=== PATIENT | male | born 1980 | race Caucasian/White ===

== ENCOUNTER → 2018-03-24 | Outpatient (CLI) | payer OTHER ==
[2018-03-24 10:31] LABS: HEMATOCRIT 39.7 % (42.0-52.0); HEMOGLOBIN 13.3 g/dl (13.5-17.5); MEAN CORPUSCULAR HEMOGLOBIN 29.3 pg (27.0-33.0); MEAN CORPUSCULAR HGB CONC 33.5 g/dl (32.0-36.5); MEAN CORPUSCULAR VOLUME 87.4 fl (80.0-96.0); PLATELET COUNT, AUTOMATED 196 10^3/uL (150-450); RED BLOOD COUNT 4.54 10^6/uL (4.30-6.10); RED CELL DISTRIBUTION WIDTH 12.2 % (11.5-14.5); WHITE BLOOD COUNT 3.8 10^3/uL (4.0-10.0)
[2018-03-24 10:46] LABS: ALBUMIN 3.7 GM/DL (3.2-5.2); ALBUMIN/GLOBULIN RATIO 1.06 (1.00-1.93); ALKALINE PHOSPHATASE 112 U/L (45-117); ALT/SGPT 90 U/L (12-78); ANION GAP 7 MEQ/L (8-16); AST/SGOT 24 U/L (7-37); BILIRUBIN,TOTAL 0.6 MG/DL (0.2-1.0); BLOOD UREA NITROGEN 9 MG/DL (7-18); CALCIUM LEVEL 8.6 MG/DL (8.5-10.1); CARBON DIOXIDE LEVEL 28 MEQ/L (21-32); CHLORIDE LEVEL 107 MEQ/L (98-107); CREATININE FOR GFR 0.87 MG/DL (0.70-1.30); GLOMERULAR FILTRATION RATE > 60.0 (>60); GLUCOSE, FASTING 101 MG/DL (70-100); POTASSIUM SERUM 4.3 MEQ/L (3.5-5.1); SODIUM LEVEL 142 MEQ/L (136-145); TOTAL PROTEIN 7.2 GM/DL (6.4-8.2)
[2018-03-24 12:34] LABS: CHLAMYDIA DNA AMPLIFICATION NEGATIVE (NEGATIVE); GC DNA AMPLIFICATION NEGATIVE (NEGATIVE)
[2018-03-25 10:34] LABS: HEPATITIS B SURFACE ANTIGEN NEGATIVE (NEGATIVE)
[2018-03-25 10:53] LABS: HIV 1&2 SCREEN CENTAUR NEGATIVE (NEGATIVE)
[2018-03-25 11:14] LABS: HEPATITIS C VIRUS ABY INDEX 1.6 INDEX (<0.8)
== END ==
LOC: M LAB 09:49
DX: F11.20 Opioid dependence, uncomplicated (principal); I45.10 Unspecified right bundle-branch block; R00.1 Bradycardia, unspecified
CPT/HCPCS: 93005

== ENCOUNTER 2018-07-15 09:47 | Emergency (ER) | payer OTHER ==
[2018-07-15] MEDS: ACETAMINOPHEN 325 MG TAB PO (10:28)
[2018-07-15] MEDS: METHOCARBAMOL 500 MG TAB PO (10:28)
== END 2018-07-15 11:30 | disposition home or self-care (01) ==
LOC: M ED 09:47
DX: S09.90XA Unspecified injury of head, initial encounter (principal); W11.XXXA Fall on and from ladder, initial encounter; Y92.89 Other specified places as the place of occurrence of the external cause
CPT/HCPCS: 70450

== ENCOUNTER 2018-11-05 13:01 | Emergency (ER) | payer OTHER ==
[~2018-11-05] VITALS: Ht 193 cm; Wt 115.9 kg
[~2018-11-05 13:01] MED LIST: IBUP-1022 PO; IBUP200T45 PO; METH10CO3 PO; NEUR300C PO; ROBA500T PO
[2018-11-05] MEDS ORDERED: PERCOCET 5MG/325MG TAB PO ONE (14:00)
--- NOTE | 2018-11-05 14:46 | REP ---
Right hand series: Four views. History: Injury in a fall. Findings: Four views of the right hand demonstrate overall mineralization. There is no evidence of fracture or subluxation. Impression: Negative radiographs of the right hand. Electronically Signed by Adi Gaffney MD 11/05/2018 02:38 P
--- NOTE | 2018-11-05 14:58 | REP ---
RIGHT FOREARM, TWO VIEWS: HISTORY: Fall. There is no acute fracture or dislocation. The joint spaces are normal in appearance. IMPRESSION: There is no acute fracture or dislocation. Electronically Signed by Alphonse Trevino MD 11/05/2018 02:58 P
[2018-11-05] MEDS ORDERED: IBUP-1022 PO (15:10)
[2018-11-05 15:29] VITALS: BP 148/86
== END 2018-11-05 15:28 | disposition home or self-care (01) ==
LOC: M ED 13:01
DX: S63.501A Unspecified sprain of right wrist, initial encounter (principal); S60.221A Contusion of right hand, initial encounter; W19.XXXA Unspecified fall, initial encounter; Y92.099 Unspecified place in other non-institutional residence as the place of occurrence of the external cause; Y93.9 Activity, unspecified; Y99.9 Unspecified external cause status; Z72.0 Tobacco use; Z79.899 Other long term (current) drug therapy; Z88.0 Allergy status to penicillin

== ENCOUNTER 2019-02-12 10:06 | Emergency (ER) | payer OTHER ==
[~2019-02-12] VITALS: Ht 193 cm; Wt 114.5 kg
[2019-02-12 10:06] VITALS: BP 148/77
[2019-02-12] MEDS ORDERED: IBUP80TA PO (11:07)
[2019-02-12] MEDS ORDERED: GABA-843 PO (11:07)
== END 2019-02-12 11:17 | disposition home or self-care (01) ==
LOC: M ED 10:06
DX: Z76.0 Encounter for issue of repeat prescription (principal); G89.29 Other chronic pain; M54.9 Dorsalgia, unspecified; Z87.81 Personal history of (healed) traumatic fracture; M41.9 Scoliosis, unspecified; F19.10 Other psychoactive substance abuse, uncomplicated; Z72.0 Tobacco use; Z79.899 Other long term (current) drug therapy; Z88.0 Allergy status to penicillin

== ENCOUNTER → 2019-05-14 | Outpatient (CLI) | payer OTHER ==
[~2019-05-14] MED LIST changes: +GABA-843 PO; +IBUP80TA PO
--- NOTE | 2019-05-15 16:08 | ECGEPIP ---
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
== END ==
LOC: M EKG 10:37
PROVIDERS: ATTEND Nurse Practitioner Family
DX: F11.20 Opioid dependence, uncomplicated (principal)

== ENCOUNTER 2019-06-07 15:50 | Emergency (ER) | payer MEDICAID, OTHER ==
[~2019-06-07] VITALS: Ht 193 cm; Wt 122.1 kg
[2019-06-07 15:50] VITALS: BP 144/84
--- NOTE | 2019-06-07 18:34 | REP ---
Left femur series: Four views. History: Injury in a fall. Findings: Four views of the left femur show no evidence of fracture or subluxation. Femoral head is smooth and rounded. Hip joint spaces preserved. There is a metallic density superimposed on the left groin consistent with clothing artifact. Impression: No fracture seen. Electronically Signed by Adi Gaffney MD 06/07/2019 06:26 P
--- NOTE | 2019-06-07 18:47 | REPVR ---
EXAM: CT Head Without Contrast EXAM DATE/TIME: 06/07/2019 5:55 PM CLINICAL HISTORY: 39 years old, male; Pain; Other: Fall; Additional info: Fall 6ft TECHNIQUE: Imaging protocol: Computed tomography of the head without contrast. Radiation optimization: All CT scans at this facility use at least one of these dose optimization techniques: automated exposure control; mA and/or kV adjustment per patient size (includes targeted exams where dose is matched to clinical indication); or iterative reconstruction. COMPARISON: CT Head without contrast 07/15/2018 10:10 AM FINDINGS: Brain: No hemorrhage. Unremarkable white matter for the patient's age. No mass effect. No evolving territorial infarct. Hypodensities in the region of the lentiform nuclei, likely perivascular spaces. Ventricles: No ventriculomegaly. Bones/joints: Unremarkable. No acute fracture. Sinuses: Visualized sinuses are unremarkable. No fluid levels. Mastoid air cells: Visualized mastoid air cells are well aerated. Soft tissues: Unremarkable. IMPRESSION: No acute intracranial abnormality seen. Electronically signed by: Naty York On 06/07/2019 18:47:23 PM
--- NOTE | 2019-06-07 18:53 | REPVR ---
EXAM: CT Cervical Spine Without Contrast EXAM DATE/TIME: 06/07/2019 5:55 PM CLINICAL HISTORY: 39 years old, male; Pain; Other: Fall; Additional info: Fall 6ft TECHNIQUE: Imaging protocol: Computed tomography images of the cervical spine without contrast. Radiation optimization: All CT scans at this facility use at least one of these dose optimization techniques: automated exposure control; mA and/or kV adjustment per patient size (includes targeted exams where dose is matched to clinical indication); or iterative reconstruction. COMPARISON: CT Spine,cervical w/o contrast 07/15/2018 10:10 AM FINDINGS: Vertebrae: Reversal of the cervical lordosis may be positional or due to muscle spasm. No acute fracture seen. The degree of osseous mineralization is advanced/atypical for age. Discs/Spinal canal/Neural foramina: No significant disc height loss. Slight lower cervical prevertebral spondylosis. Soft tissues: Unremarkable. Oropharynx: Mild enlargement of the lingual tonsils, probably incidental. Lungs: Lung apices are normal. IMPRESSION: No cervical spine fracture seen. Electronically signed by: Naty York On 06/07/2019 18:53:01 PM
--- NOTE | 2019-06-07 19:03 | REPVR ---
EXAM: CT Thoracic Spine Without Contrast EXAM DATE/TIME: 06/07/2019 5:55 PM CLINICAL HISTORY: 39 years old, male; Pain; Other: Fall; Additional info: Fall 6ft TECHNIQUE: Imaging protocol: Computed tomography images of the thoracic spine without contrast. Radiation optimization: All CT scans at this facility use at least one of these dose optimization techniques: automated exposure control; mA and/or kV adjustment per patient size (includes targeted exams where dose is matched to clinical indication); or iterative reconstruction. COMPARISON: No relevant prior studies available. FINDINGS: Vertebrae: The degree of osseous demineralization is advanced for age. Mild mid thoracic dextroconvex scoliosis. No acute fracture seen. Discs/Spinal canal/Neural foramina: No spinal stenosis. Soft tissues: Unremarkable. Small hiatal hernia. IMPRESSION: No thoracic spine fracture seen. Electronically signed by: Naty York On 06/07/2019 19:03:28 PM
--- NOTE | 2019-06-07 19:09 | REPVR ---
EXAM: CT Lumbar Spine Without Contrast EXAM DATE/TIME: 06/07/2019 5:55 PM CLINICAL HISTORY: 39 years old, male; Pain; Other: Fall; Additional info: Fall 6ft TECHNIQUE: Imaging protocol: Computed tomography images of the lumbar spine without contrast. Radiation optimization: All CT scans at this facility use at least one of these dose optimization techniques: automated exposure control; mA and/or kV adjustment per patient size (includes targeted exams where dose is matched to clinical indication); or iterative reconstruction. COMPARISON: No relevant prior studies available. FINDINGS: Vertebrae: The degree of osseous demineralization is advanced for age. Slight upper lumbar levoconvex scoliosis. No acute fracture seen. Mild to moderate chronic appearing L3 vertebral body central compression without osseous retropulsion; excavation of the L3 superior and inferior endplates by Schmorl's nodes. Discs/Spinal canal/Neural foramina: Mild disc height loss at L2-3. No high-grade stenoses. Kidneys and ureters: There is a punctate nonobstructing right renal calculus. Soft tissues: Unremarkable. IMPRESSION: 1. No acute lumbar fracture seen. 2. Chronic L3 vertebral body compression deformity. Electronically signed by: Naty York On 06/07/2019 19:08:39 PM
[2019-06-07] MEDS ORDERED: IBUPROFEN 600 MG TAB PO ONE (20:00)
[2019-06-07] MEDS ORDERED: IBUP-1022 PO (20:04)
[2019-06-07] MEDS ORDERED: CYCL10TA PO (20:04)
== END 2019-06-07 20:19 | disposition home or self-care (01) ==
LOC: M ED 15:50
DX: S80.212A Abrasion, left knee, initial encounter (principal); T14.8XXA Other injury of unspecified body region, initial encounter; W11.XXXA Fall on and from ladder, initial encounter; Y92.018 Other place in single-family (private) house as the place of occurrence of the external cause; F17.210 Nicotine dependence, cigarettes, uncomplicated

== ENCOUNTER 2019-07-15 13:05 | Inpatient (IN) | payer OTHER ==
[~2019-07-15] VITALS: Ht 193 cm; Wt 122.7 kg
[~2019-07-15 13:05] MED LIST changes: +CYCL10TA PO
[2019-07-15] MEDS ORDERED: fentaNYL 100 MCG/2 ML INJECTION (J3010) As Ordered ONE (13:14)
[2019-07-15] MEDS ORDERED: ADACEL/BOOSTRIX VACCINE (DIPHTH/PERTUSS/ACELL/TETANUS)0.5ML SYR (90715) IM ONE (13:15)
[2019-07-15] MEDS ORDERED: LIDOCAINE 2% 5ML JELLY UROJET TOP ONE (13:15)
[2019-07-15] MEDS ORDERED: fentaNYL 100 MCG/2 ML INJECTION (J3010) IV ONE (13:15)
[2019-07-15] MEDS ORDERED: NS 1,000 ML IV ONE (13:15)
[2019-07-15] MEDS ORDERED: ceFAZolin SOD 2 GM in IV 1 EA IV ONE (13:30)
[2019-07-15] MEDS ORDERED: CLON-412 PO (13:36)
[2019-07-15] MEDS ORDERED: GABA600T4 PO (13:36)
[2019-07-15] MEDS: fentaNYL 100 MCG/2 ML INJECTION (J3010) IV PRN ×5 (13:40→21:48)
[2019-07-15] MEDS ORDERED: LORazepam 2 MG/ML VIAL (J2060) IV STA ×2 (13:43→14:50)
[2019-07-15] MEDS ORDERED: LORazepam 2 MG/ML VIAL (J2060) As Ordered ONE (13:44)
[2019-07-15 13:48] LABS: BASO # 0.1 10^3/uL (0.0-0.2); BASO % 0.6 % (0.0-1.0); EOS # 0.2 10^3/uL (0.0-0.5); EOS % 2.1 % (0.0-3.0); HEMATOCRIT 41.1 % (42.0-52.0); HEMOGLOBIN 13.6 g/dl (13.5-17.5); LYMPH # 3.8 10^3/uL (1.5-5.0); LYMPH % 40.4 % (24.0-44.0); MEAN CORPUSCULAR HEMOGLOBIN 30.8 pg (27.0-33.0); MEAN CORPUSCULAR HGB CONC 33.1 g/dl (32.0-36.5); MEAN CORPUSCULAR VOLUME 93.2 fl (80.0-96.0); MONO # 0.7 10^3/uL (0.0-0.8); NEUTROPHILS # 4.7 10^3/uL (1.5-8.5); NEUTROPHILS % 49.5 % (36.0-66.0); PLATELET COUNT, AUTOMATED 185 10^3/uL (150-450); RED BLOOD COUNT 4.41 10^6/uL (4.30-6.10); WHITE BLOOD COUNT 9.4 10^3/uL (4.0-10.0)
[2019-07-15 14:20] LABS: ALBUMIN 3.9 GM/DL (3.2-5.2); ALT/SGPT 46 U/L (12-78); AMYLASE 26 U/L (25-115); BILIRUBIN,DIRECT 0.2 MG/DL (0.0-0.2); BILIRUBIN,TOTAL 0.3 MG/DL (0.2-1.0); BLOOD UREA NITROGEN 16 MG/DL (7-18); CALCIUM LEVEL 9.6 MG/DL (8.5-10.1); CARBON DIOXIDE LEVEL 27 MEQ/L (21-32); CHLORIDE LEVEL 106 MEQ/L (98-107); CK-MB VALUE MASS 4.2 NG/ML (<3.6); CPK CREATINE PHOSPHOKINASE 1472 U/L (39-308); CREATININE FOR GFR 1.21 MG/DL (0.70-1.30); ETHYL ALCOHOL (ETHANOL) 0.132 % (0.000-0.010); GLOMERULAR FILTRATION RATE > 60.0 (>60); GLUCOSE, FASTING 82 MG/DL (70-100); LIPASE 95 U/L (73-393); MB/CK RELATIVE INDEX 0.29 (< OR =4); SODIUM LEVEL 140 MEQ/L (136-145); TOTAL PROTEIN 6.8 GM/DL (6.4-8.2); TROPONIN I < 0.02 NG/ML (< 0.10)
--- NOTE | 2019-07-15 14:26 | REP ---
Single view chest: 07/15/2019. Indication: Chest trauma. Comparison: None. Findings: The lungs are clear without evidence of contusion or airspace consolidation. There is no evidence of significant pleural effusion. The very tip of the right costophrenic angle is not within the field of view. There is no pneumothorax. No post traumatic abnormalities of the ribs or additional visualized osseous structures are noted. The cardiac silhouette is within normal limits. Impression: No acute cardiopulmonary or post traumatic abnormalities. Electronically Signed by Seth Cabrera DO 07/15/2019 02:18 P
--- NOTE | 2019-07-15 14:35 | REP ---
Bilateral tib-fib series: Nine views. History: Trauma. Findings: Multiple views of the right tibia and fibula demonstrate a severely comminuted, displaced and angulated distal tib-fib fracture. The tibial fracture shows 34 degrees of apex lateral angulation. No proximal tibial or fibular fracture is seen. There is 1 cm of medial displacement of the distal tibial fracture fragment. Fracture in the tibia does not appear to involve the articular surface of the distal tibia. There is some soft tissue gas adjacent to the fracture consistent with this being an open injury. Multiple views of the left tib-fib demonstrate a displaced comminuted open mid shaft left tibia and fibular fractures. The tibial fracture shows anterior displacement, 2.3 cm and some override in addition there is significant comminution. The fibular fracture shows some posterior displacement. There is mild apex medial angulation. Impression: Comminuted open bilateral tib-fib fractures as above. Electronically Signed by Adi Gaffney MD 07/15/2019 02:27 P
[2019-07-15 14:51] LABS: AMPHETAMINES LEVEL URINE NEGATIVE (NEGATIVE); BARBITURATES URINE NEGATIVE (NEGATIVE); BENZODIAZEPINES URINE NEGATIVE (NEGATIVE); CANNABINOIDS URINE NEGATIVE (NEGATIVE); COCAINE METABOLITE URINE NEGATIVE (NEGATIVE); METHADONE URINE POSITIVE (NEGATIVE); OPIATES URINE NEGATIVE (NEGATIVE); PHENCYCLIDINE URINE NEGATIVE (NEGATIVE)
[2019-07-15] MEDS ORDERED: HYDROMORPHONE HCL 0.5 MG/ 0.5 ML SYRINGE (J1170 PER 1) As Ordered ONE ×5 (14:57→20:52)
[2019-07-15] MEDS ORDERED: HYDROmorphone 2 MG TAB PO ONE (15:00)
[2019-07-15] MEDS ORDERED: IBUP80TA PO (15:33)
[2019-07-15 15:41] LABS: INR 1.06; PARTIAL THROMBOPLASTIN TIME 28.1 SECONDS (25.0-38.4); PROTHROMBIN TIME 13.5 SECONDS (11.8-14.0)
--- NOTE | 2019-07-15 15:46 | ECGEPIP ---
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
[2019-07-15] MEDS ORDERED: ceFAZolin 1GM INJ (J0690 PER 500MG) As Ordered ONE (16:36)
[2019-07-15] MEDS ORDERED: DESFLURANE 240 ML INHALANT As Ordered ONE (17:02)
[2019-07-15] MEDS ORDERED: KETAMINE HCL 200 MG/20 ML VIAL As Ordered ONE (17:02)
[2019-07-15] MEDS ORDERED: ROCURONIUM BROMIDE 50 MG/5 ML VIAL As Ordered ONE ×2 (17:02→17:46)
[2019-07-15] MEDS ORDERED: SUGAMMADEX SODIUM 500 MG/5 ML VIAL (BRIDION) As Ordered ONE (17:02)
[2019-07-15] MEDS ORDERED: dexameTHASONE 4 MG/ML 1ML VIAL (J1100) As Ordered ONE (17:02)
[2019-07-15] MEDS ORDERED: fentaNYL 250 MCG/5 ML INJECTION (J3010) As Ordered ONE ×2 (17:02→19:39)
[2019-07-15] MEDS ORDERED: MIDAZOLAM INJ 2 MG/2 ML VIAL (J2250) As Ordered ONE (17:02)
[2019-07-15] MEDS ORDERED: ONDANSETRON 4MG/2ML VIAL (J2405) As Ordered ONE ×2 (17:02→20:22)
[2019-07-15] MEDS ORDERED: SUCCINYLCHOLINE 100 MG/5 ML SYRINGE (J0330) As Ordered ONE (17:02)
[2019-07-15] MEDS ORDERED: LIDOCAINE 2% INJ 100 MG/5 ML SDV (FOR ANES.) As Ordered ONE (17:02)
[2019-07-15] MEDS ORDERED: PROPOFOL 200 MG/20 ML VIAL As Ordered ONE (17:02)
[2019-07-15] MEDS ORDERED: METOCLOPRAMIDE INJ 10MG/2ML VIAL (J2765) As Ordered ONE (17:02)
[2019-07-15] MEDS ORDERED: HYDROmorphone HCL 2 MG/ML 1ML VIAL (J1170) As Ordered ONE ×2 (19:14→19:47)
[2019-07-15] MEDS ORDERED: hydrALAZINE INJ 20 MG/ML VIAL As Ordered ONE (19:32)
[2019-07-15] MEDS ORDERED: fentaNYL 100 MCG/2 ML INJECTION (J3010) IV PRN (20:00)
[2019-07-15] MEDS ORDERED: LR 1,000 ML IV SCH (20:00)
[2019-07-15] MEDS ORDERED: ONDANSETRON 4MG/2ML VIAL (J2405) IV PRN (20:00)
[2019-07-15] MEDS ORDERED: oxyCODONE 5MG TAB PO PRN ×3 (20:00→21:00)
[2019-07-15] MEDS ORDERED: MEPERIDINE INJ 25 MG/ML VIAL (J2175) IV PRN ×2 (20:00→21:00)
[2019-07-15] MEDS ORDERED: HYDROMORPHONE HCL 0.5 MG/ 0.5 ML SYRINGE (J1170 PER 1) IV PRN ×2 (20:00)
[2019-07-15] MEDS ORDERED: MEPERIDINE INJ 25 MG/ML VIAL (J2175) As Ordered ONE (20:13)
[2019-07-15] MEDS: HYDROMORPHONE HCL 0.5 MG/ 0.5 ML SYRINGE (J1170 PER 1) IV PRN ×4 (20:30→20:54)
[2019-07-15] MEDS ORDERED: HYDROmorphone HCL 2 MG/ML 1ML VIAL (J1170) IV PRN ×3 (20:45→21:00)
[2019-07-15] MEDS ORDERED: LORazepam 2 MG TAB PO PRN (20:45)
[2019-07-15] MEDS ORDERED: oxyCODONE 5MG TAB As Ordered ONE ×2 (20:55→21:15)
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
[2019-07-15 21:36] VITALS: BP 150/76
[2019-07-15 21:45] VITALS: BP 150/76
[2019-07-15 22:00] VITALS: BP 150/76
[2019-07-15] MEDS ORDERED: PERCOCET 5MG/325MG TAB PO PRN ×2 (22:45)
[2019-07-15] MEDS ORDERED: ceFAZolin 1GM INJ (J0690 PER 500MG) IV SCH (22:45)
[2019-07-15 22:49] VITALS: BP 142/76
[2019-07-15] MEDS: THIAMINE 100 MG TAB PO SCH (22:53)
[2019-07-15] MEDS: HYDROmorphone HCL 2 MG/ML 1ML VIAL (J1170) IV PRN (23:36)
[2019-07-15] MEDS: ENOXAPARIN 30 MG/0.3 ML SYR (J1650) SC SCH (23:41)
[2019-07-15] MEDS: ceFAZolin SOD 1 GM in D5W MINI-BAG PLUS 50 ML IV SCH (23:41)
[2019-07-15] MEDS: NICOTINE 21MG/24HR 1 EA TRANSDERMAL TD SCH (23:46)
[2019-07-16] VITALS (25 sets, daily range): BP systolic 138–160; BP diastolic 63–76; O2SAT 96–100
[2019-07-16] MEDS: HYDROmorphone HCL 2 MG/ML 1ML VIAL (J1170) IV PRN ×3 (02:34→08:55)
[2019-07-16] MEDS: MORPHINE 4 MG/ML 1ML VIAL/SYRINGE (J2270) IV PRN ×3 (04:59→11:08)
[2019-07-16 05:13] LABS: HEMOGLOBIN 10.2 g/dl (13.5-17.5); MEAN CORPUSCULAR HGB CONC 32.9 g/dl (32.0-36.5); MEAN CORPUSCULAR VOLUME 94.2 fl (80.0-96.0); PLATELET COUNT, AUTOMATED 152 10^3/uL (150-450); RED BLOOD COUNT 3.29 10^6/uL (4.30-6.10); WHITE BLOOD COUNT 7.3 10^3/uL (4.0-10.0)
[2019-07-16 06:01] LABS: ALT/SGPT 35 U/L (12-78); BILIRUBIN,TOTAL 0.6 MG/DL (0.2-1.0); BLOOD UREA NITROGEN 10 MG/DL (7-18); CALCIUM LEVEL 8.1 MG/DL (8.5-10.1); CARBON DIOXIDE LEVEL 24 MEQ/L (21-32); CHLORIDE LEVEL 109 MEQ/L (98-107); CPK CREATINE PHOSPHOKINASE 1980 U/L (39-308); CREATININE FOR GFR 0.88 MG/DL (0.70-1.30); GLOMERULAR FILTRATION RATE > 60.0 (>60); GLUCOSE, FASTING 100 MG/DL (70-100); POTASSIUM SERUM 3.9 MEQ/L (3.5-5.1); SODIUM LEVEL 140 MEQ/L (136-145); TOTAL PROTEIN 5.9 GM/DL (6.4-8.2)
[2019-07-16] MEDS: ceFAZolin SOD 1 GM in D5W MINI-BAG PLUS 50 ML IV SCH ×3 (06:29→23:18)
--- NOTE | 2019-07-16 06:35 | REP ---
Clinical: Open reduction and fixation. Technique: Intraoperative fluoroscopic imaging using portable C-arm technique right ankle. Findings: The patient is noted to be status post open reduction and fixation for comminuted distal tibial and fibular fractures. Total fluoroscopic time 36 seconds. Impression: Status post open reduction and fixation. Electronically Signed by Hero Beverly MD 07/16/2019 06:26 A
--- NOTE | 2019-07-16 06:36 | REP ---
Clinical: Open reduction and fixation. Technique: Intraoperative fluoroscopic imaging using portable C-arm technique left ankle. Findings: The patient is noted to be status post open reduction and fixation for comminuted distal tibial and fibular fractures. Total fluoroscopic time 2 minutes 11 seconds Impression: Status post open reduction and fixation. Electronically Signed by Hero Beverly MD 07/16/2019 06:27 A
[2019-07-16] MEDS: THIAMINE 100 MG TAB PO SCH ×2 (08:33→21:26)
[2019-07-16] MEDS: ENOXAPARIN 30 MG/0.3 ML SYR (J1650) SC SCH ×2 (08:33→21:26)
[2019-07-16] MEDS: NICOTINE 21MG/24HR 1 EA TRANSDERMAL TD SCH (08:34)
[2019-07-16] MEDS: FOLIC ACID 1 MG TAB PO SCH (08:34)
[2019-07-16] MEDS: MULTIVITAMINS/MINERALS THERAP 1 TAB PO SCH (08:34)
[2019-07-16] MEDS: MIRALAX *UNIT DOSE* 17GM PACKET PO SCH (09:00)
[2019-07-16] MEDS: MOM 30ML SUSPENSION UDC PO SCH (09:00)
[2019-07-16] MEDS: SENOKOT S TAB PO SCH ×2 (09:00→21:00)
[2019-07-16] MEDS ORDERED: PILL CUTTER 1 EACH XX PRN (11:00)
[2019-07-16] MEDS: METHADONE 10 MG TAB (S0109) PO SCH (11:09)
[2019-07-16] MEDS ORDERED: NALOXONE INJ 0.4 MG/1 ML VIAL (J2310) IV PRN (11:15)
[2019-07-16] MEDS ORDERED: NALBUPHINE HCL 10 MG/ML AMP (J2300) IV PRN (11:15)
[2019-07-16] MEDS: NS 1,000 ML IV SCH (12:35)
[2019-07-16] MEDS: MORPHINE 1MG/ML IN 0.9% NACL 100ML IV BAG IV PRN ×2 (12:36→23:17)
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
--- NOTE | 2019-07-16 19:09 | IPNPDOC ---
Text Note Date of Service The patient was seen on 07/16/19. NOTE SUBJECTIVE: Patient continues with remarkable pain to his injuries sites. This despite being on Dilantin per increased pain control protocol. Patient sustained injuries of bilateral tib-fib fractures with displacement. OBJECTIVE: Physical exam HENT: Neck is supple with no adenopathy or thyromegaly, patient has considerable scleral injection with eyelid edema, he has been quite tearful. Cardiovascular: Regular rate and rhythm with a normal S1 and S2 and no appreciable murmur or bruit. Respiratory: Otherwise clear to auscultation with no rhonchi, rales or wheezes. Abdomen: Soft, nontender, nondistended, moderate obesity, relative to his overall body habitus. Extremities: External fixator remains to right lower extremity, foot is warm to touch. Wound VAC remains in place to left lower extremity with compression dressing and foot is warm to touch. Neuro: No focal neuromotor deficit. Psych: Patient has considerable emotional distress from pain ASSESSMENT/PLAN: 1. Bilateral lower extremity tib-fib fractures. The left lower extremity is status post open reduction and internal fixation with a marija. The right lower extremity will require fixation later date and efren justice has an external fixator. Radiology images of his fractures were reviewed with the patient. The patient is nonweightbearing. 2. Pain control. The patient has a history of opiate dependency and is in a methadone program. He has had poor pain control. Management has been discussed with his methadone residency program coordinator at [facility]. Recommendations were to continue the patient's current methadone dosing of 145 mg per day. We discussed the patient's poor response to Dilaudid; recommendation was made for fentanyl TICKET TAKER FERRYBOAT, which is not available at this facility. With the assistance of pharmacy service. I have calculated approximate morphine equivalents with increased dosing that we hope will provide pain control; this will be administered by morphine TICKET TAKER FERRYBOAT. 3. Alcohol abuse. Patient did have alcohol intoxication upon admission. We do not have a history of his use; patient has been placed on [facility] protocol for possible alcohol withdrawal. VS,Fishbone, I+O VS, Fishbone, I+O Laboratory Tests 07/16/19 05:00 Vital Signs Date Time Temp Pulse Resp B/P (MAP) Pulse Ox O2 Delivery O2 Flow Rate FiO2 07/16/19 18:00 97 Room Air 07/16/19 14:00 97.9 74 19 142/76 (98) 07/16/19 05:41 2.0 I&O- Last 24 Hours up to 6 AM 07/16/19 06:00 Intake Total 3160 ml Output Total 3350 ml Balance -190 ml JACKY CHURCH MD Jul 16, 2019 19:09
[2019-07-16] MEDS ORDERED: MORPHINE 10 MG/ML 1ML VIAL (J2270) IV ONE (21:15)
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
[2019-07-17] VITALS (20 sets, daily range): BP systolic 131–158; BP diastolic 64–77; O2SAT 95–99
[2019-07-17 04:46] LABS: HEMATOCRIT 29.9 % (42.0-52.0); HEMOGLOBIN 9.8 g/dl (13.5-17.5); MEAN CORPUSCULAR HEMOGLOBIN 31.4 pg (27.0-33.0); MEAN CORPUSCULAR HGB CONC 32.8 g/dl (32.0-36.5); MEAN CORPUSCULAR VOLUME 95.8 fl (80.0-96.0); PLATELET COUNT, AUTOMATED 138 10^3/uL (150-450); RED BLOOD COUNT 3.12 10^6/uL (4.30-6.10)
[2019-07-17 05:22] LABS: ALT/SGPT 31 U/L (12-78); BILIRUBIN,TOTAL 0.4 MG/DL (0.2-1.0); BLOOD UREA NITROGEN 8 MG/DL (7-18); CALCIUM LEVEL 7.8 MG/DL (8.5-10.1); CARBON DIOXIDE LEVEL 31 MEQ/L (21-32); CHLORIDE LEVEL 105 MEQ/L (98-107); CREATININE FOR GFR 0.79 MG/DL (0.70-1.30); GLOMERULAR FILTRATION RATE > 60.0 (>60); GLUCOSE, FASTING 105 MG/DL (70-100); POTASSIUM SERUM 3.9 MEQ/L (3.5-5.1); SODIUM LEVEL 138 MEQ/L (136-145); TOTAL PROTEIN 5.5 GM/DL (6.4-8.2)
[2019-07-17] MEDS: ceFAZolin SOD 1 GM in D5W MINI-BAG PLUS 50 ML IV SCH ×3 (08:15→23:09)
[2019-07-17] MEDS: NICOTINE 21MG/24HR 1 EA TRANSDERMAL TD SCH (08:16)
[2019-07-17] MEDS: ENOXAPARIN 30 MG/0.3 ML SYR (J1650) SC SCH ×2 (08:16→21:16)
[2019-07-17] MEDS: THIAMINE 100 MG TAB PO SCH ×2 (08:17→21:15)
[2019-07-17] MEDS: FOLIC ACID 1 MG TAB PO SCH (08:17)
[2019-07-17] MEDS: METHADONE 10 MG TAB (S0109) PO SCH (08:17)
[2019-07-17] MEDS: MULTIVITAMINS/MINERALS THERAP 1 TAB PO SCH (08:17)
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
[2019-07-17] MEDS: SENOKOT S TAB PO SCH ×2 (09:00→21:15)
[2019-07-17] MEDS: MIRALAX *UNIT DOSE* 17GM PACKET PO SCH (09:00)
[2019-07-17] MEDS: MOM 30ML SUSPENSION UDC PO SCH (09:00)
[2019-07-17] MEDS: MORPHINE 1MG/ML IN 0.9% NACL 100ML IV BAG IV PRN ×2 (10:04→17:14)
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
[2019-07-17] MEDS: NS 1,000 ML IV SCH (14:57)
[2019-07-18] VITALS (15 sets, daily range): BP systolic 135–149; BP diastolic 64–69; O2SAT 96–99
[2019-07-18] MEDS: MORPHINE 1MG/ML IN 0.9% NACL 100ML IV BAG IV PRN ×4 (01:14→21:59)
[2019-07-18 04:49] LABS: HEMATOCRIT 29.9 % (42.0-52.0); HEMOGLOBIN 9.6 g/dl (13.5-17.5); MEAN CORPUSCULAR HEMOGLOBIN 30.7 pg (27.0-33.0); MEAN CORPUSCULAR HGB CONC 32.1 g/dl (32.0-36.5); MEAN CORPUSCULAR VOLUME 95.5 fl (80.0-96.0); PLATELET COUNT, AUTOMATED 147 10^3/uL (150-450); RED BLOOD COUNT 3.13 10^6/uL (4.30-6.10); WHITE BLOOD COUNT 7.3 10^3/uL (4.0-10.0)
[2019-07-18] MEDS: ceFAZolin SOD 1 GM in D5W MINI-BAG PLUS 50 ML IV SCH (06:54)
[2019-07-18] MEDS: THIAMINE 100 MG TAB PO SCH (08:11)
[2019-07-18] MEDS: MOM 30ML SUSPENSION UDC PO SCH (08:11)
[2019-07-18] MEDS: MULTIVITAMINS/MINERALS THERAP 1 TAB PO SCH (08:11)
[2019-07-18] MEDS: SENOKOT S TAB PO SCH ×2 (08:11→20:43)
[2019-07-18] MEDS: METHADONE 10 MG TAB (S0109) PO SCH (08:12)
[2019-07-18] MEDS: FOLIC ACID 1 MG TAB PO SCH (08:12)
[2019-07-18] MEDS: NICOTINE 21MG/24HR 1 EA TRANSDERMAL TD SCH (08:13)
[2019-07-18] MEDS: ENOXAPARIN 30 MG/0.3 ML SYR (J1650) SC SCH ×2 (08:13→20:44)
[2019-07-18] MEDS: MIRALAX *UNIT DOSE* 17GM PACKET PO SCH (09:00)
[2019-07-18] MEDS ORDERED: SENNA 8.6 MG TAB (SENOKOT) PO SCH (09:00)
[2019-07-18] MEDS: ESCITALOPRAM OXALATE 10 MG TAB (LEXAPRO) PO SCH (14:17)
[2019-07-18] MEDS: GABAPENTIN 300 MG CAP PO SCH ×3 (14:17→20:43)
[2019-07-18] MEDS: NS 1,000 ML IV SCH (14:20)
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
[2019-07-19 02:00] VITALS: BP 147/70
[2019-07-19] MEDS: MORPHINE 1MG/ML IN 0.9% NACL 100ML IV BAG IV PRN ×5 (05:28→21:16)
[2019-07-19 06:00] VITALS: BP 143/70
[2019-07-19 07:43] LABS: BASO % 0.4 % (0.0-1.0); EOS # 0.2 10^3/uL (0.0-0.5); HEMATOCRIT 30.2 % (42.0-52.0); HEMOGLOBIN 9.5 g/dl (13.5-17.5); LYMPH # 1.5 10^3/uL (1.5-5.0); LYMPH % 20.6 % (24.0-44.0); MEAN CORPUSCULAR HEMOGLOBIN 30.4 pg (27.0-33.0); MEAN CORPUSCULAR HGB CONC 31.5 g/dl (32.0-36.5); MEAN CORPUSCULAR VOLUME 96.5 fl (80.0-96.0); MONO # 0.8 10^3/uL (0.0-0.8); MONO % 11.4 % (0.0-5.0); NEUTROPHILS # 4.5 10^3/uL (1.5-8.5); NEUTROPHILS % 64.2 % (36.0-66.0); PLATELET COUNT, AUTOMATED 195 10^3/uL (150-450); RED BLOOD COUNT 3.13 10^6/uL (4.30-6.10)
[2019-07-19 08:05] LABS: BLOOD UREA NITROGEN 9 MG/DL (7-18); CALCIUM LEVEL 8.7 MG/DL (8.5-10.1); CARBON DIOXIDE LEVEL 31 MEQ/L (21-32); CHLORIDE LEVEL 106 MEQ/L (98-107); CREATININE FOR GFR 0.68 MG/DL (0.70-1.30); GLOMERULAR FILTRATION RATE > 60.0 (>60); GLUCOSE, FASTING 86 MG/DL (70-100); MAGNESIUM LEVEL 2.3 MG/DL (1.8-2.4); POTASSIUM SERUM 3.9 MEQ/L (3.5-5.1); SODIUM LEVEL 141 MEQ/L (136-145)
[2019-07-19] MEDS: SENOKOT S TAB PO SCH ×2 (08:52→20:58)
[2019-07-19] MEDS: NICOTINE 21MG/24HR 1 EA TRANSDERMAL TD SCH (08:52)
[2019-07-19] MEDS: ENOXAPARIN 30 MG/0.3 ML SYR (J1650) SC SCH ×2 (08:52→20:58)
[2019-07-19] MEDS: MOM 30ML SUSPENSION UDC PO SCH (08:52)
[2019-07-19] MEDS: MIRALAX *UNIT DOSE* 17GM PACKET PO SCH (08:52)
[2019-07-19] MEDS: MULTIVITAMINS/MINERALS THERAP 1 TAB PO SCH (08:52)
[2019-07-19] MEDS: ESCITALOPRAM OXALATE 10 MG TAB (LEXAPRO) PO SCH (08:53)
[2019-07-19] MEDS: GABAPENTIN 300 MG CAP PO SCH ×4 (08:53→20:59)
[2019-07-19] MEDS: METHADONE 10 MG TAB (S0109) PO SCH (08:54)
[2019-07-19 10:00] VITALS: BP 139/71
[2019-07-19] MEDS: FOLIC ACID 1 MG TAB PO SCH (11:30)
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
[2019-07-19] MEDS: LACTULOSE 20 GM/30 ML SYRUP UD PO SCH ×3 (12:37→23:25)
[2019-07-19] MEDS: THIAMINE 100 MG TAB PO SCH (12:37)
[2019-07-19] MEDS: NS 1,000 ML IV SCH ×2 (12:38→20:59)
[2019-07-19 14:00] VITALS: BP 138/71
[2019-07-19 19:22] VITALS: BP 138/72
[2019-07-19 21:00] VITALS: O2SAT 96
[2019-07-20 02:09] VITALS: BP 139/73
[2019-07-20] MEDS: MORPHINE 1MG/ML IN 0.9% NACL 100ML IV BAG IV PRN ×4 (03:13→19:31)
[2019-07-20] MEDS: LACTULOSE 20 GM/30 ML SYRUP UD PO SCH ×3 (05:30→17:53)
[2019-07-20 05:32] VITALS: BP 137/57
[2019-07-20] MEDS: MOM 30ML SUSPENSION UDC PO SCH (09:00)
[2019-07-20] MEDS: MIRALAX *UNIT DOSE* 17GM PACKET PO SCH (09:00)
[2019-07-20] MEDS: SENOKOT S TAB PO SCH ×2 (09:07→20:54)
[2019-07-20] MEDS: METHADONE 10 MG TAB (S0109) PO SCH (09:07)
[2019-07-20] MEDS: THIAMINE 100 MG TAB PO SCH (09:07)
[2019-07-20] MEDS: ENOXAPARIN 30 MG/0.3 ML SYR (J1650) SC SCH ×2 (09:07→20:59)
[2019-07-20] MEDS: FOLIC ACID 1 MG TAB PO SCH (09:07)
[2019-07-20] MEDS: GABAPENTIN 300 MG CAP PO SCH ×4 (09:07→20:59)
[2019-07-20] MEDS: MULTIVITAMINS/MINERALS THERAP 1 TAB PO SCH (09:08)
[2019-07-20] MEDS: NICOTINE 21MG/24HR 1 EA TRANSDERMAL TD SCH (09:08)
[2019-07-20] MEDS: ESCITALOPRAM OXALATE 10 MG TAB (LEXAPRO) PO SCH (09:08)
[2019-07-20 10:00] VITALS: BP 137/71
[2019-07-20] MEDS ORDERED: FLEET ENEMA PR PRN (11:45)
--- NOTE | 2019-07-20 13:03 | IPNPDOC ---
Text Note Date of Service The patient was seen on 07/20/19. NOTE Subjective: Patient was seen and examined at the bedside. Patient still reports that he's experiencing severe pain of his lower extremities. Reports that his right leg is worse than his left leg. Denies chest pain, shortness of breath or palpitations. Patient reports constipation and has not had a bowel movement in over 3 days. Objective: Vitals (See below) General: Lying in bed, AAOx3, crying because of pain. HEENT: NC, AT, moist mucus membranes, anicteric eyes. CVS: RRR, +S1S2, n rub , murmur or gallop Lungs: Fair air entry b/l, -w/r/r Abdomen: Soft, ND, NT Extremities: - Edema, - Calf tenderness, L LE in dressing ,R LE with external fixator device Assessment and plan: Bilateral lower extremity tib-fib fractures - 2/2 crush injury from [employer] truck - L LE with dressing in place - R LE with external fixator device present - Discussed with orthopedic surgery; patient will require intervention - current date undetermined; anticipate next week - Currently remains non-weight bearing - Orthopedic surgery on consultation Acute on Chronic Pain - Hx of Opiate dependency; has been on Methadone program at [facility] (Marianne pain nurse at [place] program: [phone]; administrative medical director Dr. Warren) - c/w Methadone at home dose of 145mg daily - Recommendations from [facility] Pain control was for Fentyl ETHYLENE COMPRESSOR OPERATOR; however based on formulary restrictions, will c/w Morphine ETHYLENE COMPRESSOR OPERATOR for now . Dose adjusted on 07/19 Normocytic anemia - likely 2/2 dilutional etiology, less likely 2/2 acute blood loss 2/2 fractures - No evidence of active bleeding - Will continue to monitor Constipation - likely 2/2 opiate use - c/w Bowel regimen as ordered - Will add Lactulose to induce BM; titrated to 1-2 BM daily Alcohol abuse - Intoxicated upon admission - No evidence of withdrawal - c/w Thiamine, Folate and MVI Neuropathy - c/w Gabapentin Mood disorder - c/w Escitalopram DVT prophylaxis - c/w Lovenox Disposition: - Will need definitive innervation of R LE - c/w PT; will need to go to Rehab acute vs subacute after surgery. VS,Fishbone, I+O VS, Fishbone, I+O Vital Signs Date Time Temp Pulse Resp B/P (MAP) Pulse Ox O2 Delivery O2 Flow Rate FiO2 07/20/19 10:00 97.7 68 14 137/71 (93) 96 Room Air 07/16/19 05:41 2.0 I&O- Last 24 Hours up to 6 AM 07/20/19 06:00 Intake Total 1880 ml Output Total 1550 ml Balance 330 ml CAIO SMITH MD Jul 20, 2019 13:03
[2019-07-20 14:00] VITALS: BP 157/70
[2019-07-20 18:00] VITALS: BP 152/69
[2019-07-20 22:00] VITALS: BP 142/70
[2019-07-21] VITALS (7 sets, daily range): BP systolic 125–156; BP diastolic 63–71; O2SAT 95
[2019-07-21] MEDS: MORPHINE 1MG/ML IN 0.9% NACL 100ML IV BAG IV PRN ×2 (03:11→09:37)
[2019-07-21] MEDS: LACTULOSE 20 GM/30 ML SYRUP UD PO SCH ×2 (06:00)
[2019-07-21] MEDS ORDERED: LACTULOSE 20 GM/30 ML SYRUP UD PO PRN (06:15)
[2019-07-21] MEDS: MOM 30ML SUSPENSION UDC PO SCH (09:00)
[2019-07-21] MEDS: MIRALAX *UNIT DOSE* 17GM PACKET PO SCH (09:00)
[2019-07-21] MEDS: GABAPENTIN 300 MG CAP PO SCH ×4 (09:35→20:54)
[2019-07-21] MEDS: THIAMINE 100 MG TAB PO SCH (09:35)
[2019-07-21] MEDS: MULTIVITAMINS/MINERALS THERAP 1 TAB PO SCH (09:35)
[2019-07-21] MEDS: SENOKOT S TAB PO SCH ×2 (09:35→20:54)
[2019-07-21] MEDS: FOLIC ACID 1 MG TAB PO SCH (09:35)
[2019-07-21] MEDS: ENOXAPARIN 30 MG/0.3 ML SYR (J1650) SC SCH ×2 (09:36→20:54)
[2019-07-21] MEDS: ESCITALOPRAM OXALATE 10 MG TAB (LEXAPRO) PO SCH (09:36)
[2019-07-21] MEDS: NICOTINE 21MG/24HR 1 EA TRANSDERMAL TD SCH (09:37)
[2019-07-21] MEDS: METHADONE 10 MG TAB (S0109) PO SCH (11:23)
[2019-07-21] MEDS: NS 1,000 ML IV SCH (11:30)
--- NOTE | 2019-07-21 14:35 | IPNPDOC ---
Text Note Date of Service The patient was seen on 07/21/19. NOTE Subjective: Patient was seen and examined at the bedside. Patient still reports that he's experiencing severe pain of his lower extremities. Reports that his right leg is worse than his left leg. Today pain is a little better controlled. Denies chest pain, shortness of breath or palpitations. Had a big bowel movement yesterday. Objective: Vitals (See below) General: Lying in bed, AAOx3, crying because of pain. HEENT: NC, AT, moist mucus membranes, anicteric eyes. CVS: RRR, +S1S2, n rub , murmur or gallop Lungs: Fair air entry b/l, -w/r/r Abdomen: Soft, ND, NT Extremities: - Edema, - Calf tenderness, L LE in dressing ,R LE with external fixator device Assessment and plan: Bilateral lower extremity tib-fib fractures - 2/2 crush injury from [employer] - L LE with dressing in place - R LE with external fixator device present - Discussed with orthopedic surgery; patient will require intervention - current date undetermined; anticipate next week - Currently remains non-weight bearing - Orthopedic surgery on consultation Acute on Chronic Pain - Hx of Opiate dependency; has been on Methadone program at [facility] (Marianne pain nurse at [place] program: [phone]; site medical director Dr. Warren) - c/w Methadone at home dose of 145mg daily - Recommendations from [facility] Pain control was for Fentyl CONTACT LENS BLOCKER AND CUTTER; however based on formulary restrictions, will c/w Morphine CONTACT LENS BLOCKER AND CUTTER for now . Dose adjusted on 07/19 Normocytic anemia - likely 2/2 dilutional etiology, less likely 2/2 acute blood loss 2/2 fractures - No evidence of active bleeding - Will continue to monitor Constipation - likely 2/2 opiate use - c/w Bowel regimen as ordered - Will add Lactulose to induce BM; titrated to 1-2 BM daily Alcohol abuse - Intoxicated upon admission - No evidence of withdrawal - c/w Thiamine, Folate and MVI Neuropathy - c/w Gabapentin Mood disorder - c/w Escitalopram DVT prophylaxis - c/w Lovenox Disposition: - Will need definitive innervation of R LE - c/w PT; will need to go to Rehab acute vs subacute after surgery. VS,Fishbone, I+O VS, Fishbone, I+O Vital Signs Date Time Temp Pulse Resp B/P (MAP) Pulse Ox O2 Delivery O2 Flow Rate FiO2 07/21/19 05:40 97.6 68 15 156/70 (98) 97 Room Air 07/16/19 05:41 2.0 I&O- Last 24 Hours up to 6 AM 07/21/19 06:00 Intake Total 2610 ml Output Total 1500 ml Balance 1110 ml CAIO SMITH MD Jul 21, 2019 14:35
[2019-07-22 01:55] VITALS: BP 134/70
[2019-07-22 05:56] LABS: BASO % 0.5 % (0.0-1.0); EOS # 0.3 10^3/uL (0.0-0.5); EOS % 4.4 % (0.0-3.0); HEMATOCRIT 28.2 % (42.0-52.0); HEMOGLOBIN 9.1 g/dl (13.5-17.5); LYMPH # 1.5 10^3/uL (1.5-5.0); LYMPH % 24.8 % (24.0-44.0); MEAN CORPUSCULAR HEMOGLOBIN 30.7 pg (27.0-33.0); MEAN CORPUSCULAR HGB CONC 32.3 g/dl (32.0-36.5); MEAN CORPUSCULAR VOLUME 95.3 fl (80.0-96.0); MONO # 0.6 10^3/uL (0.0-0.8); MONO % 9.2 % (0.0-5.0); NEUTROPHILS # 3.7 10^3/uL (1.5-8.5); NEUTROPHILS % 60.3 % (36.0-66.0); PLATELET COUNT, AUTOMATED 251 10^3/uL (150-450); RED BLOOD COUNT 2.96 10^6/uL (4.30-6.10); WHITE BLOOD COUNT 6.2 10^3/uL (4.0-10.0)
[2019-07-22 06:13] LABS: BLOOD UREA NITROGEN 10 MG/DL (7-18); CALCIUM LEVEL 8.8 MG/DL (8.5-10.1); CARBON DIOXIDE LEVEL 30 MEQ/L (21-32); CHLORIDE LEVEL 106 MEQ/L (98-107); CREATININE FOR GFR 0.71 MG/DL (0.70-1.30); GLOMERULAR FILTRATION RATE > 60.0 (>60); GLUCOSE, FASTING 96 MG/DL (70-100); POTASSIUM SERUM 3.9 MEQ/L (3.5-5.1); SODIUM LEVEL 140 MEQ/L (136-145)
[2019-07-22] MEDS: MIRALAX *UNIT DOSE* 17GM PACKET PO SCH (09:00)
[2019-07-22] MEDS: MOM 30ML SUSPENSION UDC PO SCH (09:00)
[2019-07-22] MEDS: NICOTINE 21MG/24HR 1 EA TRANSDERMAL TD SCH (09:18)
[2019-07-22] MEDS: THIAMINE 100 MG TAB PO SCH (09:18)
[2019-07-22] MEDS: ENOXAPARIN 30 MG/0.3 ML SYR (J1650) SC SCH ×2 (09:18→20:28)
[2019-07-22] MEDS: FOLIC ACID 1 MG TAB PO SCH (09:19)
[2019-07-22] MEDS: ESCITALOPRAM OXALATE 10 MG TAB (LEXAPRO) PO SCH (09:19)
[2019-07-22] MEDS: SENOKOT S TAB PO SCH ×2 (09:19→20:28)
[2019-07-22] MEDS: GABAPENTIN 300 MG CAP PO SCH ×4 (09:19→20:28)
[2019-07-22] MEDS: METHADONE 10 MG TAB (S0109) PO SCH (09:20)
[2019-07-22 10:05] VITALS: BP 131/71
[2019-07-22] MEDS: NS 1,000 ML IV SCH ×2 (11:06→11:30)
--- NOTE | 2019-07-22 11:24 | IPNPDOC ---
Text Note Date of Service The patient was seen on 07/22/19. NOTE Subjective: Patient was seen and examined at the bedside. Today pain is a little better controlled if he lays still any movement or trying to adjust his position makes the pain unbearable. Denies chest pain, shortness of breath or palpitations. remains on morphine ARMATURE VARNISHER and oral pain meds. Objective: Vitals (See below) General: Lying in bed, AAOx3, crying because of pain. HEENT: NC, AT, moist mucus membranes, anicteric eyes. CVS: RRR, +S1S2, n rub , murmur or gallop Lungs: Fair air entry b/l, -w/r/r Abdomen: Soft, ND, NT Extremities: + Edema in bothe the lower extremities noted in the toes and foot. - Calf tenderness, L LE in dressing ,R LE with external fixator device Assessment and plan: Bilateral lower extremity tib-fib fractures - 2/2 crush injury from [employer] - L LE with dressing in place - R LE with external fixator device present - Discussed with orthopedic surgery; patient will require intervention - current date undetermined; anticipate next week - Currently remains non-weight bearing - Orthopedic surgery on consultation Acute on Chronic Pain - Hx of Opiate dependency; has been on Methadone program at [facility] (Marianne pain nurse at [place] program: [phone]; medical program specialist Dr. Warren) - c/w Methadone at home dose of 145mg daily - Recommendations from [facility] Pain control was for Fentyl ARMATURE VARNISHER; however based on formulary restrictions, will c/w Morphine ARMATURE VARNISHER for now . Dose adjusted on 07/19 Normocytic anemia - likely 2/2 dilutional etiology, less likely 2/2 acute blood loss 2/2 fractures - No evidence of active bleeding - Will continue to monitor Constipation - likely 2/2 opiate use - c/w Bowel regimen as ordered - Will add Lactulose to induce BM; titrated to 1-2 BM daily Alcohol abuse - Intoxicated upon admission - No evidence of withdrawal - c/w Thiamine, Folate and MVI Neuropathy - c/w Gabapentin Mood disorder - c/w Escitalopram DVT prophylaxis - c/w Lovenox Disposition: - Will need definitive innervation of R LE - c/w PT; will need to go to Rehab acute vs subacute after surgery. VS,Fishbone, I+O VS, Fishbone, I+O Laboratory Tests 07/22/19 05:26 Vital Signs Date Time Temp Pulse Resp B/P (MAP) Pulse Ox O2 Delivery O2 Flow Rate FiO2 07/22/19 01:55 97.6 63 17 134/70 (91) 98 Room Air 07/16/19 05:41 2.0 I&O- Last 24 Hours up to 6 AM 07/22/19 06:00 Intake Total 1500 ml Output Total 2475 ml Balance -975 ml CAIO SMITH MD Jul 22, 2019 11:24
[2019-07-22] MEDS: MORPHINE 1MG/ML IN 0.9% NACL 100ML IV BAG IV PRN ×3 (11:27→21:35)
[2019-07-22] MEDS: MULTIVITAMINS/MINERALS THERAP 1 TAB PO SCH (12:42)
[2019-07-22 13:42] VITALS: BP 128/70
[2019-07-22 22:00] VITALS: BP 162/73
[2019-07-23 02:00] VITALS: BP 141/65
[2019-07-23] MEDS: MORPHINE 1MG/ML IN 0.9% NACL 100ML IV BAG IV PRN ×3 (04:12→17:27)
[2019-07-23 05:58] VITALS: BP 130/59
[2019-07-23 06:39] LABS: BASO % 0.3 % (0.0-1.0); EOS # 0.3 10^3/uL (0.0-0.5); EOS % 4.3 % (0.0-3.0); HEMATOCRIT 27.8 % (42.0-52.0); HEMOGLOBIN 8.9 g/dl (13.5-17.5); LYMPH # 1.3 10^3/uL (1.5-5.0); LYMPH % 22.2 % (24.0-44.0); MEAN CORPUSCULAR VOLUME 96.9 fl (80.0-96.0); MONO # 0.7 10^3/uL (0.0-0.8); MONO % 12.4 % (0.0-5.0); NEUTROPHILS # 3.6 10^3/uL (1.5-8.5); NEUTROPHILS % 59.6 % (36.0-66.0); PLATELET COUNT, AUTOMATED 265 10^3/uL (150-450); RED BLOOD COUNT 2.87 10^6/uL (4.30-6.10)
[2019-07-23 06:57] LABS: BLOOD UREA NITROGEN 12 MG/DL (7-18); CALCIUM LEVEL 8.7 MG/DL (8.5-10.1); CARBON DIOXIDE LEVEL 33 MEQ/L (21-32); CHLORIDE LEVEL 105 MEQ/L (98-107); CREATININE FOR GFR 0.69 MG/DL (0.70-1.30); GLOMERULAR FILTRATION RATE > 60.0 (>60); GLUCOSE, FASTING 101 MG/DL (70-100); POTASSIUM SERUM 3.9 MEQ/L (3.5-5.1); SODIUM LEVEL 140 MEQ/L (136-145)
[2019-07-23] MEDS: MIRALAX *UNIT DOSE* 17GM PACKET PO SCH (09:00)
[2019-07-23] MEDS: MOM 30ML SUSPENSION UDC PO SCH (09:00)
[2019-07-23] MEDS: MULTIVITAMINS/MINERALS THERAP 1 TAB PO SCH (09:58)
[2019-07-23] MEDS: METHADONE 10 MG TAB (S0109) PO SCH (10:00)
[2019-07-23] MEDS: FOLIC ACID 1 MG TAB PO SCH (10:00)
[2019-07-23] MEDS: ENOXAPARIN 30 MG/0.3 ML SYR (J1650) SC SCH ×2 (10:01→20:08)
[2019-07-23] MEDS: NICOTINE 21MG/24HR 1 EA TRANSDERMAL TD SCH (10:01)
[2019-07-23] MEDS: SENOKOT S TAB PO SCH ×2 (10:01→20:07)
[2019-07-23] MEDS: GABAPENTIN 300 MG CAP PO SCH ×4 (10:01→20:07)
[2019-07-23] MEDS: THIAMINE 100 MG TAB PO SCH (10:01)
[2019-07-23] MEDS: ESCITALOPRAM OXALATE 10 MG TAB (LEXAPRO) PO SCH (10:02)
[2019-07-23] MEDS: NS 1,000 ML IV SCH (10:03)
--- NOTE | 2019-07-23 11:25 | IPNPDOC ---
Text Note Date of Service The patient was seen on 07/23/19. NOTE Subjective: Patient was seen and examined at the bedside. Today pain is a little better controlled if he lays still any movement or trying to adjust his position makes the pain unbearable. Denies chest pain, shortness of breath or palpitations. remains on morphine AEROGRAPHER and oral pain meds. Objective: Vitals (See below) General: Lying in bed, AAOx3, crying because of pain. HEENT: NC, AT, moist mucus membranes, anicteric eyes. CVS: RRR, +S1S2, n rub , murmur or gallop Lungs: Fair air entry b/l, -w/r/r Abdomen: Soft, ND, NT Extremities: + Edema in bothe the lower extremities noted in the toes and foot. - Calf tenderness, L LE in dressing ,R LE with external fixator device Assessment and plan: Bilateral lower extremity tib-fib fractures - 2/2 crush injury from [employer] - L LE with dressing in place - R LE with external fixator device present - Discussed with orthopedic surgery; patient will require intervention - current date undetermined; anticipate next week - Currently remains non-weight bearing - Orthopedic surgery on consultation Acute on Chronic Pain - Hx of Opiate dependency; [facility] (Marianne pain nurse at [place] program: [phone]; medical records administrator Dr. Warren) - c/w Methadone at home dose of 145mg daily - [facility] Pain control was for Fentyl AEROGRAPHER; however based on formulary restrictions, will c/w Morphine AEROGRAPHER for now . Dose adjusted on 07/19 Normocytic anemia - likely 2/2 dilutional etiology, less likely 2/2 acute blood loss 2/2 fractures - No evidence of active bleeding - Will continue to monitor Constipation - likely 2/2 opiate use - c/w Bowel regimen as ordered - Will add Lactulose to induce BM; titrated to 1-2 BM daily Alcohol abuse - Intoxicated upon admission - No evidence of withdrawal - c/w Thiamine, Folate and MVI Neuropathy - c/w Gabapentin Mood disorder - c/w Escitalopram DVT prophylaxis - c/w Lovenox Disposition: - Will need definitive innervation of R LE - c/w PT; will need to go to Rehab acute vs subacute after surgery. VS,Fishbone, I+O VS, Fishbone, I+O Laboratory Tests 07/23/19 06:12 Vital Signs Date Time Temp Pulse Resp B/P (MAP) Pulse Ox O2 Delivery O2 Flow Rate FiO2 07/23/19 05:58 98.1 63 18 130/59 (82) 96 Room Air I&O- Last 24 Hours up to 6 AM0 07/23/19 06:00 Intake Total 1800 ml Output Total 1800 ml Balance 0 ml CAIO SMITH MD Jul 23, 2019 11:25
[2019-07-23] MEDS: diphenhydrAMINE INJ 50MG/ML VIAL (J1200) IV PRN (13:18)
[2019-07-23 15:40] VITALS: BP 128/68
[2019-07-23] MEDS ORDERED: diphenhydrAMINE 50 MG CAP PO PRN (21:00)
[2019-07-23 22:00] VITALS: BP 144/70
[2019-07-24] MEDS: MORPHINE 1MG/ML IN 0.9% NACL 100ML IV BAG IV PRN ×4 (00:37→17:35)
[2019-07-24 02:00] VITALS: BP 138/56
[2019-07-24 06:00] VITALS: BP 147/67
[2019-07-24 06:52] LABS: BASO % 0.5 % (0.0-1.0); EOS # 0.3 10^3/uL (0.0-0.5); EOS % 4.8 % (0.0-3.0); HEMATOCRIT 28.8 % (42.0-52.0); HEMOGLOBIN 9.2 g/dl (13.5-17.5); LYMPH # 1.7 10^3/uL (1.5-5.0); LYMPH % 27.7 % (24.0-44.0); MEAN CORPUSCULAR HEMOGLOBIN 31.4 pg (27.0-33.0); MEAN CORPUSCULAR HGB CONC 31.9 g/dl (32.0-36.5); MEAN CORPUSCULAR VOLUME 98.3 fl (80.0-96.0); MONO # 0.7 10^3/uL (0.0-0.8); MONO % 10.9 % (0.0-5.0); NEUTROPHILS # 3.3 10^3/uL (1.5-8.5); NEUTROPHILS % 54.8 % (36.0-66.0); PLATELET COUNT, AUTOMATED 261 10^3/uL (150-450); RED BLOOD COUNT 2.93 10^6/uL (4.30-6.10)
[2019-07-24 07:24] LABS: BLOOD UREA NITROGEN 16 MG/DL (7-18); CALCIUM LEVEL 8.7 MG/DL (8.5-10.1); CARBON DIOXIDE LEVEL 33 MEQ/L (21-32); CHLORIDE LEVEL 104 MEQ/L (98-107); GLOMERULAR FILTRATION RATE > 60.0 (>60); GLUCOSE, FASTING 102 MG/DL (70-100); POTASSIUM SERUM 3.9 MEQ/L (3.5-5.1); SODIUM LEVEL 139 MEQ/L (136-145)
[2019-07-24] MEDS: diphenhydrAMINE INJ 50MG/ML VIAL (J1200) IV PRN ×3 (07:34→21:46)
[2019-07-24] MEDS: ESCITALOPRAM OXALATE 10 MG TAB (LEXAPRO) PO SCH (08:48)
[2019-07-24] MEDS: GABAPENTIN 300 MG CAP PO SCH ×4 (08:48→20:11)
[2019-07-24] MEDS: THIAMINE 100 MG TAB PO SCH (08:48)
[2019-07-24] MEDS: MULTIVITAMINS/MINERALS THERAP 1 TAB PO SCH (08:48)
[2019-07-24] MEDS: FOLIC ACID 1 MG TAB PO SCH (08:48)
[2019-07-24] MEDS: MOM 30ML SUSPENSION UDC PO SCH (08:49)
[2019-07-24] MEDS: MIRALAX *UNIT DOSE* 17GM PACKET PO SCH (08:49)
[2019-07-24] MEDS: NICOTINE 21MG/24HR 1 EA TRANSDERMAL TD SCH (08:49)
[2019-07-24] MEDS: METHADONE 10 MG TAB (S0109) PO SCH (08:49)
[2019-07-24] MEDS: ENOXAPARIN 30 MG/0.3 ML SYR (J1650) SC SCH ×2 (08:49→20:11)
[2019-07-24] MEDS: SENOKOT S TAB PO SCH ×2 (08:50→20:11)
--- NOTE | 2019-07-24 11:07 | IPNPDOC ---
Text Note Date of Service The patient was seen on 07/24/19. NOTE Subjective: Patient was seen and examined at the bedside. Pain is a little b ana controlled if he lays still any movement or trying to adjust his position makes the pain unbearable. Denies chest pain, shortness of breath or palpitations. remains on morphine PRINTED CIRCUIT BOARD PANELS PLATER and oral pain meds. Has been having bowel movements. Has been having difficulty sleeping feels pain is more at night. Objective: Vitals (See below) General: Lying in bed, AAOx3, crying because of pain. HEENT: NC, AT, moist mucus membranes, anicteric eyes. CVS: RRR, +S1S2, n rub , murmur or gallop Lungs: Fair air entry b/l, -w/r/r Abdomen: Soft, ND, NT Extremities: + Edema in bothe the lower extremities noted in the toes and foot. - Calf tenderness, L LE in dressing ,R LE with external fixator device Assessment and plan: Bilateral lower extremity tib-fib fractures - 2/2 crush injury from [employer] - L LE with dressing in place - R LE with external fixator device present - Discussed with orthopedic surgery; patient will require intervention on 07/26/19 on the right leg. - Currently remains non-weight bearing - Orthopedic surgery on consultation Acute on Chronic Pain - Hx of Opiate dependency; has been on Methadone program at [facility] (Marianne pain nurse at [place] program: [phone]; medical doctor nuclear medicine Dr. Warren) - c/w Methadone at home dose of 145mg daily - Recommendations from [facility] Pain control was for Fentyl PRINTED CIRCUIT BOARD PANELS PLATER; however based on formulary restrictions, will c/w Morphine PRINTED CIRCUIT BOARD PANELS PLATER for now . Dose adjusted on 07/19 Normocytic anemia - likely 2/2 dilutional etiology, less likely 2/2 acute blood loss 2/2 fractures - No evidence of active bleeding - Will continue to monitor Constipation - likely 2/2 opiate use - c/w Bowel regimen as ordered Alcohol abuse - Intoxicated upon admission - No evidence of withdrawal - c/w Thiamine, Folate and MVI Neuropathy - c/w Gabapentin Mood disorder - c/w Escitalopram DVT prophylaxis - c/w Lovenox Disposition: - Will need definitive innervation of R LE - c/w PT; will need to go to Rehab acute vs subacute after surgery. VS,Fishbone, I+O VS, Fishbone, I+O Laboratory Tests 07/24/19 06:07 Vital Signs Date Time Temp Pulse Resp B/P (MAP) Pulse Ox O2 Delivery O2 Flow Rate FiO2 07/24/19 06:00 97.3 58 18 147/67 (93) 96 Room Air I&O- Last 24 Hours up to 6 AM 07/24/19 06:00 Intake Total 2360 ml Output Total 1800 ml Balance 560 ml CAIO SMITH MD Jul 24, 2019 06:55
[2019-07-24] MEDS: NS 1,000 ML IV SCH (13:14)
[2019-07-24 14:00] VITALS: BP 144/70
[2019-07-24 22:00] VITALS: BP 147/69
[2019-07-25] VITALS (8 sets, daily range): BP systolic 122–146; BP diastolic 63–79; O2SAT 95
[2019-07-25] MEDS: diphenhydrAMINE INJ 50MG/ML VIAL (J1200) IV PRN ×4 (02:10→21:13)
--- NOTE | 2019-07-25 08:33 | IPNPDOC ---
Text Note Date of Service The patient was seen on 07/25/19. NOTE Subjective: Patient was seen and examined at the bedside. Pain well controlled now. Complains of intermittent itching for which he is on IV benadryl 12,5 . Was asking to increase it however i felt 12.5 is working adequately and 25 will make him to sedated with the amount of morphine he is getting. SO said will not be able to increase it any more. He is also on benadryl 50 mg PO at night for insomnia. He understood this and is OK will it. Having bowel movements. No fever or chills, no chest pain or sob. no cough or phlegm Objective: Vitals (See below) General: Lying in bed, AAOx3, crying because of pain. HEENT: NC, AT, moist mucus membranes, anicteric eyes. CVS: RRR, +S1S2, no rub, murmur or gallop Lungs: Fair air entry b/l, -w/r/r Abdomen: Soft, ND, NT Extremities: + Edema in both the lower extremities noted in the toes and foot. - Calf tenderness, R LE with external fixator device , Left lower ex with surgical incisions with dressings. Assessment and plan: Bilateral lower extremity tib-fib fractures - 2/2 crush injury from [employer] truck Left open fibula and tibia shaft fractures, grade 2, Right open extraarticular pilon fracture and fibula shaft fracture, grade 2. Incision and drainage open tibia and fibula shaft fracture on the left and left intramedullary nailing, left wound negative pressure wound therapy Incision and drainage open tibia and fibula fracture on the right with extr aarticular pilon and right uniplane Ex-Fix Closed management of bilateral fibula fractures. Discussed with orthopedic surgery; patient will require intervention on 07/26/19 on the right leg. Currently remains non-weight bearing Orthopedic surgery on consultation Acute on Chronic Pain Hx of Opiate dependency; has been on Methadone program at [facility] (Marianne pain nurse at [place] program: [phone]; medical billing supervisor Dr. Warren) c/w Methadone at home dose of 145mg daily Recommendations from [facility] Pain control was for Fentyl NETWORK SECURITY ENGINEER; however based on formulary restrictions, will c/w Morphine NETWORK SECURITY ENGINEER for now . Dose adjusted on 07/19. Pain well controlled with current dosage. 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 DVT prophylaxis c/w Lovenox Insomnia and itching benadryl 50 mg at bed time for insomnia benadryl 12.5 iv q4h prn for itching Disposition: - Will need definitive innervation of R LE - will need to go to Rehab acute vs subacute after surgery. VS,Fishbone, I+O VS, Fishbone, I+O Vital Signs Date Time Temp Pulse Resp B/P (MAP) Pulse Ox O2 Delivery O2 Flow Rate FiO2 07/25/19 06:00 97.9 55 18 132/63 (86) 99 Room Air I&O- Last 24 Hours up to 6 AM 07/25/19 06:00 Intake Total 3560 ml Output Total 2500 ml Balance 1060 ml CAIO SMITH MD Jul 25, 2019 08:33
[2019-07-25] MEDS: METHADONE 10 MG TAB (S0109) PO SCH (09:00)
[2019-07-25] MEDS: MIRALAX *UNIT DOSE* 17GM PACKET PO SCH (09:00)
[2019-07-25] MEDS: MOM 30ML SUSPENSION UDC PO SCH (09:00)
[2019-07-25] MEDS: MULTIVITAMINS/MINERALS THERAP 1 TAB PO SCH (09:02)
[2019-07-25] MEDS: FOLIC ACID 1 MG TAB PO SCH (09:02)
[2019-07-25] MEDS: GABAPENTIN 300 MG CAP PO SCH ×4 (09:02→20:25)
[2019-07-25] MEDS: ESCITALOPRAM OXALATE 10 MG TAB (LEXAPRO) PO SCH (09:02)
[2019-07-25] MEDS: THIAMINE 100 MG TAB PO SCH (09:02)
[2019-07-25] MEDS: SENOKOT S TAB PO SCH ×2 (09:02→20:25)
[2019-07-25] MEDS: ENOXAPARIN 30 MG/0.3 ML SYR (J1650) SC SCH ×2 (09:03→20:25)
[2019-07-25] MEDS: NICOTINE 21MG/24HR 1 EA TRANSDERMAL TD SCH (09:03)
[2019-07-25] MEDS: NS 1,000 ML IV SCH (09:05)
[2019-07-25] MEDS: MORPHINE 1MG/ML IN 0.9% NACL 100ML IV BAG IV PRN ×2 (11:05→18:16)
[2019-07-25 11:06] LABS: BASO % 0.6 % (0.0-1.0); EOS # 0.3 10^3/uL (0.0-0.5); EOS % 4.4 % (0.0-3.0); HEMOGLOBIN 9.7 g/dl (13.5-17.5); LYMPH # 1.8 10^3/uL (1.5-5.0); LYMPH % 26.9 % (24.0-44.0); MEAN CORPUSCULAR HEMOGLOBIN 30.7 pg (27.0-33.0); MEAN CORPUSCULAR HGB CONC 32.3 g/dl (32.0-36.5); MEAN CORPUSCULAR VOLUME 94.9 fl (80.0-96.0); MONO # 0.6 10^3/uL (0.0-0.8); MONO % 8.2 % (0.0-5.0); NEUTROPHILS % 58.6 % (36.0-66.0); PLATELET COUNT, AUTOMATED 303 10^3/uL (150-450); RED BLOOD COUNT 3.16 10^6/uL (4.30-6.10); WHITE BLOOD COUNT 6.8 10^3/uL (4.0-10.0)
[2019-07-25 11:26] LABS: BLOOD UREA NITROGEN 12 MG/DL (7-18); CALCIUM LEVEL 8.5 MG/DL (8.5-10.1); CARBON DIOXIDE LEVEL 33 MEQ/L (21-32); CHLORIDE LEVEL 106 MEQ/L (98-107); GLOMERULAR FILTRATION RATE > 60.0 (>60); GLUCOSE, FASTING 95 MG/DL (70-100); POTASSIUM SERUM 4.3 MEQ/L (3.5-5.1); SODIUM LEVEL 141 MEQ/L (136-145)
[2019-07-26] VITALS (9 sets, daily range): BP systolic 121–145; BP diastolic 63–72; O2SAT 96
[2019-07-26] MEDS: diphenhydrAMINE INJ 50MG/ML VIAL (J1200) IV PRN ×2 (02:00→22:11)
[2019-07-26] MEDS: MORPHINE 1MG/ML IN 0.9% NACL 100ML IV BAG IV PRN ×3 (02:15→21:16)
[2019-07-26] MEDS ORDERED: CLINDAMYCIN 600 MG in IV 1 EA IV SCH (06:00)
[2019-07-26 06:25] LABS: BASO % 0.6 % (0.0-1.0); EOS # 0.3 10^3/uL (0.0-0.5); HEMATOCRIT 31.1 % (42.0-52.0); HEMOGLOBIN 10.1 g/dl (13.5-17.5); LYMPH # 2.3 10^3/uL (1.5-5.0); LYMPH % 32.9 % (24.0-44.0); MEAN CORPUSCULAR HEMOGLOBIN 30.6 pg (27.0-33.0); MEAN CORPUSCULAR HGB CONC 32.5 g/dl (32.0-36.5); MEAN CORPUSCULAR VOLUME 94.2 fl (80.0-96.0); MONO # 0.7 10^3/uL (0.0-0.8); MONO % 9.7 % (0.0-5.0); NEUTROPHILS # 3.6 10^3/uL (1.5-8.5); NEUTROPHILS % 51.6 % (36.0-66.0); PLATELET COUNT, AUTOMATED 274 10^3/uL (150-450); WHITE BLOOD COUNT 6.9 10^3/uL (4.0-10.0)
[2019-07-26 06:41] LABS: BLOOD UREA NITROGEN 13 MG/DL (7-18); CALCIUM LEVEL 8.5 MG/DL (8.5-10.1); CARBON DIOXIDE LEVEL 32 MEQ/L (21-32); CHLORIDE LEVEL 106 MEQ/L (98-107); CREATININE FOR GFR 0.82 MG/DL (0.70-1.30); GLOMERULAR FILTRATION RATE > 60.0 (>60); GLUCOSE, FASTING 90 MG/DL (70-100); POTASSIUM SERUM 3.9 MEQ/L (3.5-5.1); SODIUM LEVEL 141 MEQ/L (136-145)
--- NOTE | 2019-07-26 08:39 | IPNPDOC ---
Text Note Date of Service The patient was seen on 07/26/19. NOTE Subjective: Patient was seen and examined at the bedside. Pain well controlled now. Having bowel movements. No fever or chills, no chest pain or sob. No cough or phlegm. Going for OR today. Objective: Vitals (See below) General: Lying in bed, AAOx3, crying because of pain. HEENT: NC, AT, moist mucus membranes, anicteric eyes. CVS: RRR, +S1S2, no rub, murmur or gallop Lungs: Fair air entry b/l, -w/r/r Abdomen: Soft, ND, NT Extremities: + Edema in both the lower extremities noted in the toes and foot. - Calf tenderness, R LE with external fixator device , Left lower ex with surgical incisions with dressings. Assessment and plan: Bilateral lower extremity tib-fib fractures - 2/2 crush injury from [employer] Left open fibula and tibia shaft fractures, grade 2, Right open extraarticular pilon fracture and fibula shaft fracture, grade 2. Incision and drainage open tibia and fibula shaft fracture on the left and left intramedullary nailing, left wound negative pressure wound therapy Incision and drainage open tibia and fibula fracture on the right with ext raarticular pilon and right uniplane Ex-Fix Closed management of bilateral fibula fractures. Surgery on 07/26/19 on the right leg. Currently remains non-weight bearing Acute on Chronic Pain Hx of Opiate dependency; has been on Methadone program at [facility] (Marianne pain nurse at [facility]: [phone]; medical housekeeper Dr. Warren) c/w Methadone at home dose of 145mg daily Recommendations from [facility] Pain control was for Fentyl TRANSPORTATION SOLUTIONS MANAGER; however based on formulary restrictions, will c/w Morphine TRANSPORTATION SOLUTIONS MANAGER for now . Dose adjusted on 07/19. Pain well controlled with current dosage. 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 DVT prophylaxis c/w Lovenox Insomnia and itching benadryl 50 mg at bed time for insomnia benadryl 12.5 iv q4h prn for itching Disposition: will need to go to Rehab acute vs subacute after surgery. VS,Fishbone, I+O VS, Fishbone, I+O Laboratory Tests 07/25/19 10:39 07/26/19 06:15 Vital Signs Date Time Temp Pulse Resp B/P (MAP) Pulse Ox O2 Delivery O2 Flow Rate FiO2 07/26/19 05:03 97.1 59 18 121/64 (83) 98 Room Air I&O- Last 24 Hours up to 6 AM 07/26/19 06:00 Intake Total 2320 ml Output Total 3300 ml Balance -980 ml CAIO SMITH MD Jul 26, 2019 08:39
[2019-07-26] MEDS: MIRALAX *UNIT DOSE* 17GM PACKET PO SCH (09:00)
[2019-07-26] MEDS: MOM 30ML SUSPENSION UDC PO SCH (09:00)
[2019-07-26] MEDS: ENOXAPARIN 30 MG/0.3 ML SYR (J1650) SC SCH (09:00)
[2019-07-26] MEDS: METHADONE 10 MG TAB (S0109) PO SCH (09:15)
[2019-07-26] MEDS: GABAPENTIN 300 MG CAP PO SCH ×4 (09:16→22:40)
[2019-07-26] MEDS: ESCITALOPRAM OXALATE 10 MG TAB (LEXAPRO) PO SCH (09:16)
[2019-07-26] MEDS: THIAMINE 100 MG TAB PO SCH (09:16)
[2019-07-26] MEDS: FOLIC ACID 1 MG TAB PO SCH (09:16)
[2019-07-26] MEDS: MULTIVITAMINS/MINERALS THERAP 1 TAB PO SCH (09:17)
[2019-07-26] MEDS: NICOTINE 21MG/24HR 1 EA TRANSDERMAL TD SCH (09:18)
[2019-07-26] MEDS: SENOKOT S TAB PO SCH ×2 (09:20→22:12)
[2019-07-26] MEDS: NS 1,000 ML IV SCH (09:21)
[2019-07-26] MEDS ORDERED: fentaNYL 100 MCG/2 ML INJECTION (J3010) As Ordered ONE ×3 (14:44→20:24)
[2019-07-26] MEDS ORDERED: MIDAZOLAM INJ 2 MG/2 ML VIAL (J2250) As Ordered ONE ×3 (14:44→16:39)
[2019-07-26] MEDS: MIDAZOLAM INJ 2 MG/2 ML VIAL (J2250) IV PRN ×4 (15:20→15:28)
[2019-07-26] MEDS: fentaNYL 100 MCG/2 ML INJECTION (J3010) IV PRN ×7 (15:20→20:32)
[2019-07-26] MEDS ORDERED: PROPOFOL 200 MG/20 ML VIAL As Ordered ONE (16:39)
[2019-07-26] MEDS ORDERED: fentaNYL 250 MCG/5 ML INJECTION (J3010) As Ordered ONE (16:39)
[2019-07-26] MEDS ORDERED: dexameTHASONE 4 MG/ML 1ML VIAL (J1100) As Ordered ONE (16:39)
[2019-07-26] MEDS ORDERED: LIDOCAINE 2% INJ 100 MG/5 ML SDV (FOR ANES.) As Ordered ONE ×2 (16:39→19:07)
[2019-07-26] MEDS ORDERED: ROCURONIUM BROMIDE 50 MG/5 ML VIAL As Ordered ONE (16:39)
[2019-07-26] MEDS ORDERED: ceFAZolin 2 GM/D5W 50 ML IV BAG (J0690 PER 500MG) As Ordered ONE (16:52)
[2019-07-26] MEDS ORDERED: ONDANSETRON 4MG/2ML VIAL (J2405) As Ordered ONE (17:16)
[2019-07-26] MEDS ORDERED: NEOSTIGMINE 10 MG/10 ML VIAL (J2710) As Ordered ONE (17:17)
[2019-07-26] MEDS ORDERED: GLYCOPYRROLATE INJ 0.2 MG/ML 2 ML VIAL As Ordered ONE (17:17)
[2019-07-26] MEDS ORDERED: ACETAMINOPHEN 1000MG 100ML IV BTL (OFIRMEV) (J0131 PER 10MG) As Ordered ONE (18:08)
[2019-07-26] MEDS ORDERED: DESFLURANE 240 ML INHALANT As Ordered ONE (18:38)
[2019-07-26] MEDS ORDERED: ROPIvacaine 0.5% 30 ML INJECTION (J2795 PER 1MG) ONE (19:02)
[2019-07-26] MEDS ORDERED: LIDOCAINE 1% MDV 20ML VIAL ONE (19:02)
[2019-07-26] MEDS ORDERED: SUGAMMADEX SODIUM 500 MG/5 ML VIAL (BRIDION) As Ordered ONE (19:07)
[2019-07-26] MEDS ORDERED: MORPHINE 2 MG/ML 1ML VIAL (J2270) As Ordered ONE ×4 (19:44→20:41)
[2019-07-26] MEDS: MORPHINE 10 MG/ML 1ML VIAL (J2270) IV PRN ×4 (19:45→20:43)
[2019-07-26] MEDS ORDERED: LR 1,000 ML IV SCH ×2 (20:00→20:45)
[2019-07-26] MEDS ORDERED: ONDANSETRON 4MG/2ML VIAL (J2405) IV PRN ×2 (20:00→20:45)
[2019-07-26] MEDS ORDERED: MORPHINE 10 MG/ML 1ML VIAL (J2270) IV PRN (20:45)
[2019-07-26] MEDS ORDERED: fentaNYL 100 MCG/2 ML INJECTION (J3010) IV PRN (20:45)
[2019-07-26] MEDS ORDERED: MORPHINE 1MG/ML IN 0.9% NACL 100ML IV BAG As Ordered ONE (21:04)
[2019-07-26] MEDS: CLINDAMYCIN 900 MG in IV 1 EA IV SCH (23:48)
[2019-07-27] VITALS (8 sets, daily range): BP systolic 122–139; BP diastolic 60–66; O2SAT 95
[2019-07-27] MEDS: MORPHINE 1MG/ML IN 0.9% NACL 100ML IV BAG IV PRN ×3 (04:59→19:15)
[2019-07-27 06:48] LABS: BASO % 0.1 % (0.0-1.0); HEMOGLOBIN 9.9 g/dl (13.5-17.5); LYMPH # 0.9 10^3/uL (1.5-5.0); LYMPH % 7.4 % (24.0-44.0); MEAN CORPUSCULAR HEMOGLOBIN 30.9 pg (27.0-33.0); MEAN CORPUSCULAR VOLUME 93.8 fl (80.0-96.0); MONO # 0.6 10^3/uL (0.0-0.8); MONO % 5.3 % (0.0-5.0); NEUTROPHILS # 10.3 10^3/uL (1.5-8.5); NEUTROPHILS % 86.3 % (36.0-66.0); PLATELET COUNT, AUTOMATED 312 10^3/uL (150-450); WHITE BLOOD COUNT 11.9 10^3/uL (4.0-10.0)
[2019-07-27 07:18] LABS: BLOOD UREA NITROGEN 14 MG/DL (7-18); CALCIUM LEVEL 8.6 MG/DL (8.5-10.1); CARBON DIOXIDE LEVEL 30 MEQ/L (21-32); CHLORIDE LEVEL 105 MEQ/L (98-107); CREATININE FOR GFR 0.79 MG/DL (0.70-1.30); GLOMERULAR FILTRATION RATE > 60.0 (>60); GLUCOSE, FASTING 147 MG/DL (70-100); SODIUM LEVEL 140 MEQ/L (136-145)
--- NOTE | 2019-07-27 07:58 | REP ---
Right calf series: Eight views. History: Intraoperative imaging. ORIF. 2 minutes 40 seconds of fluoroscopy time is reported. Findings: A sequence of eight last image hold fluoroscopically obtained spot radiographs document open reduction internal fixation of distal tib-fib fractures. Electronically Signed by Adi Gaffney MD 07/27/2019 07:49 A
--- NOTE | 2019-07-27 08:21 | RO ---
DATE OF PROCEDURE: 07/26/2019 PREOPERATIVE DIAGNOSIS: Bilateral open tibia and fibula fractures, left tibial shaft, right pilon. Status post irrigation and debridement of open fractures. Ex-Fix right lower extremity, intramedullary rodding of left. POSTOPERATIVE DIAGNOSIS: Bilateral open tibia and fibula fractures, left tibial shaft, right pilon. Status post irrigation and debridement of open fractures. Ex-Fix right lower extremity, intramedullary rodding of left. PROCEDURE PERFORMED: Open reduction internal fixation of right fibula. Open reduction intramedullary nailing of right tibia. Open fracture debridement of right tibia and Ex-Fix removal. SURGEON: Dr. Nicholas ePrez LUBRICATION EQUIPMENT SERVICER: None. PREOPERATIVE ANTIBIOTICS: 900 mg of clindamycin. COMPLICATIONS: None. ESTIMATED BLOOD LOSS: 200 mL. INDICATIONS: This is a pleasant male who unfortunately suffered bilateral open tibia and fibula fractures. These required irrigation and debridement and stabilization in his first procedure. This is his second procedure for definitive management of his right lower extremity which is an extra-articular pilon fracture and fibula shaft fracture. The patient understood the risks and benefits including but not limited to infection, damage to surrounding structures, malunion and nonunion and wished to proceed. These are not inclusive to all the risks that were discussed. TOURNIQUET TIME: Approximately 2 hours and 15 minutes. OPERATIVE PROCEDURE: The patient was brought back to the operating room (OR) in the supine position at which point he underwent general anesthesia. The right leg including the Ex-Fix was prepped and draped in the usual fashion, at which point, a time out was had confirming site, side and surgery. Once all in agreement, we removed the lateral Ex-Fix bar and using an Esmarch exsanguinated the limb, elevated the tourniquet to 250 mmHg, at which point, we made a longitudinal incision over the fibula fracture. We sharply dissected down anterior to the peroneals encountering the fracture site. This was thoroughly irrigated and debrided, sharply debrided of fracture callous that had developed subsequently, at which point, we directly reduced the fracture and used an 8-hole one third tubular plate to reduce and fixate the fracture. This was confirmed on AP and lateral x-rays for adequate reduction and fixation. We were very happy with this. It also held the tibia out to length. At which point we thoroughly irrigated the wound, closed the peroneal fascia with #2-0 Vicryl, subcutaneous tissue with #2-0 Vicryl and nagi for the skin. At which point, we turned our attention to the Ex-Fix. We removed the remaining portion of the Ex-Fix and sharply irrigated and debrided the skin, subcutaneous tissue and bone using knives, curettes and copious irrigation. Once I was happy with this, we turned our attention to the tibia fracture. We made a longitudinal incision just medial to the tibial crest. We sharply debrided through the tissue, careful to monitor for cutaneous nerves. We then encountered the anterior compartment and tibialis anterior. We made sure to avoid incising the sheath and incised the periosteum on the medial extent. We elevated the anterior compartment laterally. At which point, we encountered the fracture site. We sharply debrided the skin, subcutaneous tissue, muscle and bone over the open fracture and removing multiple devitalized pieces that had been exposed the outside environment from the open fracture. At which point, we made two drill holes in the anterior tibial crest to aid as reduction techniques for point to point reduction. Once we were able to secure reduction, we confirmed on x-ray in AP and lateral. We were very happy with this. We then turned our attention to the incision for the suprapatellar nailing. We made a longitudinal incision proximal to the patella in line with the quad tendon. We sharply debrided through the subcutaneous tissue encountering the quad tendon. We incised in line with the fibers to enter the knee joints. Using large Mayos, we opened multiple adhesions within the knee joint. We then inserted our drill tip guidewire and confirmed our starting point on AP and lateral. Once we were happy with this, we inserted the sleeve and then the opening reamer. At which point, we sent the guidewire down the tibial canal all the way down to the plafond and the physeal scar being sure to be on center-center on AP and lateral views on C-arm and impacted it into the physeal scar as we needed a very distal nail. We measured the nail to be 435 mm and used the 420 mm nail. At which point, we sequentially reamed up to 11.5 using a 10 nail. We impacted the nail all the way down to the tibial plafond making sure to maintain our reduction and that we were in the center-center point of the tibial plafond. After extracting the guidewire we used perfect circles to insert the three most distal cross locks into the distal fragment of the fracture. Once we were happy with that fixation, we turned our attention proximally and inserted the aiming arm and inserted two lateral to medial static interlocks. At this point, we confirmed on AP and lateral the final fixation and fracture reduction. We were exceedingly happy with all of this. At which point, we removed the aiming arm and turned our attention back to the fracture site. Due to the bone loss from the extensive open injury and periosteal stripping, the decision was made to use 10 mL of demineralized bone graft along with 15 mL of crushed cancellous to help fill the gap and decrease the risk of nonunion as indicated in open tibia fractures. Once this was done, we closed the anterior compartment with the periosteum to hold the graft in place at which point we thoroughly irrigated all the wounds and closed the subcutaneous tissue with #2-0 Vicryl. The incision overlying the fracture site was closed with #2-0 nylon. The remaining incisions were closed with nagi. At which point, the wounds were dressed with Adaptic, gauze, sterile Kerlix and Jb. The tourniquet was let down at approximately 2 hours and 15 minutes. The patient was extubated and taken to the postanesthesia care unit (PACU) in stable condition. POSTOPERATIVE PLAN: The patient will undergo skip antibiotics at this point as he has already received multiple days of antibiotics previously after his admission. He will be weight bearing as tolerated for his left lower extremity and touch down weight bearing for his right lower extremity which we just completed today. He will likely need rehabilitation due to his social situation including his previous drug dependence and his current methadone dose along with for his pain control. Also in fact it will be difficult for this young man to ambulate on his own given his multiple extremity injury. He will be on deep vein thrombosis (DVT) prophylaxis with 30 mg of Lovenox twice a day.
[2019-07-27] MEDS: CLINDAMYCIN 900 MG in IV 1 EA IV SCH ×2 (08:47→16:18)
[2019-07-27] MEDS: NICOTINE 21MG/24HR 1 EA TRANSDERMAL TD SCH (08:48)
[2019-07-27] MEDS: SENOKOT S TAB PO SCH ×2 (08:48→20:40)
[2019-07-27] MEDS: MULTIVITAMINS/MINERALS THERAP 1 TAB PO SCH (08:48)
[2019-07-27] MEDS: GABAPENTIN 300 MG CAP PO SCH ×4 (08:48→20:40)
[2019-07-27] MEDS: ESCITALOPRAM OXALATE 10 MG TAB (LEXAPRO) PO SCH (08:49)
[2019-07-27] MEDS: MOM 30ML SUSPENSION UDC PO SCH (08:49)
[2019-07-27] MEDS: FOLIC ACID 1 MG TAB PO SCH (08:49)
[2019-07-27] MEDS: MIRALAX *UNIT DOSE* 17GM PACKET PO SCH (08:49)
[2019-07-27] MEDS: THIAMINE 100 MG TAB PO SCH (08:49)
[2019-07-27] MEDS: METHADONE 10 MG TAB (S0109) PO SCH (08:50)
[2019-07-27] MEDS ORDERED: LIDOCAINE 2% INJ 100 MG/5 ML SDV (FOR ANES.) As Ordered ONE (08:53)
[2019-07-27] MEDS ORDERED: ROCURONIUM BROMIDE 50 MG/5 ML VIAL As Ordered ONE (08:53)
[2019-07-27] MEDS ORDERED: PROPOFOL 200 MG/20 ML VIAL As Ordered ONE (08:53)
[2019-07-27] MEDS ORDERED: fentaNYL 250 MCG/5 ML INJECTION (J3010) As Ordered ONE (08:54)
[2019-07-27] MEDS ORDERED: MIDAZOLAM INJ 2 MG/2 ML VIAL (J2250) As Ordered ONE (08:54)
[2019-07-27] MEDS: ENOXAPARIN 30 MG/0.3 ML SYR (J1650) SC SCH ×2 (10:01→20:41)
[2019-07-27] MEDS: diphenhydrAMINE INJ 50MG/ML VIAL (J1200) IV PRN ×3 (10:02→20:41)
[2019-07-27] MEDS: NS 1,000 ML IV SCH (11:06)
--- NOTE | 2019-07-27 11:41 | IPNPDOC ---
Subjective Date Seen The patient was seen on 07/27/19. 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 Offers no other complaints General: Denies: ROS Unobtainable, Chills, Night Sweats, Fatigue, Malaise, Normal Appetite, Other Symptoms Constitutional: Denies: Chills, Fever, Malaise, Night Sweats, Weakness, Fatigue, Weight Loss, Lethargy, Other Pulmonary: Denies: Dyspnea, Cough, Pleuritic Chest Pain, Other Symptoms Cardiovascular: Denies: Chest Pain, Palpitations, Orthopnea, Paroxysmal Noc. Dyspnea, Edema, Lt Headedness, Other Symptoms Gastrointestinal: Denies: Nausea, Vomiting, Abdominal Pain, Diarrhea, Constipation, Melena, Hematochezia, Other Symptoms Musculoskeletal: Denies: Neck Pain, Back Pain, Shoulder Pain, Arm Pain, Hand Pain, Leg Pain, Foot Pain, Joint Pain, Muscle Pain, Spasms, Other Symptoms Neurological: Denies: Weakness, Numbness, Incoordination, Change in speech, Confusion, Seizures, Other Symptoms Objective Physical Examination General Exam: Positive: Alert, Cooperative Eye Exam: Positive: PERRLA, Conjunctiva & lids normal Chest Exam: Positive: Clear to auscultation, Normal air movement Heart Exam: Positive: Rate Normal, Normal S1, Normal S2 Abdomen Exam: Positive: Normal bowel sounds, Soft, Tenderness Extremity Exam: Positive: Other (cast and a right lower extremity and dressing on left lower activity) Skin Exam: Positive: Nl turgor and temperature Neuro Exam: Positive: Strength at 5/5 X4 ext, Sensation Intact Assessment /Plan Problems (1) Tibia/fibula fracture, shaft Status: Acute Problem Text: Bilateral lower extremity tib-fib fractures - 2/2 crush injury from [employer] truck Left open fibula and tibia shaft fractures, grade 2, Right open extraarticular pilon fracture and fibula shaft fracture, grade 2. , Status post Incision and drainage open tibia and fibula shaft fracture on the left and left intramedullary nailing, left wound negative pressure wound therapy Status post Incision and drainage open tibia and fibula fracture on the right with extraarticular pilon and right uniplane Ex-Fix Status post surgical repair, bilateral tib-fib fracture by Dr. 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 There was no evidence of withdrawal during his stay in the hospital Continue thiamine, folate and multivitamin. (3) Constipation Status: Chronic Problem Text: Patient takes methadone at home The patient most likely secondary to opiates Symptomatic care (4) Peripheral neuropathy Status: Chronic Problem Text: Continue gabapentin (5) Mood disorder Status: Chronic Problem Text: Continue Escitalopram Plan/VTE VTE Prophylaxis Ordered?: Yes VS, I&O, 24H, Fishbone Vital Signs/I&O Vital Signs Date Time Temp Pulse Resp B/P (MAP) Pulse Ox O2 Delivery O2 Flow Rate FiO2 07/27/19 10:00 97.0 60 16 139/66 (90) 98 Room Air 07/27/19 06:00 2.0 I&O- Last 24 Hours up to 6 AM 07/27/19 05:59 Intake Total 2330 ml Output Total 2750 ml Balance -420 ml Laboratory Data 24H LABS Laboratory Tests 2 07/27/19 06:20: Immature Granulocyte % (Auto) 0.9, Neutrophils (%) (Auto) 86.3H, Lymphocytes (%) (Auto) 7.4L, Monocytes (%) (Auto) 5.3H, Eosinophils (%) (Auto) 0.0, Basophils (%) (Auto) 0.1, Neutrophils # (Auto) 10.3H, Lymphocytes # (Auto) 0.9L, Monocytes # (Auto) 0.6, Eosinophils # (Auto) 0.0, Basophils # (Auto) 0.0, Nucleated Red Blood Cells % (auto) 0.0, Anion Gap 5L, Glomerular Filtration Rate > 60.0, Calcium Level 8.6 CBC/BMP Laboratory Tests 07/27/19 06:20 RHEA HYMAN MD Jul 27, 2019 11:41
[2019-07-27] MEDS ORDERED: LIDOCAINE 1% MDV 20ML VIAL As Ordered ONE (16:53)
[2019-07-28] VITALS (7 sets, daily range): BP systolic 129–152; BP diastolic 62–81; O2SAT 96
[2019-07-28] MEDS: MORPHINE 1MG/ML IN 0.9% NACL 100ML IV BAG IV PRN ×4 (00:10→16:41)
[2019-07-28] MEDS: diphenhydrAMINE INJ 50MG/ML VIAL (J1200) IV PRN ×4 (02:02→20:19)
[2019-07-28 06:15] LABS: BASO % 0.4 % (0.0-1.0); EOS # 0.1 10^3/uL (0.0-0.5); EOS % 1.1 % (0.0-3.0); HEMATOCRIT 29.9 % (42.0-52.0); HEMOGLOBIN 9.5 g/dl (13.5-17.5); LYMPH # 2.2 10^3/uL (1.5-5.0); LYMPH % 23.7 % (24.0-44.0); MEAN CORPUSCULAR HGB CONC 31.8 g/dl (32.0-36.5); MEAN CORPUSCULAR VOLUME 94.3 fl (80.0-96.0); MONO # 0.7 10^3/uL (0.0-0.8); MONO % 7.5 % (0.0-5.0); NEUTROPHILS # 6.3 10^3/uL (1.5-8.5); NEUTROPHILS % 66.9 % (36.0-66.0); PLATELET COUNT, AUTOMATED 309 10^3/uL (150-450); RED BLOOD COUNT 3.17 10^6/uL (4.30-6.10); WHITE BLOOD COUNT 9.4 10^3/uL (4.0-10.0)
[2019-07-28 06:44] LABS: ALBUMIN 2.7 GM/DL (3.2-5.2); ALT/SGPT 30 U/L (12-78); BILIRUBIN,TOTAL 0.3 MG/DL (0.2-1.0); BLOOD UREA NITROGEN 15 MG/DL (7-18); CALCIUM LEVEL 8.7 MG/DL (8.5-10.1); CARBON DIOXIDE LEVEL 30 MEQ/L (21-32); CHLORIDE LEVEL 108 MEQ/L (98-107); CREATININE FOR GFR 0.85 MG/DL (0.70-1.30); GLOMERULAR FILTRATION RATE > 60.0 (>60); GLUCOSE, FASTING 102 MG/DL (70-100); POTASSIUM SERUM 3.7 MEQ/L (3.5-5.1); SODIUM LEVEL 142 MEQ/L (136-145); TOTAL PROTEIN 6.1 GM/DL (6.4-8.2)
[2019-07-28] MEDS: MIRALAX *UNIT DOSE* 17GM PACKET PO SCH (09:00)
[2019-07-28] MEDS: MOM 30ML SUSPENSION UDC PO SCH (09:00)
[2019-07-28] MEDS: SENOKOT S TAB PO SCH ×2 (09:00→20:21)
[2019-07-28] MEDS: ENOXAPARIN 30 MG/0.3 ML SYR (J1650) SC SCH ×2 (09:07→20:20)
[2019-07-28] MEDS: GABAPENTIN 300 MG CAP PO SCH ×4 (09:08→20:19)
[2019-07-28] MEDS: NICOTINE 21MG/24HR 1 EA TRANSDERMAL TD SCH (09:08)
[2019-07-28] MEDS: FOLIC ACID 1 MG TAB PO SCH (09:08)
[2019-07-28] MEDS: THIAMINE 100 MG TAB PO SCH (09:08)
[2019-07-28] MEDS: ESCITALOPRAM OXALATE 10 MG TAB (LEXAPRO) PO SCH (09:08)
[2019-07-28] MEDS: MULTIVITAMINS/MINERALS THERAP 1 TAB PO SCH (09:08)
[2019-07-28] MEDS: METHADONE 10 MG TAB (S0109) PO SCH (09:10)
--- NOTE | 2019-07-28 11:16 | REP ---
MIDLINE CATHETER INSERTION WITH SITE GEOMack The procedure was performed under the direct supervision of Dr. Noel. The risks and benefits of the procedure were explained to the patient and informed consent was obtained. The right basilic vein was localized using ultrasound guidance. The skin was prepped and draped in a sterile fashion. 1% lidocaine was used as a local anesthetic. Using ultrasound guidance the basilic vein was cannulated and a 0.018 guidewire was inserted. The needle was removed and a 5.5 Macedonian dilator and peel-away sheath was inserted over the guide wire. A 5.5 Macedonian dual lumen catheter was left at a length of 16.5 cm. The dilator was removed and the catheter was inserted over the guide wire. The peel-away sheath was removed and the catheter was flushed with heparinized saline as per Hospital protocol. The catheter was affixed to the skin and a sterile dressing was applied. The patient tolerated the procedure well and there were no immediate complications. Electronically Signed by XOCHITL Mckenzie 07/27/2019 05:47 P Electronically Signed by Cirilo Noel MD 07/28/2019 11:07 A
--- NOTE | 2019-07-28 11:32 | IPNPDOC ---
Subjective Date Seen The patient was seen on 07/28/19. Subjective Chief Complaint/HPI As per patient, he hasn't slept very well and is still unable to move his legs. Patient has been refusing to participate in physical therapy and also has refused to taper off ICT TRAINER morphine to oral medications. General: Denies: ROS Unobtainable, Chills, Night Sweats, Fatigue, Malaise, Normal Appetite, Other Symptoms Constitutional: Denies: Chills, Fever, Malaise, Night Sweats, Weakness, Fatigue, Weight Loss, Lethargy, Other Eyes: Denies: Pain, Vision change, Conjunctivae inflammation, Eyelid inflammation, Redness, Other ENT: Denies: Head Aches, Ear Pain, Dysphagia, Sinus Congestion, Post Nasal Drip, Sore Throat, Epistaxis, Other Symptoms Pulmonary: Denies: Dyspnea, Cough Cardiovascular: Denies: Chest Pain, Palpitations, Orthopnea, Paroxysmal Noc. Dyspnea, Edema, Lt Headedness, Other Symptoms Hematologic: Denies: Bruising, Bleeding Excessively, Petecchia, Purpura, Enlarged Lymph Nodes, Other Hematologic Endocrine: Denies: Polydipsia, Polyphagia, Polyuria, Heat Intolerance, Cold Intolerance, Other Endocrine Sx Musculoskeletal: Reports: Leg Pain Neurological: Denies: Weakness, Numbness, Incoordination, Change in speech, Confusion, Seizures, Other Symptoms Objective Physical Examination General Exam: Positive: Alert, Cooperative Eye Exam: Positive: PERRLA, Conjunctiva & lids normal Chest Exam: Positive: Clear to auscultation, Normal air movement Heart Exam: Positive: Rate Normal, Normal S1, Normal S2 Abdomen Exam: Positive: Normal bowel sounds, Soft, Tenderness Extremity Exam: Positive: Other (cast and a right lower extremity and dressing on left lower activity) Skin Exam: Positive: Nl turgor and temperature Neuro Exam: Positive: Strength at 5/5 X4 ext, Sensation Intact Assessment /Plan Problems (1) Tibia/fibula fracture, shaft Status: Acute Problem Text: Bilateral lower extremity tib-fib fractures - 2/2 crush injury from [employer] truck Left open fibula and tibia shaft fractures, grade 2, Right open extraarticular pilon fracture and fibula shaft fracture, grade 2. , Status post Incision and drainage open tibia and fibula shaft fracture on the left and left intramedullary nailing, left wound negative pressure wound therapy Status post Incision and drainage open tibia and fibula fracture on the right w ith extraarticular pilon and right uniplane Ex-Fix Status post surgical repair, bilateral tib-fib fracture by Dr. Perez, postop day #2 On a morphine ICT TRAINER for pain I had long discussion with patient regarding tapering off in converting morphine ICT TRAINER to by mouth meds for his pain control but he has so far resisted any effort to stop morphine ICT TRAINER Patient also has refused to cooperate with physical therapy for ambulation secondary to pain Pain management consult has been requested and will await their input All risks of not participating in physical therapy for explained to patient including DVT, PE, a cube ulcers, fevers, pneumonia and other complications of bed bound status (2) Alcohol abuse Status: Acute Problem Text: Patient presented with alcohol intoxication on admission There was no evidence of withdrawal during his stay in the hospital Continue thiamine, folate and multivitamin. (3) Constipation Status: Chronic Problem Text: Patient takes methadone at home The patient most likely secondary to opiates Symptomatic care (4) Peripheral neuropathy Status: Chronic Problem Text: Continue gabapentin (5) Mood disorder Status: Chronic Problem Text: Continue Escitalopram Plan/VTE VTE Prophylaxis Ordered?: Yes VS, I&O, 24H, Fishbone Vital Signs/I&O Vital Signs Date Time Temp Pulse Resp B/P (MAP) Pulse Ox O2 Delivery O2 Flow Rate FiO2 07/28/19 06:00 98.1 57 14 152/78 (102) 96 Room Air 07/27/19 16:50 98 07/27/19 06:00 2.0 I&O- Last 24 Hours up to 6 AM 07/28/19 06:00 Intake Total 1665 ml Output Total 375 ml Balance 1290 ml Laboratory Data 24H LABS Laboratory Tests 2 07/28/19 05:19: Immature Granulocyte % (Auto) 0.4, Neutrophils (%) (Auto) 66.9H, Lymphocytes (%) (Auto) 23.7L, Monocytes (%) (Auto) 7.5H, Eosinophils (%) (Auto) 1.1, Basophils (%) (Auto) 0.4, Neutrophils # (Auto) 6.3, Lymphocytes # (Auto) 2.2, Monocytes # (Auto) 0.7, Eosinophils # (Auto) 0.1, Basophils # (Auto) 0.0, Nucleated Red Blood Cells % (auto) 0.0, Anion Gap 4L, Glomerular Filtration Rate > 60.0, Antoni cium Level 8.7, Total Bilirubin 0.3, Aspartate Amino Transf (AST/SGOT) 17, Alanine Aminotransferase (ALT/SGPT) 30, Alkaline Phosphatase 65, Total Protein 6.1L, Albumin 2.7L, Albumin/Globulin Ratio 0.79L CBC/BMP Laboratory Tests 07/28/19 05:19 RHEA HYMAN MD Jul 28, 2019 11:32
[2019-07-29 00:30] VITALS: BP 126/62
[2019-07-29] MEDS: diphenhydrAMINE INJ 50MG/ML VIAL (J1200) IV PRN ×5 (00:57→22:45)
[2019-07-29] MEDS: MORPHINE 1MG/ML IN 0.9% NACL 100ML IV BAG IV PRN ×4 (00:57→19:46)
[2019-07-29] MEDS: NS 1,000 ML IV SCH ×2 (02:30→06:43)
[2019-07-29 05:35] VITALS: BP 127/65
[2019-07-29] MEDS: THIAMINE 100 MG TAB PO SCH (09:58)
[2019-07-29] MEDS: ESCITALOPRAM OXALATE 10 MG TAB (LEXAPRO) PO SCH (09:58)
[2019-07-29] MEDS: ENOXAPARIN 30 MG/0.3 ML SYR (J1650) SC SCH ×2 (09:58→21:14)
[2019-07-29] MEDS: MULTIVITAMINS/MINERALS THERAP 1 TAB PO SCH (09:58)
[2019-07-29] MEDS: NICOTINE 21MG/24HR 1 EA TRANSDERMAL TD SCH (09:58)
[2019-07-29] MEDS: SENOKOT S TAB PO SCH ×2 (09:59→21:14)
[2019-07-29] MEDS: MIRALAX *UNIT DOSE* 17GM PACKET PO SCH (10:00)
[2019-07-29] MEDS: MOM 30ML SUSPENSION UDC PO SCH (10:00)
[2019-07-29] MEDS: GABAPENTIN 300 MG CAP PO SCH ×4 (10:00→21:14)
[2019-07-29] MEDS: FOLIC ACID 1 MG TAB PO SCH (10:00)
[2019-07-29] MEDS: METHADONE 10 MG TAB (S0109) PO SCH (10:02)
[2019-07-29 10:11] VITALS: BP 126/65
--- NOTE | 2019-07-29 10:51 | IPNPDOC ---
Subjective Date Seen The patient was seen on 07/29/19. 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 Dyspnea, Edema, Lt Headedness, Other Symptoms Gastrointestinal: Denies: Nausea, Vomiting, Abdominal Pain, Diarrhea, Constipation, Melena, Hematochezia, Other Symptoms Musculoskeletal: Denies: Neck Pain, Back Pain, Shoulder Pain, Arm Pain, Hand Pain, Leg Pain, Foot Pain, Joint Pain, Muscle Pain, Spasms, Other Symptoms Neurological: Denies: Weakness, Numbness, Incoordination, Change in speech, Confusion, Seizures, Other Symptoms Objective Physical Examination General Exam: Positive: Alert, Cooperative Eye Exam: Positive: PERRLA, Conjunctiva & lids normal Chest Exam: Positive: Clear to auscultation, Normal air movement Heart Exam: Positive: Rate Normal, Normal S1, Normal S2 Abdomen Exam: Positive: Normal bowel sounds, Soft, Tenderness Extremity Exam: Positive: Other (cast and a right lower extremity and dressing on left lower activity) Skin Exam: Positive: Nl turgor and temperature Neuro Exam: Positive: Strength at 5/5 X4 ext, Sensation Intact Assessment /Plan Problems (1) Tibia/fibula fracture, shaft Status: Acute Problem Text: Bilateral lower extremity tib-fib fractures - 2/2 crush injury from [employer] Left open fibula and tibia shaft fractures, grade 2, Right open extraarticular pilon fracture and fibula shaft fracture, grade 2. , Status post Incision and drainage open tibia and fibula shaft fracture on the left and left intramedullary nailing, left wound negative pressure wound therapy Status post Incision and drainage open tibia and fibula fracture on the right with extraarticular pilon and right uniplane Ex-Fix Status post surgical repair, bilateral tib-fib fracture by Dr. Perez, postop day #2 On a morphine REIMBURSEMENT ANALYST for pain I had long discussion with patient regarding tapering off in converting morphine REIMBURSEMENT ANALYST to by mouth meds for his pain control but he has so far resisted any effort to stop morphine REIMBURSEMENT ANALYST Patient today tried to get out of bed and he was sitting by the bedside He is somewhat agreeing to participate in physical therapy. If his pain is under control Pain management consult was called and he'll be seen today for further recommendations of morphine REIMBURSEMENT ANALYST (2) Alcohol abuse Status: Acute Problem Text: Patient presented with alcohol intoxication on admission There was no evidence of withdrawal during his stay in the hospital Continue thiamine, folate and multivitamin. (3) Constipation Status: Chronic Problem Text: Patient takes methadone at home The patient most likely secondary to opiates Symptomatic care (4) Peripheral neuropathy Status: Chronic Problem Text: Continue gabapentin (5) Mood disorder Status: Chronic Problem Text: Continue Escitalopram Plan/VTE VTE Prophylaxis Ordered?: Yes VS, I&O, 24H, Fishbone Vital Signs/I&O Vital Signs Date Time Temp Pulse Resp B/P (MAP) Pulse Ox O2 Delivery O2 Flow Rate FiO2 07/29/19 10:11 98.0 66 20 126/65 (85) 95 07/29/19 05:35 Room Air 07/27/19 16:50 98 07/27/19 06:00 2.0 I&O- Last 24 Hours up to 6 AM 07/29/19 06:00 Intake Total 550 ml Output Total 3635 ml Balance -3085 ml RHEA HYMAN MD Jul 29, 2019 10:51
[2019-07-29 14:59] VITALS: BP 125/66
[2019-07-29 20:08] VITALS: BP 125/65
[2019-07-29] MEDS: SODIUM CHLORIDE 0.9% INJ 10 ML SYR IV PRN (22:45)
[2019-07-30] MEDS: MORPHINE 1MG/ML IN 0.9% NACL 100ML IV BAG IV PRN ×4 (01:55→21:51)
[2019-07-30] MEDS: diphenhydrAMINE INJ 50MG/ML VIAL (J1200) IV PRN ×5 (02:42→23:06)
[2019-07-30 05:43] VITALS: BP 128/67
[2019-07-30] MEDS: SODIUM CHLORIDE 0.9% INJ 10 ML SYR IV SCH ×2 (05:54→18:00)
[2019-07-30] MEDS ORDERED: diphenhydrAMINE INJ 50MG/ML VIAL (J1200) IV PRN (08:00)
[2019-07-30] MEDS: MOM 30ML SUSPENSION UDC PO SCH (09:00)
[2019-07-30] MEDS: MIRALAX *UNIT DOSE* 17GM PACKET PO SCH (09:00)
[2019-07-30] MEDS: METHADONE 10 MG TAB (S0109) PO SCH (09:04)
[2019-07-30] MEDS: FOLIC ACID 1 MG TAB PO SCH (09:05)
[2019-07-30] MEDS: NICOTINE 21MG/24HR 1 EA TRANSDERMAL TD SCH (09:05)
[2019-07-30] MEDS: ESCITALOPRAM OXALATE 10 MG TAB (LEXAPRO) PO SCH (09:05)
[2019-07-30] MEDS: GABAPENTIN 300 MG CAP PO SCH ×4 (09:06→23:06)
[2019-07-30] MEDS: ENOXAPARIN 30 MG/0.3 ML SYR (J1650) SC SCH ×2 (09:06→20:42)
[2019-07-30] MEDS: MULTIVITAMINS/MINERALS THERAP 1 TAB PO SCH (09:06)
[2019-07-30] MEDS: SENOKOT S TAB PO SCH ×3 (09:08→20:43)
[2019-07-30] MEDS: THIAMINE 100 MG TAB PO SCH (09:09)
[2019-07-30] MEDS: SODIUM CHLORIDE 0.9% INJ 10 ML SYR IV PRN ×2 (09:22→13:45)
[2019-07-30 09:55] VITALS: BP 127/67
--- NOTE | 2019-07-30 11:01 | IPNPDOC ---
Subjective Date Seen The patient was seen on 07/30/19. Subjective Chief Complaint/HPI Patient is trying to participate in physical therapy. Despite complaining of a lot of pain in his right leg, pain management consult is still pending General: Denies: ROS Unobtainable, Chills, Night Sweats, Fatigue, Malaise, Normal Appetite, Other Symptoms Constitutional: Denies: Chills, Fever, Malaise, Night Sweats, Weakness, Fatigue, Weight Loss, Lethargy, Other Pulmonary: Denies: Dyspnea, Cough, Pleuritic Chest Pain, Other Symptoms Cardiovascular: Denies: Chest Pain, Palpitations, Orthopnea, Paroxysmal Noc. Dyspnea, Edema, Lt Headedness, Other Symptoms Gastrointestinal: Denies: Nausea, Vomiting, Abdominal Pain, Diarrhea, Constipation, Melena, Hematochezia, Other Symptoms Endocrine: Denies: Polydipsia, Polyphagia, Polyuria, Heat Intolerance, Cold Intolerance, Other Endocrine Sx Musculoskeletal: Reports: Leg Pain Neurological: Denies: Weakness, Numbness, Incoordination, Change in speech, Confusion, Seizures, Other Symptoms Psych: Denies: Mood Normal, Anxiety, Depression, Memory Issues, Thoughts of Self Harm, Anger, Thoughts of Harming Other, Other Psych Objective Physical Examination General Exam: Positive: Alert, Cooperative Eye Exam: Positive: PERRLA, Conjunctiva & lids normal Chest Exam: Positive: Clear to auscultation, Normal air movement Heart Exam: Positive: Rate Normal, Normal S1, Normal S2 Abdomen Exam: Positive: Normal bowel sounds, Soft, Tenderness Extremity Exam: Positive: Other (cast and a right lower extremity and dressing on left lower activity) Skin Exam: Positive: Nl turgor and temperature Neuro Exam: Positive: Strength at 5/5 X4 ext, Sensation Intact Assessment /Plan Problems (1) Tibia/fibula fracture, shaft Status: Acute Problem Text: Bilateral lower extremity tib-fib fractures - 2/2 crush injury from [employer] truck Left open fibula and tibia shaft fractures, grade 2, Right open extraarticular pilon fracture and fibula shaft fracture, grade 2. , Status post Incision and drainage open tibia and fibula shaft fracture on the left and left intramedullary nailing, left wound negative pressure wound therapy Status post Incision and drainage open tibia and fibula fracture on the right with extraarticular pilon and right uniplane Ex-Fix Status post surgical repair, bilateral tib-fib fracture by Dr. Perez, postop day #2 On a morphine DRY CLEANER for pain I had long discussion with patient regarding tapering off in converting morphine DRY CLEANER to by mouth meds for his pain control but he has so far resisted any effort to stop morphine DRY CLEANER Patient today tried to get out of bed and he was sitting by the bedside Patient is trying to participate in physical therapy but still complains of a lot of pain in his right leg Pain management consult was requested and is still pending. Hopefully will be seen today and will follow up their recommendations (2) Alcohol abuse Status: Acute Problem Text: Patient presented with alcohol intoxication on admission There was no evidence of withdrawal during his stay in the hospital Continue thiamine, folate and multivitamin. (3) Constipation Status: Chronic Problem Text: Patient takes methadone at home The patient most likely secondary to opiates Symptomatic care (4) Peripheral neuropathy Status: Chronic Problem Text: Continue gabapentin (5) Mood disorder Status: Chronic Problem Text: Continue Escitalopram Plan/VTE VTE Prophylaxis Ordered?: Yes VS, I&O, 24H, Fishbone Vital Signs/I&O Vital Signs Date Time Temp Pulse Resp B/P (MAP) Pulse Ox O2 Delivery O2 Flow Rate FiO2 07/30/19 08:00 20 Room Air 07/30/19 05:43 96.8 68 128/67 (87) 98 07/27/19 16:50 98 07/27/19 06:00 2.0 I&O- Last 24 Hours up to 6 AM 07/30/19 06:00 Intake Total 2160 ml Output Total 2450 ml Balance -290 ml RHEA HYMAN MD Jul 30, 2019 11:01
[2019-07-30 14:54] VITALS: BP 129/68
[2019-07-30 20:00] VITALS: BP 129/66
[2019-07-31] MEDS: diphenhydrAMINE INJ 50MG/ML VIAL (J1200) IV PRN ×5 (05:00→23:20)
[2019-07-31] MEDS: SODIUM CHLORIDE 0.9% INJ 10 ML SYR IV SCH ×2 (05:00→17:32)
[2019-07-31] MEDS: MORPHINE 1MG/ML IN 0.9% NACL 100ML IV BAG IV PRN ×3 (06:37→23:20)
[2019-07-31 06:48] VITALS: BP 126/66
[2019-07-31] MEDS: MOM 30ML SUSPENSION UDC PO SCH (09:00)
[2019-07-31] MEDS: MIRALAX *UNIT DOSE* 17GM PACKET PO SCH (09:00)
[2019-07-31] MEDS: SENOKOT S TAB PO SCH ×2 (09:57→20:54)
[2019-07-31] MEDS: FOLIC ACID 1 MG TAB PO SCH (09:57)
[2019-07-31] MEDS: THIAMINE 100 MG TAB PO SCH (09:57)
[2019-07-31] MEDS: GABAPENTIN 300 MG CAP PO SCH ×4 (09:57→20:54)
[2019-07-31] MEDS: ESCITALOPRAM OXALATE 10 MG TAB (LEXAPRO) PO SCH (09:57)
[2019-07-31] MEDS: MULTIVITAMINS/MINERALS THERAP 1 TAB PO SCH (09:57)
[2019-07-31] MEDS: ENOXAPARIN 30 MG/0.3 ML SYR (J1650) SC SCH ×2 (09:58→20:54)
[2019-07-31] MEDS: NICOTINE 21MG/24HR 1 EA TRANSDERMAL TD SCH (09:59)
[2019-07-31 10:00] VITALS: BP 126/66
[2019-07-31] MEDS: METHADONE 10 MG TAB (S0109) PO SCH (10:00)
[2019-07-31] MEDS: NS 1,000 ML IV SCH (11:06)
--- NOTE | 2019-07-31 11:09 | IPNPDOC ---
Subjective Date Seen The patient was seen on 07/31/19. Subjective Chief Complaint/HPI Patient tried to get out of bed. He is using the bedside commode and tried to participate in physical therapy but he is feeling very fatigued today, pain management consult is still awaited General: Denies: ROS Unobtainable, Chills, Night Sweats, Fatigue, Malaise, Normal Appetite, Other Symptoms Constitutional: Denies: Chills, Fever, Malaise, Night Sweats, Weakness, Fatigue, Weight Loss, Lethargy, Other Eyes: Denies: Pain, Vision change, Conjunctivae inflammation, Eyelid inflammation, Redness, Other ENT: Denies: Head Aches, Ear Pain, Dysphagia, Sinus Congestion, Post Nasal Drip, Sore Throat, Epistaxis, Other Symptoms Skin: Denies: Rash, Lesions, Jaundice, Bruising, Itching, Dry, Breakdown, Nail Changes, Other Pulmonary: Denies: Dyspnea, Cough, Pleuritic Chest Pain, Other Symptoms Cardiovascular: Denies: Chest Pain, Palpitations, Orthopnea, Paroxysmal Noc. Dyspnea, Edema, Lt Headedness, Other Symptoms Gastrointestinal: Denies: Nausea, Vomiting, Abdominal Pain, Diarrhea, Constipation, Melena, Hematochezia, Other Symptoms Musculoskeletal: Denies: Neck Pain, Back Pain, Shoulder Pain, Arm Pain, Hand Pain, Leg Pain, Foot Pain, Joint Pain, Muscle Pain, Spasms, Other Symptoms Neurological: Denies: Weakness, Numbness, Incoordination, Change in speech, Confusion, Seizures, Other Symptoms Objective Physical Examination General Exam: Positive: Alert, Cooperative Eye Exam: Positive: PERRLA, Conjunctiva & lids normal Chest Exam: Positive: Clear to auscultation, Normal air movement Heart Exam: Positive: Rate Normal, Normal S1, Normal S2 Abdomen Exam: Positive: Normal bowel sounds, Soft, Tenderness Extremity Exam: Positive: Other (cast and a right lower extremity and dressing on left lower activity) Skin Exam: Positive: Nl turgor and temperature Neuro Exam: Positive: Strength at 5/5 X4 ext, Sensation Intact Assessment /Plan Problems (1) Tibia/fibula fracture, shaft Status: Acute Problem Text: Bilateral lower extremity tib-fib fractures - 2/2 crush injury from [employer] truck Left open fibula and tibia shaft fractures, grade 2, Right open extraarticular pilon fracture and fibula shaft fracture, grade 2. , Status post Incision and drainage open tibia and fibula shaft fracture on the left and left intramedullary nailing, left wound negative pressure wound therapy Status post Incision and drainage open tibia and fibula fracture on the right with extraarticular pilon and right uniplane Ex-Fix Status post surgical repair, bilateral tib-fib fracture by Dr. Perez, I had long discussion with patient regarding tapering off in converting morphine CLAIMS AUDITOR to by mouth meds for his pain control but he has so far resisted any effort to stop morphine CLAIMS AUDITOR Patient trying to participate with physical therapy now minimal at best and today he is complaining that he is tired and cannot do anymore physical therapy Pain management consult is still pending. Continue morphine CLAIMS AUDITOR. In the meantime (2) Alcohol abuse Status: Acute Problem Text: Patient presented with alcohol intoxication on admission There was no evidence of withdrawal during his stay in the hospital Continue thiamine, folate and multivitamin. (3) Constipation Status: Chronic Problem Text: Patient takes methadone at home The patient most likely secondary to opiates Symptomatic care (4) Peripheral neuropathy Status: Chronic Problem Text: Continue gabapentin (5) Mood disorder Status: Chronic Problem Text: Continue Escitalopram Plan/VTE VTE Prophylaxis Ordered?: Yes VS, I&O, 24H, Fishbone Vital Signs/I&O Vital Signs Date Time Temp Pulse Resp B/P (MAP) Pulse Ox O2 Delivery O2 Flow Rate FiO2 07/31/19 10:00 98.6 66 18 126/66 (86) 97 Room Air 07/27/19 16:50 98 07/27/19 06:00 2.0 I&O- Last 24 Hours up to 6 AM 07/31/19 05:59 Intake Total 1740 ml Output Total 850 ml Balance 890 ml RHEA HYMAN MD Jul 31, 2019 11:09
[2019-07-31 14:00] VITALS: BP 120/65
[2019-07-31 18:00] VITALS: BP 117/76
[2019-07-31 19:35] VITALS: BP 123/72
[2019-07-31] MEDS: SODIUM CHLORIDE 0.9% INJ 10 ML SYR IV PRN (23:20)
[2019-08-01] MEDS: SODIUM CHLORIDE 0.9% INJ 10 ML SYR IV PRN (03:05)
[2019-08-01] MEDS: diphenhydrAMINE INJ 50MG/ML VIAL (J1200) IV PRN ×5 (03:05→22:07)
[2019-08-01 05:00] VITALS: BP 121/56
[2019-08-01] MEDS: SODIUM CHLORIDE 0.9% INJ 10 ML SYR IV SCH ×2 (05:17→17:34)
[2019-08-01] MEDS: MORPHINE 1MG/ML IN 0.9% NACL 100ML IV BAG IV PRN ×2 (08:14→16:40)
[2019-08-01] MEDS: MOM 30ML SUSPENSION UDC PO SCH (09:00)
[2019-08-01] MEDS: NICOTINE 21MG/24HR 1 EA TRANSDERMAL TD SCH (09:00)
[2019-08-01] MEDS: MIRALAX *UNIT DOSE* 17GM PACKET PO SCH (09:00)
[2019-08-01] MEDS: GABAPENTIN 300 MG CAP PO SCH ×4 (09:01→20:25)
[2019-08-01] MEDS: MULTIVITAMINS/MINERALS THERAP 1 TAB PO SCH (09:01)
[2019-08-01] MEDS: ESCITALOPRAM OXALATE 10 MG TAB (LEXAPRO) PO SCH (09:01)
[2019-08-01] MEDS: THIAMINE 100 MG TAB PO SCH (09:01)
[2019-08-01] MEDS: FOLIC ACID 1 MG TAB PO SCH (09:02)
[2019-08-01] MEDS: SENOKOT S TAB PO SCH ×2 (09:02→20:24)
[2019-08-01] MEDS: METHADONE 10 MG TAB (S0109) PO SCH (09:02)
[2019-08-01] MEDS: ENOXAPARIN 30 MG/0.3 ML SYR (J1650) SC SCH ×2 (09:03→20:25)
--- NOTE | 2019-08-01 09:17 | IPNPDOC ---
Subjective Date Seen The patient was seen on 08/01/19. Subjective Chief Complaint/HPI Patient is comfortable stable in no apparent distress did not participate much with physical therapy yesterday, but is planning to do it today General: Denies: ROS Unobtainable, Chills, Night Sweats, Fatigue, Malaise, Normal Appetite, Other Symptoms Constitutional: Denies: Chills, Fever, Malaise, Night Sweats, Weakness, Fatigue, Weight Loss, Lethargy, Other Pulmonary: Denies: Dyspnea, Cough, Pleuritic Chest Pain, Other Symptoms Cardiovascular: Denies: Chest Pain, Palpitations, Orthopnea, Paroxysmal Noc. Dyspnea, Edema, Lt Headedness, Other Symptoms Gastrointestinal: Denies: Nausea, Vomiting, Abdominal Pain, Diarrhea, Consti pation, Melena, Hematochezia, Other Symptoms Musculoskeletal: Denies: Neck Pain, Back Pain, Shoulder Pain, Arm Pain, Hand Pain, Leg Pain, Foot Pain, Joint Pain, Muscle Pain, Spasms, Other Symptoms Neurological: Denies: Weakness, Numbness, Incoordination, Change in speech, Confusion, Seizures, Other Symptoms Psych: Denies: Mood Normal, Anxiety, Depression, Memory Issues, Thoughts of Self Harm, Anger, Thoughts of Harming Other, Other Psych Objective Physical Examination General Exam: Positive: Alert, Cooperative Eye Exam: Positive: PERRLA, Conjunctiva & lids normal Chest Exam: Positive: Clear to auscultation, Normal air movement Heart Exam: Positive: Rate Normal, Normal S1, Normal S2 Abdomen Exam: Positive: Normal bowel sounds, Soft, Tenderness Extremity Exam: Positive: Other (cast and a right lower extremity and dressing on left lower activity) Skin Exam: Positive: Nl turgor and temperature Neuro Exam: Positive: Strength at 5/5 X4 ext, Sensation Intact Assessment /Plan Problems (1) Tibia/fibula fracture, shaft Status: Acute Problem Text: Bilateral lower extremity tib-fib fractures - 2/2 crush injury from [employer] Left open fibula and tibia shaft fractures, grade 2, Right open extraarticular pilon fracture and fibula shaft fracture, grade 2. , Status post Incision and drainage open tibia and fibula shaft fracture on the left and left intramedullary nailing, left wound negative pressure wound therapy Status post Incision and drainage open tibia and fibula fracture on the right with extraarticular pilon and right uniplane Ex-Fix Status post surgical repair, bilateral tib-fib fracture by Dr. Perez, I had long discussion with patient regarding tapering off in converting morphine CNC MILL PROGRAMMER to by mouth meds for his pain control but he has so far resisted any effort to stop morphine CNC MILL PROGRAMMER Patient did not participate much with physical therapy yesterday secondary to pain, but he is willing to do it today . I will continue patient's CNC MILL PROGRAMMER till patient seen by pain management, which is still pending (2) Alcohol abuse Status: Acute Problem Text: Patient presented with alcohol intoxication on admission There was no evidence of withdrawal during his stay in the hospital Continue thiamine, folate and multivitamin. (3) Constipation Status: Chronic Problem Text: Patient takes methadone at home The patient most likely secondary to opiates Symptomatic care (4) Peripheral neuropathy Status: Chronic Problem Text: Continue gabapentin (5) Mood disorder Status: Chronic Problem Text: Continue Escitalopram Plan/VTE VTE Prophylaxis Ordered?: Yes VS, I&O, 24H, Fishbone Vital Signs/I&O Vital Signs Date Time Temp Pulse Resp B/P (MAP) Pulse Ox O2 Delivery O2 Flow Rate FiO2 08/01/19 05:00 97.3 58 17 121/56 (77) 97 Room Air 07/27/19 16:50 98 07/27/19 06:00 2.0 I&O- Last 24 Hours up to 6 AM 08/01/19 06:00 Intake Total 1200 ml Output Total 625 ml Balance 575 ml RHEA HYMAN MD Aug 01, 2019 09:17
[2019-08-01 10:00] VITALS: BP 127/62
[2019-08-01] MEDS: NS 1,000 ML IV SCH ×2 (11:06→11:32)
[2019-08-01 14:00] VITALS: BP 126/63
[2019-08-01 18:00] VITALS: BP 128/66
[2019-08-01 20:10] VITALS: BP 131/67
[2019-08-02] MEDS: MORPHINE 1MG/ML IN 0.9% NACL 100ML IV BAG IV PRN ×4 (01:15→23:22)
[2019-08-02 02:49] VITALS: BP 135/62
[2019-08-02] MEDS: diphenhydrAMINE INJ 50MG/ML VIAL (J1200) IV PRN ×5 (03:00→21:28)
[2019-08-02 05:30] VITALS: BP 131/65
[2019-08-02] MEDS: SODIUM CHLORIDE 0.9% INJ 10 ML SYR IV SCH ×2 (05:54→17:46)
[2019-08-02] MEDS: CLINDAMYCIN 150 MG CAP PO SCH ×3 (06:36→21:19)
[2019-08-02] MEDS: MOM 30ML SUSPENSION UDC PO SCH (09:00)
[2019-08-02] MEDS: MIRALAX *UNIT DOSE* 17GM PACKET PO SCH (09:00)
[2019-08-02] MEDS: THIAMINE 100 MG TAB PO SCH (09:18)
[2019-08-02] MEDS: SENOKOT S TAB PO SCH ×2 (09:18→21:20)
[2019-08-02] MEDS: MULTIVITAMINS/MINERALS THERAP 1 TAB PO SCH (09:18)
[2019-08-02] MEDS: ENOXAPARIN 30 MG/0.3 ML SYR (J1650) SC SCH ×2 (09:18→21:18)
[2019-08-02] MEDS: GABAPENTIN 300 MG CAP PO SCH ×4 (09:18→21:20)
[2019-08-02] MEDS: METHADONE 10 MG TAB (S0109) PO SCH (09:18)
[2019-08-02] MEDS: NICOTINE 21MG/24HR 1 EA TRANSDERMAL TD SCH (09:19)
[2019-08-02] MEDS: FOLIC ACID 1 MG TAB PO SCH (09:19)
[2019-08-02] MEDS: ESCITALOPRAM OXALATE 10 MG TAB (LEXAPRO) PO SCH (09:27)
[2019-08-02 10:00] VITALS: BP 118/62
--- NOTE | 2019-08-02 10:15 | IPNPDOC ---
Subjective Date Seen The patient was seen on 08/02/19. Subjective Chief Complaint/HPI Patient is still complaining of pain in both legs, right more than left General: Denies: ROS Unobtainable, Chills, Night Sweats, Fatigue, Malaise, Normal Appetite, Other Symptoms Constitutional: Denies: Chills, Fever, Malaise, Night Sweats, Weakness, Fatigue, Weight Loss, Lethargy, Other Eyes: Denies: Pain, Vision change, Conjunctivae inflammation, Eyelid inflammation, Redness, Other ENT: Denies: Head Aches, Ear Pain, Dysphagia, Sinus Congestion, Post Nasal Drip, Sore Throat, Epistaxis, Other Symptoms Skin: Reports: Other (clean incision with some superficial ulceration on the left leg. Casting of the right leg) Pulmonary: Denies: Dyspnea, Cough, Pleuritic Chest Pain, Other Symptoms Cardiovascular: Denies: Chest Pain, Palpitations, Orthopnea, Paroxysmal Noc. Dyspnea, Edema, Lt Headedness, Other Symptoms Gastrointestinal: Denies: Nausea, Vomiting, Abdominal Pain, Diarrhea, Constipation, Melena, Hematochezia, Other Symptoms Musculoskeletal: Denies: Neck Pain, Back Pain, Shoulder Pain, Arm Pain, Hand Pain, Leg Pain, Foot Pain, Joint Pain, Muscle Pain, Spasms, Other Symptoms Neurological: Denies: Weakness, Numbness, Incoordination, Change in speech, Confusion, Seizures, Other Symptoms Objective Physical Examination General Exam: Positive: Alert, Cooperative Eye Exam: Positive: PERRLA, Conjunctiva & lids normal Chest Exam: Positive: Clear to auscultation, Normal air movement Heart Exam: Positive: Rate Normal, Normal S1, Normal S2 Abdomen Exam: Positive: Normal bowel sounds, Soft, Tenderness Extremity Exam: Positive: Other (cast and a right lower extremity and dressing on left lower activity) Skin Exam: Positive: Nl turgor and temperature Neuro Exam: Positive: Strength at 5/5 X4 ext, Sensation Intact Assessment /Plan Problems (1) Tibia/fibula fracture, shaft Status: Acute Problem Text: Bilateral lower extremity tib-fib fractures - 2/2 crush injury from [employer] Left open fibula and tibia shaft fractures, grade 2, Right open extraarticular pilon fracture and fibula shaft fracture, grade 2. , Status post Incision and drainage open tibia and fibula shaft fracture on the left and left intramedullary nailing, left wound negative pressure wound therapy Status post Incision and drainage open tibia and fibula fracture on the right with extraarticular pilon and right uniplane Ex-Fix Status post surgical repair, bilateral tib-fib fracture by Dr. Perez, I had long discussion with patient regarding tapering off in converting morphine MANAGER VOICE to by mouth meds for his pain control but he has so far resisted any effort to stop morphine MANAGER VOICE Patient will receive physical therapy again today and is willing to participate Pain management consult is pending. Hopefully will be seen today to wean him off MANAGER VOICE His left leg wound is clean. No evidence of acute infection. WBC count within normal range, continue local care (2) Alcohol abuse Status: Acute Problem Text: Patient presented with alcohol intoxication on admission There was no evidence of withdrawal during his stay in the hospital Continue thiamine, folate and multivitamin. (3) Constipation Status: Chronic Problem Text: Patient takes methadone at home The patient most likely secondary to opiates Symptomatic care (4) Peripheral neuropathy Status: Chronic Problem Text: Continue gabapentin (5) Mood disorder Status: Chronic Problem Text: Continue Escitalopram Plan/VTE VTE Prophylaxis Ordered?: Yes VS, I&O, 24H, Fishbone Vital Signs/I&O Vital Signs Date Time Temp Pulse Resp B/P (MAP) Pulse Ox O2 Delivery O2 Flow Rate FiO2 08/02/19 05:30 97.5 68 16 131/65 (87) 95 Room Air 07/27/19 16:50 98 07/27/19 06:00 2.0 I&O- Last 24 Hours up to 6 AM 08/02/19 06:00 Intake Total 2580 ml Output Total 3100 ml Balance -520 ml RHEA HYMAN MD Aug 02, 2019 10:15
[2019-08-02] MEDS: NS 1,000 ML IV SCH (11:06)
[2019-08-02 14:00] VITALS: BP 124/64
[2019-08-02 18:00] VITALS: BP 134/70
[2019-08-02 20:01] VITALS: BP 121/66
[2019-08-03] MEDS: diphenhydrAMINE INJ 50MG/ML VIAL (J1200) IV PRN ×6 (02:00→22:28)
[2019-08-03 02:32] VITALS: BP 108/56
[2019-08-03 05:46] VITALS: BP 109/64
[2019-08-03] MEDS: SODIUM CHLORIDE 0.9% INJ 10 ML SYR IV SCH ×2 (06:01→18:14)
[2019-08-03] MEDS: CLINDAMYCIN 150 MG CAP PO SCH ×3 (06:01→20:41)
[2019-08-03] MEDS: MORPHINE 1MG/ML IN 0.9% NACL 100ML IV BAG IV PRN ×2 (06:24→16:05)
[2019-08-03] MEDS: MOM 30ML SUSPENSION UDC PO SCH (09:00)
[2019-08-03] MEDS: MIRALAX *UNIT DOSE* 17GM PACKET PO SCH (09:00)
[2019-08-03] MEDS: SENOKOT S TAB PO SCH ×2 (09:14→20:41)
[2019-08-03] MEDS: THIAMINE 100 MG TAB PO SCH (09:14)
[2019-08-03] MEDS: ENOXAPARIN 30 MG/0.3 ML SYR (J1650) SC SCH ×2 (09:14→20:42)
[2019-08-03] MEDS: NICOTINE 21MG/24HR 1 EA TRANSDERMAL TD SCH (09:14)
[2019-08-03] MEDS: ESCITALOPRAM OXALATE 10 MG TAB (LEXAPRO) PO SCH (09:14)
[2019-08-03] MEDS: METHADONE 10 MG TAB (S0109) PO SCH (09:15)
[2019-08-03] MEDS: MULTIVITAMINS/MINERALS THERAP 1 TAB PO SCH (09:15)
[2019-08-03] MEDS: GABAPENTIN 300 MG CAP PO SCH ×4 (09:15→20:41)
[2019-08-03] MEDS: FOLIC ACID 1 MG TAB PO SCH (09:16)
[2019-08-03 10:00] VITALS: BP 133/70
--- NOTE | 2019-08-03 10:22 | IPNPDOC ---
Subjective Date Seen The patient was seen on 08/03/19. Subjective Chief Complaint/HPI As per patient, yesterday we while he was doing physical therapy. He put his full weight bearing on the right leg and he almost fell and now complaining of severe pain in the right leg. Patient was also started on clindamycin for superficial infection on his right as well as recent left lower extremity, but there is no redness or increased local temperature, but there is a bipedal edema positiven , which is most likely secondary to sedentary status General: Denies: ROS Unobtainable, Chills, Night Sweats, Fatigue, Malaise, Normal Appetite, Other Symptoms Constitutional: Denies: Chills, Fever, Malaise, Night Sweats, Weakness, Fatigue, Weight Loss, Lethargy, Other Pulmonary: Denies: Dyspnea, Cough, Pleuritic Chest Pain, Other Symptoms Cardiovascular: Denies: Chest Pain, Palpitations, Orthopnea, Paroxysmal Noc. Dyspnea, Edema, Lt Headedness, Other Symptoms Musculoskeletal: Reports: Leg Pain Neurological: Denies: Weakness, Numbness, Incoordination, Change in speech, Confusion, Seizures, Other Symptoms Psych: Denies: Mood Normal, Anxiety, Depression, Memory Issues, Thoughts of Self Harm, Anger, Thoughts of Harming Other, Other Psych Objective Physical Examination General Exam: Positive: Alert, Cooperative Eye Exam: Positive: PERRLA, Conjunctiva & lids normal Chest Exam: Positive: Clear to auscultation, Normal air movement Heart Exam: Positive: Rate Normal, Normal S1, Normal S2 Abdomen Exam: Positive: Normal bowel sounds, Soft, Tenderness Extremity Exam: Positive: Other (cast and a right lower extremity and dressing on left lower activity) Skin Exam: Positive: Nl turgor and temperature Neuro Exam: Positive: Strength at 5/5 X4 ext, Sensation Intact Assessment /Plan Problems (1) Tibia/fibula fracture, shaft Status: Acute Problem Text: Bilateral lower extremity tib-fib fractures - 2/2 crush injury from [employer] Left open fibula and tibia shaft fractures, grade 2, Right open extraarticular pilon fracture and fibula shaft fracture, grade 2. , Status post Incision and drainage open tibia and fibula shaft fracture on the left and left intramedullary nailing, left wound negative pressure wound therapy Status post Incision and drainage open tibia and fibula fracture on the right with extraarticular pilon and right uniplane Ex-Fix Status post surgical repair, bilateral tib-fib fracture by Dr. Perez, I had long discussion with patient regarding tapering off in converting morphine WAREHOUSE CONSULTANT to by mouth meds for his pain control but he has so far resisted any effort to stop morphine WAREHOUSE CONSULTANT Patient will receive physical therapy again today and is willing to participate Pain management consult is pending. Patient has a follow-up scheduled with orthopedic today (2) Alcohol abuse Status: Acute Problem Text: Patient presented with alcohol intoxication on admission There was no evidence of withdrawal during his stay in the hospital Continue thiamine, folate and multivitamin. (3) Constipation Status: Chronic Problem Text: Patient takes methadone at home The patient most likely secondary to opiates Symptomatic care (4) Peripheral neuropathy Status: Chronic Problem Text: Continue gabapentin (5) Mood disorder Status: Chronic Problem Text: Continue Escitalopram (6) Cellulitis Status: Acute Problem Text: Superficial cellulitis of the surgical areas, both legs. Patient has been started on clindamycin Continue present aggressive A lot of CBC, CMP in a.m. Plan/VTE VTE Prophylaxis Ordered?: Yes VS, I&O, 24H, Fishbone Vital Signs/I&O Vital Signs Date Time Temp Pulse Resp B/P (MAP) Pulse Ox O2 Delivery O2 Flow Rate FiO2 08/03/19 05:46 97.4 52 18 109/64 (79) 98 Room Air I&O- Last 24 Hours up to 6 AM 08/03/19 06:00 Intake Total 2760 ml Output Total 2980 ml Balance -220 ml RHEA HYMAN MD Aug 03, 2019 10:22
[2019-08-03] MEDS: NS 1,000 ML IV SCH (11:48)
[2019-08-03 14:00] VITALS: BP 122/61
--- NOTE | 2019-08-03 15:56 | REP ---
Bilateral tib-fib series: Eight views: History: Check position. Comparison radiographs are from July 15, 2019. Findings: The patient is status post open reduction and internal fixation of bilateral tib-fib fractures. The right tibial fractures transfixed with a metallic intramedullary marija in good position. There is a screw plate device transfixing the distal fibular fracture on the right also in good position. On the left, there is an intramedullary marija transfixing the mid shaft fracture in anatomic position. A proximal fibular diaphyseal fracture is again seen on the left. Skin nagi are noted. Impression: Status post bilateral tibial intramedullary marija and a right distal fibular screw plate fixation. Bilateral tib-fib fractures. Electronically Signed by Adi Gaffney MD 08/03/2019 07:51 P
[2019-08-03 18:00] VITALS: BP 132/68
[2019-08-03 20:34] VITALS: BP 132/68
[2019-08-04] VITALS (7 sets, daily range): BP systolic 109–124; BP diastolic 50–70
[2019-08-04] MEDS: MORPHINE 1MG/ML IN 0.9% NACL 100ML IV BAG IV PRN ×3 (00:59→17:29)
[2019-08-04] MEDS: diphenhydrAMINE INJ 50MG/ML VIAL (J1200) IV PRN ×5 (02:29→21:29)
[2019-08-04] MEDS: SODIUM CHLORIDE 0.9% INJ 10 ML SYR IV PRN (02:30)
[2019-08-04] MEDS: SODIUM CHLORIDE 0.9% INJ 10 ML SYR IV SCH ×2 (06:14→17:29)
[2019-08-04] MEDS: CLINDAMYCIN 150 MG CAP PO SCH ×3 (06:14→21:04)
[2019-08-04 06:41] LABS: BASO # 0.1 10^3/uL (0.0-0.2); BASO % 0.9 % (0.0-1.0); EOS # 0.3 10^3/uL (0.0-0.5); EOS % 4.2 % (0.0-3.0); HEMATOCRIT 31.2 % (42.0-52.0); HEMOGLOBIN 9.7 g/dl (13.5-17.5); MEAN CORPUSCULAR HEMOGLOBIN 29.5 pg (27.0-33.0); MEAN CORPUSCULAR HGB CONC 31.1 g/dl (32.0-36.5); MEAN CORPUSCULAR VOLUME 94.8 fl (80.0-96.0); MONO # 0.7 10^3/uL (0.0-0.8); NEUTROPHILS # 3.6 10^3/uL (1.5-8.5); PLATELET COUNT, AUTOMATED 317 10^3/uL (150-450); RED BLOOD COUNT 3.29 10^6/uL (4.30-6.10); WHITE BLOOD COUNT 6.7 10^3/uL (4.0-10.0)
[2019-08-04 07:05] LABS: ALBUMIN 2.8 GM/DL (3.2-5.2); ALT/SGPT 35 U/L (12-78); BILIRUBIN,TOTAL 0.3 MG/DL (0.2-1.0); BLOOD UREA NITROGEN 14 MG/DL (7-18); CALCIUM LEVEL 8.3 MG/DL (8.5-10.1); CARBON DIOXIDE LEVEL 31 MEQ/L (21-32); CHLORIDE LEVEL 104 MEQ/L (98-107); CREATININE FOR GFR 0.89 MG/DL (0.70-1.30); GLOMERULAR FILTRATION RATE > 60.0 (>60); GLUCOSE, FASTING 105 MG/DL (70-100); POTASSIUM SERUM 3.8 MEQ/L (3.5-5.1); SODIUM LEVEL 139 MEQ/L (136-145)
[2019-08-04] MEDS: MULTIVITAMINS/MINERALS THERAP 1 TAB PO SCH (08:09)
[2019-08-04] MEDS: GABAPENTIN 300 MG CAP PO SCH ×4 (08:09→21:04)
[2019-08-04] MEDS: THIAMINE 100 MG TAB PO SCH (08:09)
[2019-08-04] MEDS: FOLIC ACID 1 MG TAB PO SCH (08:09)
[2019-08-04] MEDS: ESCITALOPRAM OXALATE 10 MG TAB (LEXAPRO) PO SCH (08:09)
[2019-08-04] MEDS: METHADONE 10 MG TAB (S0109) PO SCH (08:09)
[2019-08-04] MEDS: ENOXAPARIN 30 MG/0.3 ML SYR (J1650) SC SCH ×2 (08:10→21:05)
[2019-08-04] MEDS: MOM 30ML SUSPENSION UDC PO SCH (08:10)
[2019-08-04] MEDS: NICOTINE 21MG/24HR 1 EA TRANSDERMAL TD SCH (08:10)
[2019-08-04] MEDS: SENOKOT S TAB PO SCH ×2 (08:10→21:00)
[2019-08-04] MEDS: MIRALAX *UNIT DOSE* 17GM PACKET PO SCH (08:11)
--- NOTE | 2019-08-04 10:35 | IPNPDOC ---
Subjective Date Seen The patient was seen on 08/04/19. Subjective Chief Complaint/HPI Patient is sitting on side of bed scheduled to see pain management today General: Denies: ROS Unobtainable, Chills, Night Sweats, Fatigue, Malaise, Normal Appetite, Other Symptoms Constitutional: Denies: Chills, Fever, Malaise, Night Sweats, Weakness, Fatigue, Weight Loss, Lethargy, Other Pulmonary: Denies: Dyspnea, Cough, Pleuritic Chest Pain, Other Symptoms Cardiovascular: Denies: Chest Pain, Palpitations, Orthopnea, Paroxysmal Noc. Dyspnea, Edema, Lt Headedness, Other Symptoms Gastrointestinal: Denies: Nausea, Vomiting, Abdominal Pain, Diarrhea, Constipation, Melena, Hematochezia, Other Symptoms Endocrine: Denies: Polydipsia, Polyphagia, Polyuria, Heat Intolerance, Cold Intolerance, Other Endocrine Sx Musculoskeletal: Reports: Leg Pain Neurological: Denies: Weakness, Numbness, Incoordination, Change in speech, Confusion, Seizures, Other Symptoms Objective Physical Examination General Exam: Positive: Alert, Cooperative Eye Exam: Positive: PERRLA, Conjunctiva & lids normal Chest Exam: Positive: Clear to auscultation, Normal air movement Heart Exam: Positive: Rate Normal, Normal S1, Normal S2 Abdomen Exam: Positive: Normal bowel sounds, Soft, Tenderness Extremity Exam: Positive: Other (cast and a right lower extremity and dressing on left lower activity) Skin Exam: Positive: Nl turgor and temperature Neuro Exam: Positive: Strength at 5/5 X4 ext, Sensation Intact Assessment /Plan Problems (1) Tibia/fibula fracture, shaft Status: Acute Problem Text: Bilateral lower extremity tib-fib fractures - 2/2 crush injury from [employer] truck Left open fibula and tibia shaft fractures, grade 2, Right open extraarticular pilon fracture and fibula shaft fracture, grade 2. , Status post Incision and drainage open tibia and fibula shaft fracture on the left and left intramedullary nailing, left wound negative pressure wound therapy Status post Incision and drainage open tibia and fibula fracture on the right with extraarticular pilon and right uniplane Ex-Fix Status post surgical repair, bilateral tib-fib fracture by Dr. 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 (3) Constipation Status: Chronic Problem Text: Patient takes methadone at home The patient most likely secondary to opiates Symptomatic care (4) Peripheral neuropathy Status: Chronic Problem Text: Continue gabapentin (5) Mood disorder Status: Chronic Problem Text: Continue Escitalopram (6) Cellulitis Status: Acute Problem Text: Superficial cellulitis of the surgical areas, both legs. Patient has been started on clindamycin WBC count of 6.7. We'll continue antibiotics for a few more days Plan/VTE VTE Prophylaxis Ordered?: Yes VS, I&O, 24H, Fishbone Vital Signs/I&O Vital Signs Date Time Temp Pulse Resp B/P (MAP) Pulse Ox O2 Delivery O2 Flow Rate FiO2 08/04/19 05:34 97.7 61 18 121/57 (78) 98 Room Air I&O- Last 24 Hours up to 6 AM 08/04/19 06:00 Intake Total 2320 ml Output Total 2870 ml Balance -550 ml Laboratory Data 24H LABS Laboratory Tests 2 08/04/19 06:03: Immature Granulocyte % (Auto) 0.9, Neutrophils (%) (Auto) 54.0, Lymphocytes (%) (Auto) 30.0, Monocytes (%) (Auto) 10.0H, Eosinophils (%) (Auto) 4.2H, Basophils (%) (Auto) 0.9, Neutrophils # (Auto) 3.6, Lymphocytes # (Auto) 2.0, Monocytes # (Auto) 0.7, Eosinophils # (Auto) 0.3, Basophils # (Auto) 0.1, Nucleated Red Blood Cells % (auto) 0.0, Anion Gap 4L, Glomerular Filtration Rate > 60.0, Calcium Level 8.3L, Total Bilirubin 0.3, Aspartate Amino Transf (AST/SGOT) 23, Alanine Aminotransferase (ALT/SGPT) 35, Alkaline Phosphatase 71, Total Protein 6.0L, Albumin 2.8L, Albumin/Globulin Ratio 0.88L CBC/BMP Laboratory Tests 08/04/19 06:03 RHEA HYMAN MD Aug 04, 2019 10:35
[2019-08-04] MEDS: NS 1,000 ML IV SCH (11:06)
--- NOTE | 2019-08-04 16:01 | CR ---
DATE OF CONSULTATION: 08/04/2019 REFERRING PROVIDER: Dr. Borges CHIEF COMPLAINT: Lower extremity pain. HISTORY OF PRESENT ILLNESS: Shaheed is a 39-year-old gentleman, who has suffered a crush injury to the lower extremities on 07/15/2019 requiring major stabilization surgery. History of heroin addiction disorder. States he is on daily methadone pickup in [place]. States he has not used in 2 years. Currently using methadone 145 mg daily for addiction disorder. 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 He has been on this consuming approximately 10-15 mg of IV morphine every hour over the past 2 weeks. Today, he is asking to be on the morphine YARD WAREHOUSE WORKER for two more days. States that yesterday when he was moving with physical therapy he had to put weight on his right lower extremity and the physical therapist was small and he was not able to brace himself and injured his right lower extremity. States that is why it is swollen today. States this is why he has used more of the morphine in the past 24 hours because of the injury. He states that he is aware that he needs to be off of IV morphine and go to by mouth medication in order to get into a rehab service. Briefly discussed the possibility of transitioning to oral morphine and he seems somewhat receptive. ALLERGIES: PENICILLIN. PAST MEDICAL HISTORY: Addiction disorder. SURGICAL HISTORY: None known. REVIEW OF SYSTEMS: 10-point review of systems is negative except for complaints as stated in history of present illness (HPI). PHYSICAL EXAMINATION: Awake, alert, cooperative. Family at bedside. Vital signs: 97, 66, 16. Blood pressure (BP) 124/78. Oxygen saturation is 98% on room air. Cardiac: S1, S2, normal rate and rhythm. Respiratory: Lung sounds are clear. Respirations nonlabored. Inspection lower extremities with bandages: Some redness and swelling noted over the right foot and lower extremity. ASSESSMENT: Acute pain lower extremities secondary to traumatic injury. PLAN: I would recommend a slow taper off of morphine YARD WAREHOUSE WORKER over the next 48 hours. Consider lowering the dosage from 7.5mg to 5mg x10 hrs, and then proceed to 4mg x24hrs then discontinue. Consider use of MS-Contin 30 mg twice a day. Consider using morphine instant release 15 mg one every 6 hours as needed for breakthrough pain. Of course with his history of addiction disorder, the use of these medications would have to be limited and the patient should know that at onset of use. Thank you for allowing us to participate in the care of your patient. If you have any questions please do not hesitate to contact us. MICHELLE
[2019-08-04] MEDS: MORPHINE 30 MG SA TAB PO SCH (21:07)
[2019-08-05 01:44] VITALS: BP 125/70
[2019-08-05] MEDS: diphenhydrAMINE INJ 50MG/ML VIAL (J1200) IV PRN ×6 (01:50→23:54)
[2019-08-05] MEDS: MORPHINE 30 MG TAB **MSIR PO PRN ×3 (01:50→19:22)
[2019-08-05 05:03] VITALS: BP 118/56
[2019-08-05] MEDS: SODIUM CHLORIDE 0.9% INJ 10 ML SYR IV SCH ×2 (06:18→17:41)
[2019-08-05] MEDS: CLINDAMYCIN 150 MG CAP PO SCH ×3 (06:18→20:50)
[2019-08-05] MEDS: MORPHINE 1MG/ML IN 0.9% NACL 100ML IV BAG IV PRN ×2 (06:18→16:30)
[2019-08-05] MEDS: MOM 30ML SUSPENSION UDC PO SCH (09:00)
[2019-08-05] MEDS: MIRALAX *UNIT DOSE* 17GM PACKET PO SCH (09:00)
[2019-08-05] MEDS: ESCITALOPRAM OXALATE 10 MG TAB (LEXAPRO) PO SCH (09:00)
[2019-08-05 09:51] VITALS: BP 123/56
--- NOTE | 2019-08-05 09:51 | IPNPDOC ---
Subjective Date Seen The patient was seen on 08/05/19. Subjective Chief Complaint/HPI As per patient, he is not in the mood to speak with me, but has no new complaints at the present time General: Denies: ROS Unobtainable, Chills, Night Sweats, Fatigue, Malaise, Normal Appetite, Other Symptoms Pulmonary: Denies: Dyspnea, Cough, Pleuritic Chest Pain, Other Symptoms Cardiovascular: Denies: Chest Pain, Palpitations, Orthopnea, Paroxysmal Noc. Dyspnea, Edema, Lt Headedness, Other Symptoms Musculoskeletal: Denies: Neck Pain, Back Pain, Shoulder Pain, Arm Pain, Hand Pain, Leg Pain, Foot Pain, Joint Pain, Muscle Pain, Spasms, Other Symptoms Neurological: Denies: Weakness, Numbness, Incoordination, Change in speech, Confusion, Seizures, Other Symptoms Objective Physical Examination Neck Exam: Positive: Supple Chest Exam: Positive: Clear to auscultation, Normal air movement Heart Exam: Positive: Rate Normal, Normal S1, Normal S2 Abdomen Exam: Positive: Normal bowel sounds, Soft, Tenderness Extremity Exam: Positive: Other (cast and a right lower extremity and dressing on left lower activity) Skin Exam: Positive: Nl turgor and temperature Assessment /Plan Problems (1) Tibia/fibula fracture, shaft Status: Acute Problem Text: Bilateral lower extremity tib-fib fractures - 2/2 crush injury from [employer] truck Left open fibula and tibia shaft fractures, grade 2, Right open extraarticular pilon fracture and fibula shaft fracture, grade 2. , Status post Incision and drainage open tibia and fibula shaft fracture on the left and left intramedullary nailing, left wound negative pressure wound therapy Status post Incision and drainage open tibia and fibula fracture on the right with extraarticular pilon and right uniplane Ex-Fix Status post surgical repair, bilateral tib-fib fracture by Dr. Perez, I had long discussion with patient regarding tapering off in converting morphine COMMUNITY REPRESENTATIVE to by mouth meds for his pain control but he has so far resisted any effort to stop morphine COMMUNITY REPRESENTATIVE Patient will receive physical therapy again today and is willing to participate We'll try to wean off patient's COMMUNITY REPRESENTATIVE. He is presently on morphine 5 mg, which we'll decrease to 4 mg per pain management recommendations and slowly decreased to 2 mg tomorrow and then DC COMMUNITY REPRESENTATIVE Also has been started on long-acting morphine and short-acting morphine as per pain management's recommendations Continue methadone as per previous orders Physical therapy in progress (2) Alcohol abuse Status: Acute Problem Text: Patient presented with alcohol intoxication on admission There was no evidence of withdrawal during his stay in the hospital Continue thiamine, folate and multivitamin. (3) Constipation Status: Chronic Problem Text: Patient takes methadone at home The patient most likely secondary to opiates Symptomatic care (4) Peripheral neuropathy Status: Chronic Problem Text: Continue gabapentin (5) Mood disorder Status: Chronic Problem Text: Continue Escitalopram (6) Cellulitis Status: Acute Problem Text: Superficial cellulitis of the surgical areas, both legs. Patient has been started on clindamycin WBC count is essentially within normal limit Will continue monitoring clinically and possibly changed to by mouth in a day or 2 Plan/VTE VTE Prophylaxis Ordered?: Yes VS, I&O, 24H, Fishbone Vital Signs/I&O Vital Signs Date Time Temp Pulse Resp B/P (MAP) Pulse Ox O2 Delivery O2 Flow Rate FiO2 08/05/19 05:03 96.5 65 20 118/56 (76) 93 Room Air I&O- Last 24 Hours up to 6 AM 08/05/19 06:00 Intake Total 1800 ml Output Total 1400 ml Balance 400 ml RHEA HYMAN MD Aug 05, 2019 09:51
[2019-08-05] MEDS: ENOXAPARIN 30 MG/0.3 ML SYR (J1650) SC SCH ×2 (10:00→20:49)
[2019-08-05] MEDS: SENOKOT S TAB PO SCH ×2 (10:01→20:50)
[2019-08-05] MEDS: METHADONE 10 MG TAB (S0109) PO SCH (10:01)
[2019-08-05] MEDS: FOLIC ACID 1 MG TAB PO SCH (10:02)
[2019-08-05] MEDS: MULTIVITAMINS/MINERALS THERAP 1 TAB PO SCH (10:02)
[2019-08-05] MEDS: MORPHINE 30 MG SA TAB PO SCH ×2 (10:02→20:50)
[2019-08-05] MEDS: GABAPENTIN 300 MG CAP PO SCH ×4 (10:03→20:50)
[2019-08-05] MEDS: NICOTINE 21MG/24HR 1 EA TRANSDERMAL TD SCH (10:04)
[2019-08-05] MEDS: THIAMINE 100 MG TAB PO SCH (10:19)
[2019-08-05] MEDS: NS 1,000 ML IV SCH (10:58)
[2019-08-05 14:48] VITALS: BP 133/114
[2019-08-05] MEDS ORDERED: MORPHINE 1MG/ML IN 0.9% NACL 100ML IV BAG IV PRN (18:30)
[2019-08-05 20:00] VITALS: BP 114/56
[2019-08-06] MEDS: MORPHINE 30 MG TAB **MSIR PO PRN ×4 (01:29→22:30)
[2019-08-06] MEDS: diphenhydrAMINE INJ 50MG/ML VIAL (J1200) IV PRN ×5 (03:56→21:33)
[2019-08-06] MEDS: CLINDAMYCIN 150 MG CAP PO SCH ×3 (05:30→21:27)
[2019-08-06] MEDS: SODIUM CHLORIDE 0.9% INJ 10 ML SYR IV SCH ×2 (05:31→17:17)
[2019-08-06 06:00] VITALS: BP 114/55
[2019-08-06 06:08] LABS: BASO % 0.7 % (0.0-1.0); EOS # 0.3 10^3/uL (0.0-0.5); EOS % 5.2 % (0.0-3.0); HEMATOCRIT 31.9 % (42.0-52.0); HEMOGLOBIN 9.8 g/dl (13.5-17.5); LYMPH # 1.9 10^3/uL (1.5-5.0); LYMPH % 32.9 % (24.0-44.0); MEAN CORPUSCULAR HEMOGLOBIN 29.4 pg (27.0-33.0); MEAN CORPUSCULAR HGB CONC 30.7 g/dl (32.0-36.5); MEAN CORPUSCULAR VOLUME 95.8 fl (80.0-96.0); MONO # 0.5 10^3/uL (0.0-0.8); MONO % 7.8 % (0.0-5.0); NEUTROPHILS % 52.7 % (36.0-66.0); PLATELET COUNT, AUTOMATED 262 10^3/uL (150-450); RED BLOOD COUNT 3.33 10^6/uL (4.30-6.10); WHITE BLOOD COUNT 5.8 10^3/uL (4.0-10.0)
[2019-08-06 06:31] LABS: ALBUMIN 2.8 GM/DL (3.2-5.2); ALT/SGPT 41 U/L (12-78); BILIRUBIN,TOTAL 0.3 MG/DL (0.2-1.0); BLOOD UREA NITROGEN 9 MG/DL (7-18); CALCIUM LEVEL 8.8 MG/DL (8.5-10.1); CARBON DIOXIDE LEVEL 32 MEQ/L (21-32); CHLORIDE LEVEL 106 MEQ/L (98-107); CREATININE FOR GFR 0.87 MG/DL (0.70-1.30); GLOMERULAR FILTRATION RATE > 60.0 (>60); GLUCOSE, FASTING 131 MG/DL (70-100); POTASSIUM SERUM 3.6 MEQ/L (3.5-5.1); SODIUM LEVEL 140 MEQ/L (136-145); TOTAL PROTEIN 6.3 GM/DL (6.4-8.2)
[2019-08-06] MEDS: MIRALAX *UNIT DOSE* 17GM PACKET PO SCH (09:00)
[2019-08-06] MEDS: MOM 30ML SUSPENSION UDC PO SCH (09:00)
[2019-08-06] MEDS: METHADONE 10 MG TAB (S0109) PO SCH (09:31)
[2019-08-06] MEDS: MORPHINE 30 MG SA TAB PO SCH ×2 (09:31→21:28)
[2019-08-06] MEDS: FOLIC ACID 1 MG TAB PO SCH (09:31)
[2019-08-06] MEDS: MULTIVITAMINS/MINERALS THERAP 1 TAB PO SCH (09:31)
[2019-08-06] MEDS: SENOKOT S TAB PO SCH ×2 (09:31→21:27)
[2019-08-06] MEDS: THIAMINE 100 MG TAB PO SCH (09:32)
[2019-08-06] MEDS: NICOTINE 21MG/24HR 1 EA TRANSDERMAL TD SCH (09:32)
[2019-08-06] MEDS: GABAPENTIN 300 MG CAP PO SCH ×4 (09:32→21:27)
[2019-08-06] MEDS: ENOXAPARIN 30 MG/0.3 ML SYR (J1650) SC SCH ×2 (09:32→21:28)
[2019-08-06] MEDS: ESCITALOPRAM OXALATE 10 MG TAB (LEXAPRO) PO SCH (09:32)
[2019-08-06 10:47] VITALS: BP 123/63
--- NOTE | 2019-08-06 10:57 | IPNPDOC ---
Subjective Date Seen The patient was seen on 08/06/19. 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 Dyspnea, Edema, Lt Headedness, Other Symptoms Gastrointestinal: Denies: Nausea, Vomiting, Abdominal Pain, Diarrhea, Constipation, Melena, Hematochezia, Other Symptoms Musculoskeletal: Denies: Neck Pain, Back Pain, Shoulder Pain, Arm Pain, Hand Pain, Leg Pain, Foot Pain, Joint Pain, Muscle Pain, Spasms, Other Symptoms Neurological: Denies: Weakness, Numbness, Incoordination, Change in speech, Confusion, Seizures, Other Symptoms Objective Physical Examination Neck Exam: Positive: Supple Chest Exam: Positive: Clear to auscultation, Normal air movement Heart Exam: Positive: Rate Normal, Normal S1, Normal S2 Abdomen Exam: Positive: Normal bowel sounds, Soft, Tenderness Extremity Exam: Positive: Other (cast and a right lower extremity and dressing on left lower activity) Skin Exam: Positive: Nl turgor and temperature Assessment /Plan Problems (1) Tibia/fibula fracture, shaft Status: Acute Problem Text: Bilateral lower extremity tib-fib fractures - 2/2 crush injury from [employer] truck Left open fibula and tibia shaft fractures, grade 2, Right open extraarticular pilon fracture and fibula shaft fracture, grade 2. , Status post Incision and drainage open tibia and fibula shaft fracture on the left and left intramedullary nailing, left wound negative pressure wound therapy Status post Incision and drainage open tibia and fibula fracture on the right with extraarticular pilon and right uniplane Ex-Fix Status post surgical repair, bilateral tib-fib fracture by Dr. Perez, Patient's morphine BOILERMAKER PIPE FITTER has been decreased from 5 mg to 3 mg and today this afternoon. We will discontinue BOILERMAKER PIPE FITTER Also has been started on long-acting morphine and short-acting morphine as per pain management's recommendations. Patient is doing very well with current pain management with some pain is still present but tolerable Patient is also participating in physical therapy Patient eventually would need placement and shot term rehabilitation facility (2) Alcohol abuse Status: Acute Problem Text: Patient presented with alcohol intoxication on admission There was no evidence of withdrawal during his stay in the hospital Continue thiamine, folate and multivitamin. (3) Constipation Status: Chronic Problem Text: Patient takes methadone at home The patient most likely secondary to opiates Symptomatic care (4) Peripheral neuropathy Status: Chronic Problem Text: Continue gabapentin (5) Mood disorder Status: Chronic Problem Text: Continue Escitalopram (6) Cellulitis Status: Acute Problem Text: Superficial cellulitis of the surgical areas, both legs. Patient has been started on clindamycin WBC count is essentially within normal limit Will continue monitoring clinically and possibly changed to by mouth in a day or 2 Plan/VTE VTE Prophylaxis Ordered?: Yes VS, I&O, 24H, Fishbone Vital Signs/I&O Vital Signs Date Time Temp Pulse Resp B/P (MAP) Pulse Ox O2 Delivery O2 Flow Rate FiO2 08/06/19 09:31 18 08/06/19 06:00 96.0 55 114/55 (74) 95 Room Air I&O- Last 24 Hours up to 6 AM 08/06/19 06:00 Intake Total 2700 ml Output Total 1200 ml Balance 1500 ml Laboratory Data 24H LABS Laboratory Tests 2 08/06/19 05:55: Immature Granulocyte % (Auto) 0.7, Neutrophils (%) (Auto) 52.7, Lymphocytes (%) (Auto) 32.9, Monocytes (%) (Auto) 7.8H, Eosinophils (%) (Auto) 5.2H, Basophils (%) (Auto) 0.7, Neutrophils # (Auto) 3.0, Lymphocytes # (Auto) 1.9, Monocytes # (Auto) 0.5, Eosinophils # (Auto) 0.3, Basophils # (Auto) 0.0, Nucleated Red Blood Cells % (auto) 0.0, Anion Gap 2L, Glomerular Filtration Rate > 60.0, Calcium Level 8.8, Total Bilirubin 0.3, Aspartate Amino Transf (AST/SGOT) 24, A lanine Aminotransferase (ALT/SGPT) 41, Alkaline Phosphatase 84, Total Protein 6.3L, Albumin 2.8L, Albumin/Globulin Ratio 0.80L CBC/BMP Laboratory Tests 08/06/19 05:55 RHEA HYMAN MD Aug 06, 2019 10:57
[2019-08-06] MEDS: NS 1,000 ML IV SCH (11:04)
[2019-08-06 20:00] VITALS: BP 128/65
[2019-08-07] MEDS: diphenhydrAMINE INJ 50MG/ML VIAL (J1200) IV PRN ×6 (01:40→22:40)
[2019-08-07] MEDS: SODIUM CHLORIDE 0.9% INJ 10 ML SYR IV SCH ×2 (05:21→17:20)
[2019-08-07] MEDS: CLINDAMYCIN 150 MG CAP PO SCH (05:21)
[2019-08-07] MEDS: MORPHINE 30 MG TAB **MSIR PO PRN ×3 (05:30→19:45)
[2019-08-07 06:11] VITALS: BP 119/56
[2019-08-07] MEDS: METHADONE 10 MG TAB (S0109) PO SCH (08:25)
[2019-08-07] MEDS: MULTIVITAMINS/MINERALS THERAP 1 TAB PO SCH (08:26)
[2019-08-07] MEDS: THIAMINE 100 MG TAB PO SCH (08:26)
[2019-08-07] MEDS: GABAPENTIN 300 MG CAP PO SCH ×4 (08:26→21:35)
[2019-08-07] MEDS: SENOKOT S TAB PO SCH ×2 (08:26→21:35)
[2019-08-07] MEDS: FOLIC ACID 1 MG TAB PO SCH (08:26)
[2019-08-07] MEDS: ESCITALOPRAM OXALATE 10 MG TAB (LEXAPRO) PO SCH (08:26)
[2019-08-07] MEDS: MORPHINE 30 MG SA TAB PO SCH ×2 (08:26→21:36)
[2019-08-07] MEDS: MIRALAX *UNIT DOSE* 17GM PACKET PO SCH (08:27)
[2019-08-07] MEDS: MOM 30ML SUSPENSION UDC PO SCH (08:27)
[2019-08-07] MEDS: ENOXAPARIN 30 MG/0.3 ML SYR (J1650) SC SCH ×2 (08:27→21:00)
[2019-08-07] MEDS: NICOTINE 21MG/24HR 1 EA TRANSDERMAL TD SCH (08:27)
[2019-08-07] MEDS ORDERED: diphenhydrAMINE INJ 50MG/ML VIAL (J1200) IV PRN (09:45)
--- NOTE | 2019-08-07 09:48 | IPNPDOC ---
Subjective Date Seen The patient was seen on 08/07/19. 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 No redness or rash noted on both legs and he is participating inPT General: Denies: ROS Unobtainable, Chills, Night Sweats, Fatigue, Malaise, Normal Appetite, Other Symptoms Constitutional: Denies: Chills, Fever, Malaise, Night Sweats, Weakness, Fatigue, Weight Loss, Lethargy, Other Pulmonary: Denies: Dyspnea, Cough, Pleuritic Chest Pain, Other Symptoms Cardiovascular: Denies: Chest Pain, Palpitations, Orthopnea, Paroxysmal Noc. Dyspnea, Edema, Lt Headedness, Other Symptoms Gastrointestinal: Denies: Nausea, Vomiting, Abdominal Pain, Diarrhea, Constipation, Melena, Hematochezia, Other Symptoms Musculoskeletal: Reports: Leg Pain Neurological: Denies: Weakness, Numbness, Incoordination, Change in speech, Confusion, Seizures, Other Symptoms Psych: Denies: Mood Normal, Anxiety, Depression, Memory Issues, Thoughts of Self Harm, Anger, Thoughts of Harming Other, Other Psych Objective Physical Examination Neck Exam: Positive: Supple Chest Exam: Positive: Clear to auscultation, Normal air movement Heart Exam: Positive: Rate Normal, Normal S1, Normal S2 Abdomen Exam: Positive: Normal bowel sounds, Soft, Tenderness Extremity Exam: Positive: Other (cast and a right lower extremity and dressing on left lower activity) Skin Exam: Positive: Nl turgor and temperature Assessment /Plan Problems (1) Tibia/fibula fracture, shaft Status: Acute Problem Text: Bilateral lower extremity tib-fib fractures - 2/2 crush injury from [employer] truck Left open fibula and tibia shaft fractures, grade 2, Right open extraarticular pilon fracture and fibula shaft fracture, grade 2. , Status post Incision and drainage open tibia and fibula shaft fracture on the left and left intramedullary nailing, left wound negative pressure wound therapy Status post Incision and drainage open tibia and fibula fracture on the right with extraarticular pilon and right uniplane Ex-Fix Status post surgical repair, bilateral tib-fib fracture by Dr. Perez, Patient is off FOUNDER & CEO was discontinued as of this morning Continue long-acting and short-acting morphine sulfate as per orders is been tolerating very well Continue physical therapy Continue Benadryl for itching and insomnia when necessary possible transfer to subacute area facility was the bed is available (2) Alcohol abuse Status: Acute Problem Text: Patient presented with alcohol intoxication on admission There was no evidence of withdrawal during his stay in the hospital Continue thiamine, folate and multivitamin. (3) Constipation Status: Chronic Problem Text: Patient takes methadone at home The patient most likely secondary to opiates Symptomatic care (4) Peripheral neuropathy Status: Chronic Problem Text: Continue gabapentin (5) Mood disorder Status: Chronic Problem Text: Continue Escitalopram (6) Cellulitis Status: Acute Problem Text: No evidence of cellulitis on his legs. On examination WBC count was normal yesterday. Is afebrile with discontinue clindamycin and monitor clinically Plan/VTE VTE Prophylaxis Ordered?: Yes VS, I&O, 24H, Fishbone Vital Signs/I&O Vital Signs Date Time Temp Pulse Resp B/P (MAP) Pulse Ox O2 Delivery O2 Flow Rate FiO2 08/07/19 08:26 16 Room Air 08/07/19 06:11 96.0 59 119/56 (77) 97 I&O- Last 24 Hours up to 6 AM 08/07/19 05:59 Intake Total 2940 ml Output Total 1900 ml Balance 1040 ml RHEA HYMAN MD Aug 07, 2019 09:48
[2019-08-07 14:00] VITALS: BP 125/69
[2019-08-07 21:48] VITALS: BP 126/66
[2019-08-08] MEDS: diphenhydrAMINE INJ 50MG/ML VIAL (J1200) IV PRN ×5 (02:23→22:31)
[2019-08-08 06:23] VITALS: BP 121/63
[2019-08-08] MEDS: MORPHINE 30 MG TAB **MSIR PO PRN ×3 (06:38→19:52)
[2019-08-08] MEDS: SODIUM CHLORIDE 0.9% INJ 10 ML SYR IV SCH ×2 (06:39→18:22)
[2019-08-08] MEDS: METHADONE 10 MG TAB (S0109) PO SCH (08:13)
[2019-08-08] MEDS: THIAMINE 100 MG TAB PO SCH (08:13)
[2019-08-08] MEDS: FOLIC ACID 1 MG TAB PO SCH (08:14)
[2019-08-08] MEDS: MORPHINE 30 MG SA TAB PO SCH ×3 (08:14→21:00)
[2019-08-08] MEDS: ESCITALOPRAM OXALATE 10 MG TAB (LEXAPRO) PO SCH (08:14)
[2019-08-08] MEDS: SENOKOT S TAB PO SCH ×2 (08:14→20:59)
[2019-08-08] MEDS: NICOTINE 21MG/24HR 1 EA TRANSDERMAL TD SCH (08:14)
[2019-08-08] MEDS: MULTIVITAMINS/MINERALS THERAP 1 TAB PO SCH (08:14)
[2019-08-08] MEDS: MOM 30ML SUSPENSION UDC PO SCH (08:14)
[2019-08-08] MEDS: GABAPENTIN 300 MG CAP PO SCH ×4 (08:14→20:59)
[2019-08-08] MEDS: ENOXAPARIN 30 MG/0.3 ML SYR (J1650) SC SCH ×2 (08:14→20:59)
[2019-08-08] MEDS: MIRALAX *UNIT DOSE* 17GM PACKET PO SCH (08:15)
--- NOTE | 2019-08-08 09:11 | IPNPDOC ---
Subjective Date Seen The patient was seen on 08/08/19. Subjective Chief Complaint/HPI Patient complains of intense itching on his both legs Benadryl works but not complete relief Constitutional: Reports: Other (itching on bilateral legs) Skin: Denies: Rash, Lesions, Jaundice, Bruising, Itching, Dry, Breakdown, Nail Changes, Other Pulmonary: Denies: Dyspnea, Cough, Pleuritic Chest Pain, Other Symptoms Cardiovascular: Denies: Chest Pain, Palpitations, Orthopnea, Paroxysmal Noc. D yspnea, Edema, Lt Headedness, Other Symptoms Gastrointestinal: Denies: Nausea, Vomiting, Abdominal Pain, Diarrhea, Constipation, Melena, Hematochezia, Other Symptoms Musculoskeletal: Denies: Neck Pain, Back Pain, Shoulder Pain, Arm Pain, Hand Pain, Leg Pain, Foot Pain, Joint Pain, Muscle Pain, Spasms, Other Symptoms Neurological: Denies: Weakness, Numbness, Incoordination, Change in speech, Confusion, Seizures, Other Symptoms Objective Physical Examination Neck Exam: Positive: Supple Chest Exam: Positive: Clear to auscultation, Normal air movement Heart Exam: Positive: Rate Normal, Normal S1, Normal S2 Abdomen Exam: Positive: Normal bowel sounds, Soft, Tenderness Extremity Exam: Positive: Other (cast and a right lower extremity and dressing on left lower activity) Skin Exam: Positive: Nl turgor and temperature Assessment /Plan Problems (1) Tibia/fibula fracture, shaft Status: Acute Problem Text: Bilateral lower extremity tib-fib fractures - 2/2 crush injury from [employer] truck Left open fibula and tibia shaft fractures, grade 2, Right open extraarticular pilon fracture and fibula shaft fracture, grade 2. , Status post Incision and drainage open tibia and fibula shaft fracture on the left and left intramedullary nailing, left wound negative pressure wound therapy Status post Incision and drainage open tibia and fibula fracture on the right with extraarticular pilon and right uniplane Ex-Fix Status post surgical repair, bilateral tib-fib fracture by Dr. 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 (3) Constipation Status: Chronic Problem Text: Patient takes methadone at home The patient most likely secondary to opiates Symptomatic care (4) Peripheral neuropathy Status: Chronic Problem Text: Continue gabapentin (5) Mood disorder Status: Chronic Problem Text: Continue Escitalopram (6) Cellulitis Status: Acute Problem Text: No evidence of cellulitis on his legs. On examination WBC count was normal yesterday. Is afebrile with discontinue clindamycin and monitor clinically Plan/VTE VTE Prophylaxis Ordered?: Yes VS, I&O, 24H, Fishbone Vital Signs/I&O Vital Signs Date Time Temp Pulse Resp B/P (MAP) Pulse Ox O2 Delivery O2 Flow Rate FiO2 08/08/19 08:14 18 Room Air 08/08/19 06:23 97.9 52 121/63 (82) 97 I&O- Last 24 Hours up to 6 AM 08/08/19 06:00 Intake Total 2400 ml Output Total 3425 ml Balance -1025 ml RHEA HYMAN MD Aug 08, 2019 09:11
[2019-08-08 14:00] VITALS: BP 123/69
[2019-08-08 20:09] VITALS: BP 116/62
[2019-08-09] MEDS: MORPHINE 30 MG TAB **MSIR PO PRN ×4 (02:58→23:18)
[2019-08-09] MEDS: diphenhydrAMINE INJ 50MG/ML VIAL (J1200) IV PRN ×6 (02:59→22:49)
[2019-08-09 05:42] VITALS: BP 121/63
[2019-08-09] MEDS: SODIUM CHLORIDE 0.9% INJ 10 ML SYR IV SCH ×2 (05:58→17:08)
[2019-08-09] MEDS: CLINDAMYCIN 150 MG CAP PO SCH ×3 (06:46→22:49)
[2019-08-09] MEDS: MOM 30ML SUSPENSION UDC PO SCH (09:00)
[2019-08-09] MEDS ORDERED: MORPHINE 30 MG SA TAB PO ONE (09:00)
[2019-08-09] MEDS: MIRALAX *UNIT DOSE* 17GM PACKET PO SCH (09:00)
[2019-08-09] MEDS: SENOKOT S TAB PO SCH ×2 (09:00→20:11)
[2019-08-09] MEDS: NICOTINE 21MG/24HR 1 EA TRANSDERMAL TD SCH (09:07)
[2019-08-09] MEDS: ENOXAPARIN 30 MG/0.3 ML SYR (J1650) SC SCH ×2 (09:07→20:10)
[2019-08-09] MEDS: GABAPENTIN 300 MG CAP PO SCH ×4 (09:08→20:11)
[2019-08-09] MEDS: ESCITALOPRAM OXALATE 10 MG TAB (LEXAPRO) PO SCH (09:08)
[2019-08-09] MEDS: FOLIC ACID 1 MG TAB PO SCH (09:08)
[2019-08-09] MEDS: MULTIVITAMINS/MINERALS THERAP 1 TAB PO SCH (09:08)
[2019-08-09] MEDS: THIAMINE 100 MG TAB PO SCH (09:08)
[2019-08-09] MEDS: METHADONE 10 MG TAB (S0109) PO SCH (09:09)
--- NOTE | 2019-08-09 10:57 | IPNPDOC ---
Subjective Date Seen The patient was seen on 08/09/19. Subjective Chief Complaint/HPI Patient offers no new complaints in no distress. No fever restarted on clindamycin by mouth again by orthopedics group General: Denies: ROS Unobtainable, Chills, Night Sweats, Fatigue, Malaise, Normal Appetite, Other Symptoms Constitutional: Denies: Chills, Fever, Malaise, Night Sweats, Weakness, Fatigue, Weight Loss, Lethargy, Other Skin: Denies: Rash, Lesions, Jaundice, Bruising, Itching, Dry, Breakdown, Nail Changes, Other Pulmonary: Denies: Dyspnea, Cough, Pleuritic Chest Pain, Other Symptoms Cardiovascular: Denies: Chest Pain, Palpitations, Orthopnea, Paroxysmal Noc. Dyspnea, Edema, Lt Headedness, Other Symptoms Gastrointestinal: Denies: Nausea, Vomiting, Abdominal Pain, Diarrhea, Constipation, Melena, Hematochezia, Other Symptoms Musculoskeletal: Reports: Other Symptoms (bilaterally. Incisions look clean and dry dressing on the left leg at 2 areas, but no redness, increased localized temperature are swelling); Denies: Neck Pain, Back Pain, Shoulder Pain, Arm Pain, Hand Pain, Leg Pain, Foot Pain, Joint Pain, Muscle Pain, Spasms Neurological: Denies: Weakness, Numbness, Incoordination, Change in speech, Confusion, Seizures, Other Symptoms Objective Physical Examination General Exam: Positive: Alert, Cooperative Neck Exam: Positive: Supple Chest Exam: Positive: Clear to auscultation, Normal air movement Heart Exam: Positive: Rate Normal, Normal S1, Normal S2 Abdomen Exam: Positive: Normal bowel sounds, Soft, Tenderness Extremity Exam: Positive: Other (incision line on both legs looks nice and clean with with the healing. Sutures in place. Dressing on two the left lower extremity) Skin Exam: Positive: Nl turgor and temperature Assessment /Plan Problems (1) Tibia/fibula fracture, shaft Status: Acute Problem Text: Bilateral lower extremity tib-fib fractures - 2/2 crush injury from [employer] truck Left open fibula and tibia shaft fractures, grade 2, Right open extraarticular pilon fracture and fibula shaft fracture, grade 2. , Status post Incision and drainage open tibia and fibula shaft fracture on the left and left intramedullary nailing, left wound negative pressure wound therapy Status post Incision and drainage open tibia and fibula fracture on the right with extraarticular pilon and right uniplane Ex-Fix Status post surgical repair, bilateral tib-fib fracture by Dr. 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 Continue long-acting and short-acting morphine sulfate as per orders is been tolerating very well Continue physical therapy Started on by mouth, Clinda by orthopedic and Joe Vaughn for possible infection left lower extremity close to suture line Increased dose of Benadryl to 50 mg IV every 4 hours when necessary for intense itching in both legs Awaiting placement in subacute facility for short-term rehabilitation (2) Alcohol abuse Status: Acute Problem Text: Patient presented with alcohol intoxication on admission There was no evidence of withdrawal during his stay in the hospital Continue thiamine, folate and multivitamin. (3) Constipation Status: Chronic Problem Text: Patient takes methadone at home The patient most likely secondary to opiates Symptomatic care (4) Peripheral neuropathy Status: Chronic Problem Text: Continue gabapentin (5) Mood disorder Status: Chronic Problem Text: Continue Escitalopram (6) Cellulitis Status: Acute Problem Text: Patient is started on clindamycin by mouth by [facility] orthopedic Wound is dry and clean with no indication for cellulitis per se, but there are 2 areas which have dressing on her left lower exudate close to suture line which might be infected. Continue present care Plan/VTE VTE Prophylaxis Ordered?: Yes VS, I&O, 24H, Fishbone Vital Signs/I&O Vital Signs Date Time Temp Pulse Resp B/P (MAP) Pulse Ox O2 Delivery O2 Flow Rate FiO2 08/09/19 09:09 18 Room Air 08/09/19 05:42 97.3 52 121/63 (82) 96 I&O- Last 24 Hours up to 6 AM 08/09/19 06:00 Intake Total 2060 ml Output Total 1725 ml Balance 335 ml RHEA HYMAN MD Aug 09, 2019 10:57
[2019-08-09 14:00] VITALS: BP 125/63
--- NOTE | 2019-08-09 14:31 | IPN ---
DATE OF SERVICE: 08/09/2019 This patient is approximately 2 and 3 weeks status post bilateral open tibia and pilon fracture. Underwent irrigation and debridement, external fixation of the right, independent of the left. We have been monitoring him for his wounds at this point. The patient denies any fevers, chills, and continually improving. He has been out to have physical therapy, and his pain is controlled. Vital signs are stable. The patient is awake, alert, and oriented, well dressed, appropriate affect. Breathing unlabored on room air. Right lower extremity incisions are clean, dry, and intact. Mild area of skin necrosis that is continually improving on the distal ankle. His ankle range of motion is improving. His sensation and motor distally is intact and improving. Posterior tibial pulses 2+, regular rate. Left lower extremity: The incisions are clean, dry, and intact. The left medial area has some area of necrosis but is significantly improved compared to comparison a week ago and is able to wiggle his toes and move his ankle with improved ability. Sensation is intact to light touch. At this point, the patient is approximately 2 and 3 weeks out from his bilateral lower extremity surgeries. He may continue being touchdown weightbearing right lower extremity, weightbearing as tolerated left lower extremity and local dressings for the areas of necrosis. However, they are continually improved. Continue the antibiotics for a total of 2 weeks. However, we may remove all sutures from bilateral lower extremities at this point. The patient may followup as an outpatient. We will advance his right lower extremity weightbearing most likely around the 6-week marker. From orthopedic standpoint, he is stable for discharge.
[2019-08-09] MEDS: SODIUM CHLORIDE 0.9% INJ 10 ML SYR IV PRN (14:37)
[2019-08-09] MEDS: MORPHINE 30 MG SA TAB PO SCH (20:11)
[2019-08-09 22:00] VITALS: BP 120/78
[2019-08-10] MEDS: diphenhydrAMINE INJ 50MG/ML VIAL (J1200) IV PRN ×5 (02:45→20:14)
[2019-08-10] MEDS: SODIUM CHLORIDE 0.9% INJ 10 ML SYR IV SCH ×2 (05:53→17:50)
[2019-08-10] MEDS: CLINDAMYCIN 150 MG CAP PO SCH ×3 (05:53→22:29)
[2019-08-10] MEDS: MORPHINE 30 MG TAB **MSIR PO PRN ×3 (05:54→20:17)
[2019-08-10 06:00] VITALS: BP 128/52
[2019-08-10 07:02] LABS: BASO # 0.1 10^3/uL (0.0-0.2); BASO % 0.8 % (0.0-1.0); EOS # 0.3 10^3/uL (0.0-0.5); EOS % 4.8 % (0.0-3.0); HEMATOCRIT 35.1 % (42.0-52.0); HEMOGLOBIN 10.8 g/dl (13.5-17.5); LYMPH % 33.7 % (24.0-44.0); MEAN CORPUSCULAR HGB CONC 30.8 g/dl (32.0-36.5); MEAN CORPUSCULAR VOLUME 94.1 fl (80.0-96.0); MONO # 0.6 10^3/uL (0.0-0.8); MONO % 10.1 % (0.0-5.0); NEUTROPHILS % 50.1 % (36.0-66.0); PLATELET COUNT, AUTOMATED 256 10^3/uL (150-450); RED BLOOD COUNT 3.73 10^6/uL (4.30-6.10); WHITE BLOOD COUNT 6.1 10^3/uL (4.0-10.0)
[2019-08-10 07:35] LABS: ALBUMIN 2.9 GM/DL (3.2-5.2); ALT/SGPT 37 U/L (12-78); BILIRUBIN,TOTAL 0.3 MG/DL (0.2-1.0); BLOOD UREA NITROGEN 10 MG/DL (7-18); CALCIUM LEVEL 9.1 MG/DL (8.5-10.1); CARBON DIOXIDE LEVEL 33 MEQ/L (21-32); CHLORIDE LEVEL 104 MEQ/L (98-107); CREATININE FOR GFR 0.92 MG/DL (0.70-1.30); GLOMERULAR FILTRATION RATE > 60.0 (>60); GLUCOSE, FASTING 79 MG/DL (70-100); POTASSIUM SERUM 3.9 MEQ/L (3.5-5.1); SODIUM LEVEL 141 MEQ/L (136-145); TOTAL PROTEIN 6.4 GM/DL (6.4-8.2)
[2019-08-10] MEDS: MIRALAX *UNIT DOSE* 17GM PACKET PO SCH (09:00)
[2019-08-10] MEDS: MOM 30ML SUSPENSION UDC PO SCH (09:00)
[2019-08-10] MEDS: ENOXAPARIN 30 MG/0.3 ML SYR (J1650) SC SCH ×2 (09:49→22:30)
[2019-08-10] MEDS: SENOKOT S TAB PO SCH ×2 (09:49→22:29)
[2019-08-10] MEDS: FOLIC ACID 1 MG TAB PO SCH (09:50)
[2019-08-10] MEDS: NICOTINE 21MG/24HR 1 EA TRANSDERMAL TD SCH (09:50)
[2019-08-10] MEDS: MULTIVITAMINS/MINERALS THERAP 1 TAB PO SCH (09:50)
[2019-08-10] MEDS: GABAPENTIN 300 MG CAP PO SCH ×4 (09:50→22:28)
[2019-08-10] MEDS: ESCITALOPRAM OXALATE 10 MG TAB (LEXAPRO) PO SCH (09:50)
[2019-08-10] MEDS: THIAMINE 100 MG TAB PO SCH (09:50)
[2019-08-10] MEDS: METHADONE 10 MG TAB (S0109) PO SCH (09:51)
[2019-08-10] MEDS: MORPHINE 30 MG SA TAB PO SCH ×2 (09:52→22:27)
[2019-08-10] MEDS: SODIUM CHLORIDE 0.9% INJ 10 ML SYR IV PRN ×2 (11:16→20:14)
--- NOTE | 2019-08-10 13:06 | IPNPDOC ---
Subjective Date Seen The patient was seen on 08/10/19. Subjective Chief Complaint/HPI Patient feeling much better participating in physical therapy seen by Dr. Perez yesterday. scheduled for his sutures and nagi to come out today General: Denies: ROS Unobtainable, Chills, Night Sweats, Fatigue, Malaise, Normal Appetite, Other Symptoms Constitutional: Denies: Chills, Fever, Malaise, Night Sweats, Weakness, Fatigue, Weight Loss, Lethargy, Other Pulmonary: Denies: Dyspnea, Cough, Pleuritic Chest Pain, Other Symptoms Cardiovascular: Denies: Chest Pain, Palpitations, Orthopnea, Paroxysmal Noc. Dyspnea, Edema, Lt Headedness, Other Symptoms Gastrointestinal: Denies: Nausea, Vomiting, Abdominal Pain, Diarrhea, C onstipation, Melena, Hematochezia, Other Symptoms Musculoskeletal: Denies: Neck Pain, Back Pain, Shoulder Pain, Arm Pain, Hand Pain, Leg Pain, Foot Pain, Joint Pain, Muscle Pain, Spasms, Other Symptoms Neurological: Denies: Weakness, Numbness, Incoordination, Change in speech, Confusion, Seizures, Other Symptoms Objective Physical Examination Neck Exam: Positive: Supple Chest Exam: Positive: Clear to auscultation, Normal air movement Heart Exam: Positive: Rate Normal, Normal S1, Normal S2 Abdomen Exam: Positive: Normal bowel sounds, Soft, Tenderness Extremity Exam: Positive: Other (incision line on both legs looks nice and clean with with the healing. Sutures in place. Dressing on two the left lower extremity) Skin Exam: Positive: Nl turgor and temperature Assessment /Plan Problems (1) Tibia/fibula fracture, shaft Status: Acute Problem Text: Bilateral lower extremity tib-fib fractures - 2/2 crush injury from [employer] truck Left open fibula and tibia shaft fractures, grade 2, Right open extraarticular pilon fracture and fibula shaft fracture, grade 2. , Status post Incision and drainage open tibia and fibula shaft fracture on the left and left intramedullary nailing, left wound negative pressure wound therapy Status post Incision and drainage open tibia and fibula fracture on the right wi th extraarticular pilon and right uniplane Ex-Fix Status post surgical repair, bilateral tib-fib fracture by Dr. 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 Perez continue physical therapy. Mission and sutures to be removed today Awaiting placement in subacute facility for short-term rehabilitation (2) Alcohol abuse Status: Acute Problem Text: Patient presented with alcohol intoxication on admission There was no evidence of withdrawal during his stay in the hospital Continue thiamine, folate and multivitamin. (3) Constipation Status: Chronic Problem Text: Patient takes methadone at home The patient most likely secondary to opiates Symptomatic care (4) Peripheral neuropathy Status: Chronic Problem Text: Continue gabapentin (5) Mood disorder Status: Chronic Problem Text: Continue Escitalopram (6) Cellulitis Status: Acute Problem Text: Patient is started on clindamycin again by Susana khoury. Wound is dry and clean with no indication for cellulitis per se, but there are 2 areas which have dressing on her left lower exudate close to suture line which might be infected. Continue present care Plan/VTE VTE Prophylaxis Ordered?: Yes VS, I&O, 24H, Fishbone Vital Signs/I&O Vital Signs Date Time Temp Pulse Resp B/P (MAP) Pulse Ox O2 Delivery O2 Flow Rate FiO2 08/10/19 09:52 20 Room Air 08/10/19 06:00 65 128/52 (77) 97 08/09/19 22:00 96.8 I&O- Last 24 Hours up to 6 AM 08/10/19 06:00 Intake Total 1560 ml Output Total 1500 ml Balance 60 ml Laboratory Data 24H LABS Laboratory Tests 2 08/10/19 06:46: Immature Granulocyte % (Auto) 0.5, Neutrophils (%) (Auto) 50.1, Lymphocytes (%) (Auto) 33.7, Monocytes (%) (Auto) 10.1H, Eosinophils (%) (Auto) 4.8H, Basophils (%) (Auto) 0.8, Neutrophils # (Auto) 3.0, Lymphocytes # (Auto) 2.0, Monocytes # (Auto) 0.6, Eosinophils # (Auto) 0.3, Basophils # (Auto) 0.1, Nucleated Red Blood Cells % (auto) 0.0, Anion Gap 4L, Glomerular Filtration Rate > 60.0, Calcium Level 9.1, Total Bilirubin 0.3, Aspartate Amino Transf (AST/SGOT) 22, Alanine Aminotransferase (ALT/SGPT) 37, Alkaline Phosphatase 94, Total Protein 6.4, Albumin 2.9L, Albumin/Globulin Ratio 0.83L CBC/BMP Laboratory Tests 08/10/19 06:46 RHEA HYMAN MD Aug 10, 2019 13:06
[2019-08-10 14:00] VITALS: BP 127/67
[2019-08-10 22:00] VITALS: BP 123/65
[2019-08-11] MEDS: diphenhydrAMINE INJ 50MG/ML VIAL (J1200) IV PRN ×4 (03:19→16:25)
[2019-08-11] MEDS: MORPHINE 30 MG TAB **MSIR PO PRN ×4 (03:19→22:32)
[2019-08-11] MEDS: SODIUM CHLORIDE 0.9% INJ 10 ML SYR IV PRN (03:20)
[2019-08-11] MEDS: CLINDAMYCIN 150 MG CAP PO SCH ×3 (05:28→22:31)
[2019-08-11] MEDS: SODIUM CHLORIDE 0.9% INJ 10 ML SYR IV SCH ×2 (05:29→16:26)
[2019-08-11 06:00] VITALS: BP 120/55
[2019-08-11] MEDS: MIRALAX *UNIT DOSE* 17GM PACKET PO SCH (09:00)
[2019-08-11] MEDS: MOM 30ML SUSPENSION UDC PO SCH (09:00)
[2019-08-11] MEDS: NICOTINE 21MG/24HR 1 EA TRANSDERMAL TD SCH (09:06)
[2019-08-11] MEDS: GABAPENTIN 300 MG CAP PO SCH ×4 (09:06→20:26)
[2019-08-11] MEDS: THIAMINE 100 MG TAB PO SCH (09:07)
[2019-08-11] MEDS: FOLIC ACID 1 MG TAB PO SCH (09:07)
[2019-08-11] MEDS: SENOKOT S TAB PO SCH ×2 (09:07→20:27)
[2019-08-11] MEDS: MULTIVITAMINS/MINERALS THERAP 1 TAB PO SCH (09:07)
[2019-08-11] MEDS: METHADONE 10 MG TAB (S0109) PO SCH (09:07)
[2019-08-11] MEDS: MORPHINE 30 MG SA TAB PO SCH ×2 (09:08→20:27)
[2019-08-11] MEDS: ESCITALOPRAM OXALATE 10 MG TAB (LEXAPRO) PO SCH (09:08)
[2019-08-11] MEDS: ENOXAPARIN 30 MG/0.3 ML SYR (J1650) SC SCH ×2 (09:08→20:27)
--- NOTE | 2019-08-11 11:35 | IPNPDOC ---
Subjective Date Seen The patient was seen on 08/11/19. Subjective Chief Complaint/HPI Patient offers no new complaints participating in physical therapy General: Denies: ROS Unobtainable, Chills, Night Sweats, Fatigue, Malaise, Normal Appetite, Other Symptoms Constitutional: Denies: Chills, Fever, Malaise, Night Sweats, Weakness, Fatigue, Weight Loss, Lethargy, Other Pulmonary: Denies: Dyspnea, Cough, Pleuritic Chest Pain, Other Symptoms Cardiovascular: Denies: Chest Pain, Palpitations, Orthopnea, Paroxysmal Noc. Dyspnea, Edema, Lt Headedness, Other Symptoms Gastrointestinal: Denies: Nausea, Vomiting, Abdominal Pain, Diarrhea, Constipation, Melena, Hematochezia, Other Symptoms Musculoskeletal: Denies: Neck Pain, Back Pain, Shoulder Pain, Arm Pain, Hand Pain, Leg Pain, Foot Pain, Joint Pain, Muscle Pain, Spasms, Other Symptoms Neurological: Denies: Weakness, Numbness, Incoordination, Change in speech, Confusion, Seizures, Other Symptoms Objective Physical Examination Neck Exam: Positive: Supple Chest Exam: Positive: Clear to auscultation, Normal air movement Heart Exam: Positive: Rate Normal, Normal S1, Normal S2 Abdomen Exam: Positive: Normal bowel sounds, Soft, Tenderness Extremity Exam: Positive: Other (incision line on both legs looks nice and clean with with the healing. Sutures in place. Dressing on two the left lower extremity) Skin Exam: Positive: Nl turgor and temperature Assessment /Plan Problems (1) Tibia/fibula fracture, shaft Status: Acute Problem Text: Bilateral lower extremity tib-fib fractures - 2/2 crush injury from [employer] truck Left open fibula and tibia shaft fractures, grade 2, Right open extraarticular pilon fracture and fibula shaft fracture, grade 2. , Status post Incision and drainage open tibia and fibula shaft fracture on the left and left intramedullary nailing, left wound negative pressure wound therapy Status post Incision and drainage open tibia and fibula fracture on the right with extraarticular pilon and right uniplane Ex-Fix Status post surgical repair, bilateral tib-fib fracture by Dr. 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 Continue long-acting and short-acting morphine sulfate as per orders is been tolerating very well Continue physical therapy Started on by mouth, Clinda by orthopedic and Joe Vaughn for possible infection left lower extremity close to suture line Increased dose of Benadryl to 50 mg IV every 4 hours when necessary for intense itching in both legs Orthopedic follow-up is appreciated Awaiting placement to subacute rehabilitation facility soon (2) Alcohol abuse Status: Acute Problem Text: Patient presented with alcohol intoxication on admission There was no evidence of withdrawal during his stay in the hospital Continue thiamine, folate and multivitamin. (3) Constipation Status: Chronic Problem Text: Patient takes methadone at home The patient most likely secondary to opiates Symptomatic care (4) Peripheral neuropathy Status: Chronic Problem Text: Continue gabapentin (5) Mood disorder Status: Chronic Problem Text: Continue Escitalopram (6) Cellulitis Status: Acute Problem Text: Patient is started on clindamycin again by [facility] orthopedic. Wound is dry and clean with no indication for cellulitis per se, but there are 2 areas which have dressing on her left lower exudate close to suture line which might be infected. Continue present care Plan/VTE VTE Prophylaxis Ordered?: Yes VS, I&O, 24H, Fishbone Vital Signs/I&O Vital Signs Date Time Temp Pulse Resp B/P (MAP) Pulse Ox O2 Delivery O2 Flow Rate FiO2 08/11/19 10:23 18 08/11/19 06:00 97.5 56 120/55 (76) 93 Room Air I&O- Last 24 Hours up to 6 AM 08/11/19 06:00 Intake Total 300 ml Output Total 550 ml Balance -250 ml RHEA HYMAN MD Aug 11, 2019 11:35
[2019-08-11 14:00] VITALS: BP 106/68
[2019-08-11 21:36] VITALS: BP 117/56
[2019-08-12] MEDS: diphenhydrAMINE INJ 50MG/ML VIAL (J1200) IV PRN ×6 (00:47→21:38)
[2019-08-12] MEDS: SODIUM CHLORIDE 0.9% INJ 10 ML SYR IV SCH ×2 (05:11→17:38)
[2019-08-12] MEDS: MORPHINE 30 MG TAB **MSIR PO PRN ×3 (05:11→17:57)
[2019-08-12] MEDS: CLINDAMYCIN 150 MG CAP PO SCH ×3 (05:12→21:37)
[2019-08-12 05:42] VITALS: BP 110/50
[2019-08-12] MEDS: MULTIVITAMINS/MINERALS THERAP 1 TAB PO SCH (08:50)
[2019-08-12] MEDS: FOLIC ACID 1 MG TAB PO SCH (08:50)
[2019-08-12] MEDS: THIAMINE 100 MG TAB PO SCH (08:50)
[2019-08-12] MEDS: GABAPENTIN 300 MG CAP PO SCH ×4 (08:50→21:37)
[2019-08-12] MEDS: SENOKOT S TAB PO SCH ×2 (08:51→21:00)
[2019-08-12] MEDS: ESCITALOPRAM OXALATE 10 MG TAB (LEXAPRO) PO SCH (08:51)
[2019-08-12] MEDS: NICOTINE 21MG/24HR 1 EA TRANSDERMAL TD SCH (08:51)
[2019-08-12] MEDS: METHADONE 10 MG TAB (S0109) PO SCH (08:53)
[2019-08-12] MEDS: MORPHINE 30 MG SA TAB PO SCH ×2 (08:53→21:38)
[2019-08-12] MEDS: MOM 30ML SUSPENSION UDC PO SCH (08:54)
[2019-08-12] MEDS: MIRALAX *UNIT DOSE* 17GM PACKET PO SCH (08:54)
[2019-08-12] MEDS: ENOXAPARIN 30 MG/0.3 ML SYR (J1650) SC SCH ×2 (08:55→21:38)
--- NOTE | 2019-08-12 10:49 | IPNPDOC ---
Subjective Date Seen The patient was seen on 08/12/19. Subjective Chief Complaint/HPI Patient offers no new complaints as been participating in physical therapy General: Denies: ROS Unobtainable, Chills, Night Sweats, Fatigue, Malaise, Normal Appetite, Other Symptoms Constitutional: Denies: Chills, Fever, Malaise, Night Sweats, Weakness, Fatigue, Weight Loss, Lethargy, Other Pulmonary: Denies: Dyspnea, Cough, Pleuritic Chest Pain, Other Symptoms Cardiovascular: Denies: Chest Pain, Palpitations, Orthopnea, Paroxysmal Noc. Dyspnea, Edema, Lt Headedness, Other Symptoms Gastrointestinal: Denies: Nausea, Vomiting, Abdominal Pain, Diarrhea, Constipation, Melena, Hematochezia, Other Symptoms Musculoskeletal: Denies: Neck Pain, Back Pain, Shoulder Pain, Arm Pain, Hand Pain, Leg Pain, Foot Pain, Joint Pain, Muscle Pain, Spasms, Other Symptoms Neurological: Denies: Weakness, Numbness, Incoordination, Change in speech, Confusion, Seizures, Other Symptoms Objective Physical Examination Neck Exam: Positive: Supple Chest Exam: Positive: Clear to auscultation, Normal air movement Heart Exam: Positive: Rate Normal, Normal S1, Normal S2 Abdomen Exam: Positive: Normal bowel sounds, Soft, Tenderness Extremity Exam: Positive: Other (incision line on both legs looks nice and clean with with the healing. Sutures in place. Dressing on two the left lower extremity) Skin Exam: Positive: Nl turgor and temperature Assessment /Plan Problems (1) Tibia/fibula fracture, shaft Status: Acute Problem Text: Bilateral lower extremity tib-fib fractures - 2/2 crush injury from [employer] truck Left open fibula and tibia shaft fractures, grade 2, Right open extraarticular pilon fracture and fibula shaft fracture, grade 2. , Status post Incision and drainage open tibia and fibula shaft fracture on the left and left intramedullary nailing, left wound negative pressure wound therapy Status post Incision and drainage open tibia and fibula fracture on the right with extraarticular pilon and right uniplane Ex-Fix Status post surgical repair, bilateral tib-fib fracture by Dr. 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 Distal no bed available for him at outpatient facility. Probably end up going home. If he continues physical therapy and patient (2) Alcohol abuse Status: Acute Problem Text: Patient presented with alcohol intoxication on admission There was no evidence of withdrawal during his stay in the hospital Continue thiamine, folate and multivitamin. (3) Constipation Status: Chronic Problem Text: Patient takes methadone at home The patient most likely secondary to opiates Symptomatic care (4) Peripheral neuropathy Status: Chronic Problem Text: Continue gabapentin (5) Mood disorder Status: Chronic Problem Text: Continue Escitalopram (6) Cellulitis Status: Acute Problem Text: Patient is started on clindamycin again by Susana khoury. Wound is dry and clean with no indication for cellulitis per se, but there are 2 areas which have dressing on her left lower exudate close to suture line which might be infected. Continue present care Plan/VTE VTE Prophylaxis Ordered?: Yes VS, I&O, 24H, Fishbone Vital Signs/I&O Vital Signs Date Time Temp Pulse Resp B/P (MAP) Pulse Ox O2 Delivery O2 Flow Rate FiO2 08/12/19 08:53 18 Room Air 08/12/19 05:42 96.0 59 110/50 (70) 96 I&O- Last 24 Hours up to 6 AM 08/12/19 06:00 Intake Total 3210 ml Output Total 1650 ml Balance 1560 ml RHEA HYMAN MD Aug 12, 2019 10:49
[2019-08-12] MEDS: SODIUM CHLORIDE 0.9% INJ 10 ML SYR IV PRN (13:17)
[2019-08-12 14:45] VITALS: BP 117/67
[2019-08-12 22:16] VITALS: BP 102/52
[2019-08-13] MEDS: diphenhydrAMINE INJ 50MG/ML VIAL (J1200) IV PRN ×6 (02:02→22:46)
[2019-08-13] MEDS: MORPHINE 30 MG TAB **MSIR PO PRN ×3 (02:03→17:56)
[2019-08-13] MEDS: CLINDAMYCIN 150 MG CAP PO SCH ×3 (06:22→22:17)
[2019-08-13] MEDS: SODIUM CHLORIDE 0.9% INJ 10 ML SYR IV SCH ×2 (06:23→17:28)
[2019-08-13 06:51] VITALS: BP 115/57
[2019-08-13] MEDS: MOM 30ML SUSPENSION UDC PO SCH (09:00)
[2019-08-13] MEDS: MIRALAX *UNIT DOSE* 17GM PACKET PO SCH (09:00)
[2019-08-13] MEDS: SENOKOT S TAB PO SCH ×2 (09:23→22:18)
[2019-08-13] MEDS: ENOXAPARIN 30 MG/0.3 ML SYR (J1650) SC SCH ×2 (09:23→22:18)
[2019-08-13] MEDS: MULTIVITAMINS/MINERALS THERAP 1 TAB PO SCH (09:24)
[2019-08-13] MEDS: THIAMINE 100 MG TAB PO SCH (09:24)
[2019-08-13] MEDS: MORPHINE 30 MG SA TAB PO SCH ×2 (09:24→22:18)
[2019-08-13] MEDS: GABAPENTIN 300 MG CAP PO SCH ×4 (09:24→22:18)
[2019-08-13] MEDS: ESCITALOPRAM OXALATE 10 MG TAB (LEXAPRO) PO SCH (09:25)
[2019-08-13] MEDS: NICOTINE 21MG/24HR 1 EA TRANSDERMAL TD SCH (09:25)
[2019-08-13] MEDS: FOLIC ACID 1 MG TAB PO SCH (09:25)
[2019-08-13] MEDS: METHADONE 10 MG TAB (S0109) PO SCH (09:26)
--- NOTE | 2019-08-13 10:41 | IPNPDOC ---
Subjective Date Seen The patient was seen on 08/13/19. Subjective Chief Complaint/HPI Patient sitting by the bedside participating in physical therapy comfortable with present care General: Denies: ROS Unobtainable, Chills, Night Sweats, Fatigue, Malaise, Normal Appetite, Other Symptoms ENT: Denies: Head Aches, Ear Pain, Dysphagia, Sinus Congestion, Post Nasal Drip, Sore Throat, Epistaxis, Other Symptoms Skin: Denies: Rash, Lesions, Jaundice, Bruising, Itching, Dry, Breakdown, Nail Changes, Other Pulmonary: Denies: Dyspnea, Cough, Pleuritic Chest Pain, Other Symptoms Cardiovascular: Denies: Chest Pain, Palpitations, Orthopnea, Paroxysmal Noc. Dyspnea, Edema, Lt Headedness, Other Symptoms Gastrointestinal: Denies: Nausea, Vomiting, Abdominal Pain, Diarrhea, Constipation, Melena, Hematochezia, Other Symptoms Genitourinary: Denies: Dysuria, Frequency, Incontinence, Hematuria, Retention, Other Symptoms Musculoskeletal: Denies: Neck Pain, Back Pain, Shoulder Pain, Arm Pain, Hand Pain, Leg Pain, Foot Pain, Joint Pain, Muscle Pain, Spasms, Other Symptoms Neurological: Denies: Weakness, Numbness, Incoordination, Change in speech, Confusion, Seizures, Other Symptoms Objective Physical Examination Neck Exam: Positive: Supple Chest Exam: Positive: Clear to auscultation, Normal air movement Heart Exam: Positive: Rate Normal, Normal S1, Normal S2 Abdomen Exam: Positive: Normal bowel sounds, Soft, Tenderness Extremity Exam: Positive: Other (incision line on both legs looks nice and clean with with the healing. Sutures in place. Dressing on two the left lower extremity) Skin Exam: Positive: Nl turgor and temperature Assessment /Plan Problems (1) Tibia/fibula fracture, shaft Status: Acute Problem Text: Bilateral lower extremity tib-fib fractures - 2/2 crush injury from [employer] truck Left open fibula and tibia shaft fractures, grade 2, Right open extraarticular pilon fracture and fibula shaft fracture, grade 2. , Status post Incision and drainage open tibia and fibula shaft fracture on the left and left intramedullary nailing, left wound negative pressure wound therapy Status post Incision and drainage open tibia and fibula fracture on the right with extraarticular pilon and right uniplane Ex-Fix Status post surgical repair, bilateral tib-fib fracture by Dr. 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 Continue long-acting and short-acting morphine sulfate as per orders is been tolerating very well Continue physical therapy Started on by mouth, Clinda by orthopedic and Joe Vaughn for possible infection lef t lower extremity close to suture line Increased dose of Benadryl to 50 mg IV every 4 hours when necessary for intense itching in both legs Orthopedic follow-up is appreciated Continue physical therapy Awaiting outpatient subacute rehabilitation facility bed availability (2) Alcohol abuse Status: Acute Problem Text: Patient presented with alcohol intoxication on admission There was no evidence of withdrawal during his stay in the hospital Continue thiamine, folate and multivitamin. (3) Constipation Status: Chronic Problem Text: Patient takes methadone at home The patient most likely secondary to opiates Symptomatic care (4) Peripheral neuropathy Status: Chronic Problem Text: Continue gabapentin (5) Mood disorder Status: Chronic Problem Text: Continue Escitalopram (6) Cellulitis Status: Acute Problem Text: Patient is started on clindamycin again by Susana khoury. Wound is dry and clean with no indication for cellulitis per se, but there are 2 areas which have dressing on her left lower exudate close to suture line which might be infected. Continue present care Plan/VTE VTE Prophylaxis Ordered?: Yes VS, I&O, 24H, Fishbone Vital Signs/I&O Vital Signs Date Time Temp Pulse Resp B/P (MAP) Pulse Ox O2 Delivery O2 Flow Rate FiO2 08/13/19 09:24 18 Room Air 08/13/19 06:51 96.9 54 115/57 (76) 96 I&O- Last 24 Hours up to 6 AM 08/13/19 06:00 Intake Total 840 ml Output Total 2175 ml Balance -1335 ml RHEA HYMAN MD Aug 13, 2019 10:41
[2019-08-13 14:34] VITALS: BP 114/56
[2019-08-13 22:12] VITALS: BP 112/57
[2019-08-13] MEDS: SANTYL OINT 30GM TOP SCH (22:19)
[2019-08-14] MEDS: MORPHINE 30 MG TAB **MSIR PO PRN ×4 (00:42→23:13)
[2019-08-14] MEDS: diphenhydrAMINE INJ 50MG/ML VIAL (J1200) IV PRN ×6 (02:53→23:13)
[2019-08-14] MEDS: SODIUM CHLORIDE 0.9% INJ 10 ML SYR IV SCH ×2 (02:53→17:11)
[2019-08-14] MEDS: CLINDAMYCIN 150 MG CAP PO SCH ×3 (05:43→21:10)
[2019-08-14 06:00] VITALS: BP 119/53
[2019-08-14] MEDS: MOM 30ML SUSPENSION UDC PO SCH (09:00)
[2019-08-14] MEDS: MIRALAX *UNIT DOSE* 17GM PACKET PO SCH (09:00)
[2019-08-14] MEDS: ENOXAPARIN 30 MG/0.3 ML SYR (J1650) SC SCH ×2 (09:01→21:12)
[2019-08-14] MEDS: GABAPENTIN 300 MG CAP PO SCH ×4 (09:02→21:10)
[2019-08-14] MEDS: MORPHINE 30 MG SA TAB PO SCH ×2 (09:02→21:11)
[2019-08-14] MEDS: THIAMINE 100 MG TAB PO SCH (09:02)
[2019-08-14] MEDS: NICOTINE 21MG/24HR 1 EA TRANSDERMAL TD SCH (09:02)
[2019-08-14] MEDS: MULTIVITAMINS/MINERALS THERAP 1 TAB PO SCH (09:03)
[2019-08-14] MEDS: ESCITALOPRAM OXALATE 10 MG TAB (LEXAPRO) PO SCH (09:03)
[2019-08-14] MEDS: METHADONE 10 MG TAB (S0109) PO SCH (09:03)
[2019-08-14] MEDS: FOLIC ACID 1 MG TAB PO SCH (09:03)
[2019-08-14] MEDS: SENOKOT S TAB PO SCH ×2 (09:03→21:11)
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
[2019-08-14 14:00] VITALS: BP 131/64
[2019-08-14] MEDS: SODIUM CHLORIDE 0.9% INJ 10 ML SYR IV PRN ×3 (15:03→23:13)
[2019-08-14] MEDS: SANTYL OINT 30GM TOP SCH (21:12)
[2019-08-14 22:00] VITALS: BP 109/52
[2019-08-15] MEDS: diphenhydrAMINE INJ 50MG/ML VIAL (J1200) IV PRN ×5 (03:08→19:41)
[2019-08-15] MEDS: SODIUM CHLORIDE 0.9% INJ 10 ML SYR IV SCH ×2 (03:09→18:31)
[2019-08-15 06:00] VITALS: BP 117/53
[2019-08-15] MEDS: CLINDAMYCIN 150 MG CAP PO SCH ×3 (06:18→21:48)
[2019-08-15] MEDS: MORPHINE 30 MG TAB **MSIR PO PRN ×3 (06:19→18:30)
[2019-08-15 07:03] LABS: BASO % 0.7 % (0.0-1.0); EOS # 0.3 10^3/uL (0.0-0.5); EOS % 5.2 % (0.0-3.0); HEMATOCRIT 34.9 % (42.0-52.0); HEMOGLOBIN 10.9 g/dl (13.5-17.5); LYMPH % 34.8 % (24.0-44.0); MEAN CORPUSCULAR HEMOGLOBIN 28.5 pg (27.0-33.0); MEAN CORPUSCULAR HGB CONC 31.2 g/dl (32.0-36.5); MEAN CORPUSCULAR VOLUME 91.4 fl (80.0-96.0); MONO # 0.5 10^3/uL (0.0-0.8); MONO % 9.1 % (0.0-5.0); NEUTROPHILS # 2.9 10^3/uL (1.5-8.5); NEUTROPHILS % 49.9 % (36.0-66.0); PLATELET COUNT, AUTOMATED 237 10^3/uL (150-450); RED BLOOD COUNT 3.82 10^6/uL (4.30-6.10); WHITE BLOOD COUNT 5.7 10^3/uL (4.0-10.0)
[2019-08-15] MEDS: SODIUM CHLORIDE 0.9% INJ 10 ML SYR IV PRN (07:20)
[2019-08-15 07:22] LABS: ALBUMIN 3.1 GM/DL (3.2-5.2); ALT/SGPT 43 U/L (12-78); BILIRUBIN,TOTAL 0.3 MG/DL (0.2-1.0); BLOOD UREA NITROGEN 12 MG/DL (7-18); CALCIUM LEVEL 9.3 MG/DL (8.5-10.1); CARBON DIOXIDE LEVEL 30 MEQ/L (21-32); CHLORIDE LEVEL 104 MEQ/L (98-107); CREATININE FOR GFR 0.97 MG/DL (0.70-1.30); GLOMERULAR FILTRATION RATE > 60.0 (>60); GLUCOSE, FASTING 115 MG/DL (70-100); SODIUM LEVEL 139 MEQ/L (136-145); TOTAL PROTEIN 6.6 GM/DL (6.4-8.2)
[2019-08-15] MEDS: MIRALAX *UNIT DOSE* 17GM PACKET PO SCH (09:00)
[2019-08-15] MEDS: MOM 30ML SUSPENSION UDC PO SCH (09:00)
[2019-08-15] MEDS: GABAPENTIN 300 MG CAP PO SCH ×4 (09:48→21:47)
[2019-08-15] MEDS: THIAMINE 100 MG TAB PO SCH (09:48)
[2019-08-15] MEDS: METHADONE 10 MG TAB (S0109) PO SCH (09:48)
[2019-08-15] MEDS: ESCITALOPRAM OXALATE 10 MG TAB (LEXAPRO) PO SCH (09:48)
[2019-08-15] MEDS: SENOKOT S TAB PO SCH ×2 (09:49→21:48)
[2019-08-15] MEDS: ENOXAPARIN 30 MG/0.3 ML SYR (J1650) SC SCH ×2 (09:50→21:47)
[2019-08-15] MEDS: MULTIVITAMINS/MINERALS THERAP 1 TAB PO SCH (09:50)
[2019-08-15] MEDS: MORPHINE 30 MG SA TAB PO SCH ×2 (09:50→21:47)
[2019-08-15] MEDS: FOLIC ACID 1 MG TAB PO SCH (09:50)
[2019-08-15] MEDS: NICOTINE 21MG/24HR 1 EA TRANSDERMAL TD SCH (09:51)
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
[2019-08-15 13:28] VITALS: BP 113/64
[2019-08-15] MEDS: SANTYL OINT 30GM TOP SCH (21:50)
[2019-08-15 22:00] VITALS: BP 127/66
[2019-08-16] MEDS: diphenhydrAMINE INJ 50MG/ML VIAL (J1200) IV PRN ×5 (00:37→21:24)
[2019-08-16] MEDS: MORPHINE 30 MG TAB **MSIR PO PRN ×4 (00:37→20:23)
[2019-08-16] MEDS: SODIUM CHLORIDE 0.9% INJ 10 ML SYR IV SCH ×2 (00:38→17:03)
[2019-08-16 06:00] VITALS: BP 120/61
[2019-08-16] MEDS: CLINDAMYCIN 150 MG CAP PO SCH ×3 (06:48→21:25)
[2019-08-16] MEDS: MIRALAX *UNIT DOSE* 17GM PACKET PO SCH (09:00)
[2019-08-16] MEDS: MOM 30ML SUSPENSION UDC PO SCH (09:00)
[2019-08-16] MEDS: METHADONE 10 MG TAB (S0109) PO SCH (09:17)
[2019-08-16] MEDS: ENOXAPARIN 30 MG/0.3 ML SYR (J1650) SC SCH ×2 (09:17→20:24)
[2019-08-16] MEDS: THIAMINE 100 MG TAB PO SCH (09:18)
[2019-08-16] MEDS: GABAPENTIN 300 MG CAP PO SCH ×4 (09:18→20:24)
[2019-08-16] MEDS: NICOTINE 21MG/24HR 1 EA TRANSDERMAL TD SCH (09:18)
[2019-08-16] MEDS: SENOKOT S TAB PO SCH ×2 (09:18→20:24)
[2019-08-16] MEDS: FOLIC ACID 1 MG TAB PO SCH (09:18)
[2019-08-16] MEDS: ESCITALOPRAM OXALATE 10 MG TAB (LEXAPRO) PO SCH (09:18)
[2019-08-16] MEDS: MULTIVITAMINS/MINERALS THERAP 1 TAB PO SCH (09:18)
[2019-08-16] MEDS: MORPHINE 30 MG SA TAB PO SCH ×2 (09:19→21:25)
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
[2019-08-16] MEDS: SANTYL OINT 30GM TOP SCH (17:03)
[2019-08-16 21:15] VITALS: BP 112/60
[2019-08-17] MEDS: diphenhydrAMINE INJ 50MG/ML VIAL (J1200) IV PRN ×5 (02:14→23:50)
[2019-08-17 05:56] LABS: HEMATOCRIT 33.3 % (42.0-52.0); HEMOGLOBIN 10.6 g/dl (13.5-17.5); MEAN CORPUSCULAR HGB CONC 31.8 g/dl (32.0-36.5); MEAN CORPUSCULAR VOLUME 91.2 fl (80.0-96.0); PLATELET COUNT, AUTOMATED 232 10^3/uL (150-450); RED BLOOD COUNT 3.65 10^6/uL (4.30-6.10); WHITE BLOOD COUNT 5.3 10^3/uL (4.0-10.0)
[2019-08-17 06:08] VITALS: BP 127/58
[2019-08-17 06:17] LABS: BLOOD UREA NITROGEN 12 MG/DL (7-18); CARBON DIOXIDE LEVEL 32 MEQ/L (21-32); CHLORIDE LEVEL 105 MEQ/L (98-107); CREATININE FOR GFR 1.02 MG/DL (0.70-1.30); GLOMERULAR FILTRATION RATE > 60.0 (>60); GLUCOSE, FASTING 110 MG/DL (70-100); POTASSIUM SERUM 3.9 MEQ/L (3.5-5.1); SODIUM LEVEL 140 MEQ/L (136-145)
[2019-08-17] MEDS: SODIUM CHLORIDE 0.9% INJ 10 ML SYR IV SCH ×2 (06:41→17:00)
[2019-08-17] MEDS: CLINDAMYCIN 150 MG CAP PO SCH ×3 (06:41→21:46)
[2019-08-17] MEDS: NICOTINE 21MG/24HR 1 EA TRANSDERMAL TD SCH (08:39)
[2019-08-17] MEDS: ENOXAPARIN 30 MG/0.3 ML SYR (J1650) SC SCH ×2 (08:39→21:47)
[2019-08-17] MEDS: METHADONE 10 MG TAB (S0109) PO SCH (08:40)
[2019-08-17] MEDS: GABAPENTIN 300 MG CAP PO SCH ×4 (08:40→21:46)
[2019-08-17] MEDS: THIAMINE 100 MG TAB PO SCH (08:41)
[2019-08-17] MEDS: MORPHINE 30 MG SA TAB PO SCH ×2 (08:41→21:45)
[2019-08-17] MEDS: FOLIC ACID 1 MG TAB PO SCH (08:41)
[2019-08-17] MEDS: ESCITALOPRAM OXALATE 10 MG TAB (LEXAPRO) PO SCH (08:41)
[2019-08-17] MEDS: MIRALAX *UNIT DOSE* 17GM PACKET PO SCH (08:42)
[2019-08-17] MEDS: MULTIVITAMINS/MINERALS THERAP 1 TAB PO SCH (08:42)
[2019-08-17] MEDS: SENOKOT S TAB PO SCH ×2 (08:42→21:46)
[2019-08-17] MEDS: MOM 30ML SUSPENSION UDC PO SCH (08:42)
[2019-08-17] MEDS: MORPHINE 30 MG TAB **MSIR PO PRN ×3 (10:49→23:49)
[2019-08-17 14:00] VITALS: BP 112/58
[2019-08-17] MEDS: SODIUM CHLORIDE 0.9% INJ 10 ML SYR IV PRN (16:53)
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
[2019-08-17 19:57] VITALS: BP 131/60
[2019-08-17] MEDS: SANTYL OINT 30GM TOP SCH (21:00)
[2019-08-18] MEDS: MORPHINE 30 MG TAB **MSIR PO PRN ×3 (05:59→18:14)
[2019-08-18 06:00] VITALS: BP 106/47
[2019-08-18] MEDS: CLINDAMYCIN 150 MG CAP PO SCH ×2 (06:00→13:17)
[2019-08-18] MEDS: diphenhydrAMINE INJ 50MG/ML VIAL (J1200) IV PRN ×3 (06:00→18:13)
[2019-08-18] MEDS: SODIUM CHLORIDE 0.9% INJ 10 ML SYR IV PRN ×2 (06:00→12:04)
[2019-08-18] MEDS: SODIUM CHLORIDE 0.9% INJ 10 ML SYR IV SCH ×2 (06:01→18:15)
[2019-08-18] MEDS: NICOTINE 21MG/24HR 1 EA TRANSDERMAL TD SCH (08:48)
[2019-08-18] MEDS: ESCITALOPRAM OXALATE 10 MG TAB (LEXAPRO) PO SCH (08:49)
[2019-08-18] MEDS: ENOXAPARIN 30 MG/0.3 ML SYR (J1650) SC SCH ×2 (08:49→21:42)
[2019-08-18] MEDS: METHADONE 10 MG TAB (S0109) PO SCH (08:49)
[2019-08-18] MEDS: THIAMINE 100 MG TAB PO SCH (08:49)
[2019-08-18] MEDS: MORPHINE 30 MG SA TAB PO SCH ×2 (08:50→21:41)
[2019-08-18] MEDS: MOM 30ML SUSPENSION UDC PO SCH (08:50)
[2019-08-18] MEDS: MULTIVITAMINS/MINERALS THERAP 1 TAB PO SCH (08:50)
[2019-08-18] MEDS: GABAPENTIN 300 MG CAP PO SCH ×4 (08:50→21:41)
[2019-08-18] MEDS: SENOKOT S TAB PO SCH ×2 (08:50→21:41)
[2019-08-18] MEDS: FOLIC ACID 1 MG TAB PO SCH (08:50)
[2019-08-18] MEDS: MIRALAX *UNIT DOSE* 17GM PACKET PO SCH (08:51)
[2019-08-18 14:00] VITALS: BP 121/53
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
[2019-08-18] MEDS: SANTYL OINT 30GM TOP SCH (21:42)
[2019-08-18 22:14] VITALS: BP 119/63
[2019-08-19] MEDS: MORPHINE 30 MG TAB **MSIR PO PRN ×4 (00:17→18:37)
[2019-08-19] MEDS: diphenhydrAMINE INJ 50MG/ML VIAL (J1200) IV PRN ×4 (00:17→18:36)
[2019-08-19] MEDS: SODIUM CHLORIDE 0.9% INJ 10 ML SYR IV PRN (00:18)
[2019-08-19 05:59] LABS: HEMATOCRIT 35.8 % (42.0-52.0); HEMOGLOBIN 10.9 g/dl (13.5-17.5); MEAN CORPUSCULAR HEMOGLOBIN 28.5 pg (27.0-33.0); MEAN CORPUSCULAR HGB CONC 30.4 g/dl (32.0-36.5); MEAN CORPUSCULAR VOLUME 93.7 fl (80.0-96.0); PLATELET COUNT, AUTOMATED 201 10^3/uL (150-450); RED BLOOD COUNT 3.82 10^6/uL (4.30-6.10); WHITE BLOOD COUNT 5.1 10^3/uL (4.0-10.0)
[2019-08-19 06:00] VITALS: BP 124/62
[2019-08-19] MEDS: SODIUM CHLORIDE 0.9% INJ 10 ML SYR IV SCH ×2 (06:21→18:36)
[2019-08-19 06:23] LABS: BLOOD UREA NITROGEN 11 MG/DL (7-18); CALCIUM LEVEL 8.8 MG/DL (8.5-10.1); CARBON DIOXIDE LEVEL 29 MEQ/L (21-32); CHLORIDE LEVEL 105 MEQ/L (98-107); GLOMERULAR FILTRATION RATE > 60.0 (>60); GLUCOSE, FASTING 114 MG/DL (70-100); POTASSIUM SERUM 3.8 MEQ/L (3.5-5.1); SODIUM LEVEL 141 MEQ/L (136-145)
[2019-08-19 08:00] VITALS: BP 122/64
[2019-08-19] MEDS: MOM 30ML SUSPENSION UDC PO SCH (09:00)
[2019-08-19] MEDS: MIRALAX *UNIT DOSE* 17GM PACKET PO SCH (09:00)
[2019-08-19] MEDS: MULTIVITAMINS/MINERALS THERAP 1 TAB PO SCH (09:06)
[2019-08-19] MEDS: GABAPENTIN 300 MG CAP PO SCH ×4 (09:07→21:17)
[2019-08-19] MEDS: SENOKOT S TAB PO SCH ×2 (09:07→21:00)
[2019-08-19] MEDS: FOLIC ACID 1 MG TAB PO SCH (09:07)
[2019-08-19] MEDS: ESCITALOPRAM OXALATE 10 MG TAB (LEXAPRO) PO SCH (09:07)
[2019-08-19] MEDS: THIAMINE 100 MG TAB PO SCH (09:08)
[2019-08-19] MEDS: NICOTINE 21MG/24HR 1 EA TRANSDERMAL TD SCH (09:37)
[2019-08-19] MEDS: ENOXAPARIN 30 MG/0.3 ML SYR (J1650) SC SCH ×2 (09:37→21:17)
[2019-08-19] MEDS: MORPHINE 30 MG SA TAB PO SCH ×2 (09:38→21:17)
[2019-08-19] MEDS: METHADONE 10 MG TAB (S0109) PO SCH (09:38)
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
[2019-08-19 14:47] VITALS: BP 132/66
[2019-08-19] MEDS: SANTYL OINT 30GM TOP SCH (19:24)
[2019-08-19 22:00] VITALS: BP 117/65
[2019-08-20] MEDS: diphenhydrAMINE INJ 50MG/ML VIAL (J1200) IV PRN ×2 (01:20→07:24)
[2019-08-20] MEDS: MORPHINE 30 MG TAB **MSIR PO PRN ×4 (01:21→20:16)
[2019-08-20] MEDS: SODIUM CHLORIDE 0.9% INJ 10 ML SYR IV SCH ×2 (06:00→16:54)
[2019-08-20 06:49] VITALS: BP 119/55
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
[2019-08-20] MEDS: MOM 30ML SUSPENSION UDC PO SCH (09:00)
[2019-08-20] MEDS: MIRALAX *UNIT DOSE* 17GM PACKET PO SCH (09:00)
[2019-08-20] MEDS: GABAPENTIN 300 MG CAP PO SCH ×4 (09:18→20:15)
[2019-08-20] MEDS: FOLIC ACID 1 MG TAB PO SCH (09:18)
[2019-08-20] MEDS: MORPHINE 30 MG SA TAB PO SCH (09:18)
[2019-08-20] MEDS: ESCITALOPRAM OXALATE 10 MG TAB (LEXAPRO) PO SCH (09:18)
[2019-08-20] MEDS: MULTIVITAMINS/MINERALS THERAP 1 TAB PO SCH (09:19)
[2019-08-20] MEDS: THIAMINE 100 MG TAB PO SCH (09:19)
[2019-08-20] MEDS: ENOXAPARIN 30 MG/0.3 ML SYR (J1650) SC SCH ×2 (09:19→20:16)
[2019-08-20] MEDS: SENOKOT S TAB PO SCH ×2 (09:19→20:15)
[2019-08-20] MEDS: NICOTINE 21MG/24HR 1 EA TRANSDERMAL TD SCH (09:20)
[2019-08-20] MEDS: METHADONE 10 MG TAB (S0109) PO SCH (09:20)
[2019-08-20] MEDS: diphenhydrAMINE 25 MG CAP PO PRN ×2 (14:04→20:16)
[2019-08-20] MEDS: SANTYL OINT 30GM TOP SCH (20:17)
[2019-08-21] MEDS: diphenhydrAMINE 25 MG CAP PO PRN ×4 (02:17→21:41)
[2019-08-21] MEDS: MORPHINE 30 MG TAB **MSIR PO PRN ×4 (02:17→21:41)
[2019-08-21] MEDS: SODIUM CHLORIDE 0.9% INJ 10 ML SYR IV SCH ×2 (05:25→17:12)
[2019-08-21 06:00] VITALS: BP 121/64
[2019-08-21 07:21] LABS: HEMATOCRIT 34.4 % (42.0-52.0); HEMOGLOBIN 10.7 g/dl (13.5-17.5); MEAN CORPUSCULAR HEMOGLOBIN 28.7 pg (27.0-33.0); MEAN CORPUSCULAR HGB CONC 31.1 g/dl (32.0-36.5); MEAN CORPUSCULAR VOLUME 92.2 fl (80.0-96.0); PLATELET COUNT, AUTOMATED 214 10^3/uL (150-450); RED BLOOD COUNT 3.73 10^6/uL (4.30-6.10); WHITE BLOOD COUNT 5.5 10^3/uL (4.0-10.0)
[2019-08-21 07:49] LABS: BLOOD UREA NITROGEN 15 MG/DL (7-18); CARBON DIOXIDE LEVEL 33 MEQ/L (21-32); CHLORIDE LEVEL 105 MEQ/L (98-107); CREATININE FOR GFR 0.95 MG/DL (0.70-1.30); GLOMERULAR FILTRATION RATE > 60.0 (>60); GLUCOSE, FASTING 87 MG/DL (70-100); SODIUM LEVEL 142 MEQ/L (136-145)
[2019-08-21] MEDS: MOM 30ML SUSPENSION UDC PO SCH (09:00)
[2019-08-21] MEDS: MIRALAX *UNIT DOSE* 17GM PACKET PO SCH (09:00)
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
[2019-08-21] MEDS: METHADONE 10 MG TAB (S0109) PO SCH (09:25)
[2019-08-21] MEDS: GABAPENTIN 300 MG CAP PO SCH ×4 (09:27→21:41)
[2019-08-21] MEDS: THIAMINE 100 MG TAB PO SCH (09:27)
[2019-08-21] MEDS: SENOKOT S TAB PO SCH ×2 (09:29→21:41)
[2019-08-21] MEDS: FOLIC ACID 1 MG TAB PO SCH (09:29)
[2019-08-21] MEDS: MULTIVITAMINS/MINERALS THERAP 1 TAB PO SCH (09:29)
[2019-08-21] MEDS: NICOTINE 21MG/24HR 1 EA TRANSDERMAL TD SCH (09:30)
[2019-08-21] MEDS: ESCITALOPRAM OXALATE 10 MG TAB (LEXAPRO) PO SCH (09:30)
[2019-08-21] MEDS: ENOXAPARIN 30 MG/0.3 ML SYR (J1650) SC SCH ×2 (09:31→21:41)
[2019-08-21 19:50] VITALS: BP 115/62
[2019-08-21] MEDS: SANTYL OINT 30GM TOP SCH (21:42)
[2019-08-22] MEDS: MORPHINE 30 MG TAB **MSIR PO PRN ×5 (01:40→22:08)
[2019-08-22] MEDS: diphenhydrAMINE 25 MG CAP PO PRN ×4 (03:46→22:09)
[2019-08-22] MEDS: SODIUM CHLORIDE 0.9% INJ 10 ML SYR IV SCH ×2 (05:30→17:45)
[2019-08-22 06:20] VITALS: BP 116/57
[2019-08-22] MEDS: MOM 30ML SUSPENSION UDC PO SCH (09:00)
[2019-08-22] MEDS: MIRALAX *UNIT DOSE* 17GM PACKET PO SCH (09:00)
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
[2019-08-22] MEDS: ENOXAPARIN 30 MG/0.3 ML SYR (J1650) SC SCH ×2 (09:52→22:09)
[2019-08-22] MEDS: METHADONE 10 MG TAB (S0109) PO SCH (09:53)
[2019-08-22] MEDS: SENOKOT S TAB PO SCH ×2 (09:55→22:09)
[2019-08-22] MEDS: MULTIVITAMINS/MINERALS THERAP 1 TAB PO SCH (09:56)
[2019-08-22] MEDS: THIAMINE 100 MG TAB PO SCH (09:57)
[2019-08-22] MEDS: ESCITALOPRAM OXALATE 10 MG TAB (LEXAPRO) PO SCH (09:57)
[2019-08-22] MEDS: FOLIC ACID 1 MG TAB PO SCH (09:57)
[2019-08-22] MEDS: GABAPENTIN 300 MG CAP PO SCH ×4 (09:58→22:09)
[2019-08-22] MEDS: NICOTINE 21MG/24HR 1 EA TRANSDERMAL TD SCH (09:58)
[2019-08-22] MEDS: SANTYL OINT 30GM TOP SCH (22:10)
[2019-08-23] MEDS: diphenhydrAMINE 25 MG CAP PO PRN ×4 (04:19→23:38)
[2019-08-23] MEDS: MORPHINE 30 MG TAB **MSIR PO PRN ×4 (04:20→23:38)
[2019-08-23] MEDS: SODIUM CHLORIDE 0.9% INJ 10 ML SYR IV SCH ×2 (05:57→10:00)
[2019-08-23 06:03] VITALS: BP 114/60
[2019-08-23] MEDS: MOM 30ML SUSPENSION UDC PO SCH (09:00)
[2019-08-23] MEDS: MIRALAX *UNIT DOSE* 17GM PACKET PO SCH (09:00)
[2019-08-23] MEDS: ESCITALOPRAM OXALATE 10 MG TAB (LEXAPRO) PO SCH (09:13)
[2019-08-23] MEDS: SENOKOT S TAB PO SCH ×2 (09:13→20:23)
[2019-08-23] MEDS: GABAPENTIN 300 MG CAP PO SCH ×4 (09:13→20:23)
[2019-08-23] MEDS: ENOXAPARIN 30 MG/0.3 ML SYR (J1650) SC SCH ×2 (09:14→20:22)
[2019-08-23] MEDS: METHADONE 10 MG TAB (S0109) PO SCH (09:15)
[2019-08-23] MEDS: THIAMINE 100 MG TAB PO SCH (09:15)
[2019-08-23] MEDS: MULTIVITAMINS/MINERALS THERAP 1 TAB PO SCH (09:15)
[2019-08-23] MEDS: FOLIC ACID 1 MG TAB PO SCH (09:15)
[2019-08-23] MEDS: NICOTINE 21MG/24HR 1 EA TRANSDERMAL TD SCH (09:16)
[2019-08-23] MEDS: SANTYL OINT 30GM TOP SCH (20:24)
--- NOTE | 2019-08-23 21:40 | IPN ---
DATE: 08/23/2019 Has been changed to alternate level of care (ALC) status. Still awaiting rehabilitation placement. [facility]
[2019-08-24] MEDS: SODIUM CHLORIDE 0.9% INJ 10 ML SYR IV SCH ×2 (05:47→17:54)
[2019-08-24] MEDS: diphenhydrAMINE 25 MG CAP PO PRN ×3 (05:48→19:10)
[2019-08-24] MEDS: MORPHINE 30 MG TAB **MSIR PO PRN ×3 (05:48→19:11)
[2019-08-24 06:00] VITALS: BP 115/64
[2019-08-24] MEDS: ENOXAPARIN 30 MG/0.3 ML SYR (J1650) SC SCH ×2 (08:18→20:59)
[2019-08-24] MEDS: ESCITALOPRAM OXALATE 10 MG TAB (LEXAPRO) PO SCH (08:19)
[2019-08-24] MEDS: SENOKOT S TAB PO SCH ×2 (08:19→20:58)
[2019-08-24] MEDS: NICOTINE 21MG/24HR 1 EA TRANSDERMAL TD SCH (08:19)
[2019-08-24] MEDS: MULTIVITAMINS/MINERALS THERAP 1 TAB PO SCH (08:19)
[2019-08-24] MEDS: FOLIC ACID 1 MG TAB PO SCH (08:19)
[2019-08-24] MEDS: GABAPENTIN 300 MG CAP PO SCH ×4 (08:19→20:58)
[2019-08-24] MEDS: THIAMINE 100 MG TAB PO SCH (08:19)
[2019-08-24] MEDS: MOM 30ML SUSPENSION UDC PO SCH (08:20)
[2019-08-24] MEDS: METHADONE 10 MG TAB (S0109) PO SCH (08:20)
[2019-08-24] MEDS: MIRALAX *UNIT DOSE* 17GM PACKET PO SCH (08:21)
[2019-08-24] MEDS: diphenhydrAMINE 50 MG CAP PO SCH (20:58)
[2019-08-24] MEDS: SANTYL OINT 30GM TOP SCH (20:59)
[2019-08-25] MEDS: diphenhydrAMINE 25 MG CAP PO PRN ×4 (01:17→21:40)
[2019-08-25] MEDS: MORPHINE 30 MG TAB **MSIR PO PRN ×4 (01:19→21:40)
[2019-08-25 05:17] VITALS: BP 127/66
[2019-08-25] MEDS: SODIUM CHLORIDE 0.9% INJ 10 ML SYR IV SCH ×2 (05:28→18:02)
[2019-08-25] MEDS: MOM 30ML SUSPENSION UDC PO SCH (09:00)
[2019-08-25] MEDS: MIRALAX *UNIT DOSE* 17GM PACKET PO SCH (09:00)
[2019-08-25] MEDS: METHADONE 10 MG TAB (S0109) PO SCH (09:25)
[2019-08-25] MEDS: FOLIC ACID 1 MG TAB PO SCH (09:26)
[2019-08-25] MEDS: SENOKOT S TAB PO SCH ×2 (09:26→20:40)
[2019-08-25] MEDS: MULTIVITAMINS/MINERALS THERAP 1 TAB PO SCH (09:26)
[2019-08-25] MEDS: ESCITALOPRAM OXALATE 10 MG TAB (LEXAPRO) PO SCH (09:26)
[2019-08-25] MEDS: THIAMINE 100 MG TAB PO SCH (09:26)
[2019-08-25] MEDS: GABAPENTIN 300 MG CAP PO SCH ×4 (09:26→20:41)
[2019-08-25] MEDS: NICOTINE 21MG/24HR 1 EA TRANSDERMAL TD SCH (09:27)
[2019-08-25] MEDS: ENOXAPARIN 30 MG/0.3 ML SYR (J1650) SC SCH ×2 (09:27→20:41)
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
[2019-08-25] MEDS: SANTYL OINT 30GM TOP SCH (18:02)
[2019-08-25] MEDS: diphenhydrAMINE 50 MG CAP PO SCH (20:40)
[2019-08-25] MEDS: MIRTAZAPINE 15 MG TAB PO SCH (20:41)
[2019-08-26] MEDS: MORPHINE 30 MG TAB **MSIR PO PRN ×4 (03:59→23:08)
[2019-08-26] MEDS: diphenhydrAMINE 25 MG CAP PO PRN ×4 (03:59→23:08)
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
[2019-08-26 06:00] VITALS: BP 132/63
[2019-08-26] MEDS: SODIUM CHLORIDE 0.9% INJ 10 ML SYR IV SCH ×2 (06:35→17:29)
[2019-08-26] MEDS: MIRALAX *UNIT DOSE* 17GM PACKET PO SCH (09:00)
[2019-08-26] MEDS: MOM 30ML SUSPENSION UDC PO SCH (09:00)
[2019-08-26] MEDS: ENOXAPARIN 30 MG/0.3 ML SYR (J1650) SC SCH ×2 (10:01→20:43)
[2019-08-26] MEDS: METHADONE 10 MG TAB (S0109) PO SCH (10:02)
[2019-08-26] MEDS: NICOTINE 21MG/24HR 1 EA TRANSDERMAL TD SCH (10:04)
[2019-08-26] MEDS: THIAMINE 100 MG TAB PO SCH (10:05)
[2019-08-26] MEDS: SENOKOT S TAB PO SCH ×2 (10:05→20:43)
[2019-08-26] MEDS: GABAPENTIN 300 MG CAP PO SCH ×4 (10:05→20:43)
[2019-08-26] MEDS: FOLIC ACID 1 MG TAB PO SCH (10:06)
[2019-08-26] MEDS: ESCITALOPRAM OXALATE 10 MG TAB (LEXAPRO) PO SCH (10:06)
[2019-08-26] MEDS: MULTIVITAMINS/MINERALS THERAP 1 TAB PO SCH (10:07)
[2019-08-26] MEDS: MIRTAZAPINE 15 MG TAB PO SCH (20:43)
[2019-08-26] MEDS: diphenhydrAMINE 50 MG CAP PO SCH (20:43)
[2019-08-26] MEDS: SANTYL OINT 30GM TOP SCH (20:44)
[2019-08-27] MEDS: MORPHINE 30 MG TAB **MSIR PO PRN ×4 (05:15→23:38)
[2019-08-27] MEDS: diphenhydrAMINE 25 MG CAP PO PRN ×4 (05:15→23:37)
[2019-08-27] MEDS: SODIUM CHLORIDE 0.9% INJ 10 ML SYR IV SCH ×2 (05:16→17:24)
[2019-08-27 06:00] VITALS: BP 108/58
[2019-08-27] MEDS: GABAPENTIN 300 MG CAP PO SCH ×4 (08:41→20:20)
[2019-08-27] MEDS: SENOKOT S TAB PO SCH ×2 (08:41→20:19)
[2019-08-27] MEDS: FOLIC ACID 1 MG TAB PO SCH (08:42)
[2019-08-27] MEDS: THIAMINE 100 MG TAB PO SCH (08:42)
[2019-08-27] MEDS: NICOTINE 21MG/24HR 1 EA TRANSDERMAL TD SCH (08:42)
[2019-08-27] MEDS: METHADONE 10 MG TAB (S0109) PO SCH (08:43)
[2019-08-27] MEDS: MULTIVITAMINS/MINERALS THERAP 1 TAB PO SCH (08:43)
[2019-08-27] MEDS: ESCITALOPRAM OXALATE 10 MG TAB (LEXAPRO) PO SCH (08:43)
[2019-08-27] MEDS: ENOXAPARIN 30 MG/0.3 ML SYR (J1650) SC SCH ×2 (08:43→20:20)
[2019-08-27] MEDS: MOM 30ML SUSPENSION UDC PO SCH (08:44)
[2019-08-27] MEDS: MIRALAX *UNIT DOSE* 17GM PACKET PO SCH (08:44)
[2019-08-27] MEDS: diphenhydrAMINE 50 MG CAP PO SCH (20:19)
[2019-08-27] MEDS: MIRTAZAPINE 15 MG TAB PO SCH (20:19)
[2019-08-27] MEDS: SANTYL OINT 30GM TOP SCH (20:23)
[2019-08-28] MEDS: MORPHINE 30 MG TAB **MSIR PO PRN ×3 (05:38→18:08)
[2019-08-28] MEDS: diphenhydrAMINE 25 MG CAP PO PRN ×3 (05:38→18:09)
[2019-08-28] MEDS: SODIUM CHLORIDE 0.9% INJ 10 ML SYR IV SCH ×2 (05:39→18:10)
[2019-08-28 06:00] VITALS: BP 121/59
[2019-08-28] MEDS: MIRALAX *UNIT DOSE* 17GM PACKET PO SCH (09:00)
[2019-08-28] MEDS: MOM 30ML SUSPENSION UDC PO SCH (09:00)
[2019-08-28] MEDS: METHADONE 10 MG TAB (S0109) PO SCH (09:36)
[2019-08-28] MEDS: FOLIC ACID 1 MG TAB PO SCH (09:36)
[2019-08-28] MEDS: MULTIVITAMINS/MINERALS THERAP 1 TAB PO SCH (09:37)
[2019-08-28] MEDS: ENOXAPARIN 30 MG/0.3 ML SYR (J1650) SC SCH ×2 (09:37→21:29)
[2019-08-28] MEDS: GABAPENTIN 300 MG CAP PO SCH ×4 (09:37→21:30)
[2019-08-28] MEDS: ESCITALOPRAM OXALATE 10 MG TAB (LEXAPRO) PO SCH (09:37)
[2019-08-28] MEDS: SENOKOT S TAB PO SCH ×2 (09:37→21:30)
[2019-08-28] MEDS: THIAMINE 100 MG TAB PO SCH (09:37)
[2019-08-28] MEDS: NICOTINE 21MG/24HR 1 EA TRANSDERMAL TD SCH (09:38)
[2019-08-28] MEDS: MIRTAZAPINE 15 MG TAB PO SCH (21:30)
[2019-08-28] MEDS: diphenhydrAMINE 50 MG CAP PO SCH (21:30)
[2019-08-28] MEDS: SANTYL OINT 30GM TOP SCH (21:32)
[2019-08-29] MEDS: diphenhydrAMINE 25 MG CAP PO PRN ×4 (00:26→18:07)
[2019-08-29] MEDS: MORPHINE 30 MG TAB **MSIR PO PRN ×4 (00:26→18:08)
[2019-08-29 06:00] VITALS: BP 122/70
[2019-08-29] MEDS: SODIUM CHLORIDE 0.9% INJ 10 ML SYR IV SCH ×2 (06:44→18:08)
[2019-08-29] MEDS: MIRALAX *UNIT DOSE* 17GM PACKET PO SCH (09:00)
[2019-08-29] MEDS: MOM 30ML SUSPENSION UDC PO SCH (09:00)
[2019-08-29] MEDS: METHADONE 10 MG TAB (S0109) PO SCH (10:04)
[2019-08-29] MEDS: ESCITALOPRAM OXALATE 10 MG TAB (LEXAPRO) PO SCH (10:05)
[2019-08-29] MEDS: MULTIVITAMINS/MINERALS THERAP 1 TAB PO SCH (10:05)
[2019-08-29] MEDS: GABAPENTIN 300 MG CAP PO SCH ×4 (10:05→20:32)
[2019-08-29] MEDS: FOLIC ACID 1 MG TAB PO SCH (10:05)
[2019-08-29] MEDS: THIAMINE 100 MG TAB PO SCH (10:05)
[2019-08-29] MEDS: SENOKOT S TAB PO SCH ×2 (10:05→20:32)
[2019-08-29] MEDS: NICOTINE 21MG/24HR 1 EA TRANSDERMAL TD SCH (10:06)
[2019-08-29] MEDS: ENOXAPARIN 30 MG/0.3 ML SYR (J1650) SC SCH ×2 (10:06→20:33)
[2019-08-29] MEDS: MIRTAZAPINE 15 MG TAB PO SCH (20:33)
[2019-08-29] MEDS: diphenhydrAMINE 50 MG CAP PO SCH (20:33)
[2019-08-29] MEDS: SANTYL OINT 30GM TOP SCH (20:44)
[2019-08-30] MEDS: diphenhydrAMINE 25 MG CAP PO PRN ×4 (00:06→18:09)
[2019-08-30] MEDS: MORPHINE 30 MG TAB **MSIR PO PRN ×4 (00:07→18:09)
[2019-08-30 06:00] VITALS: BP 131/61
[2019-08-30] MEDS: SODIUM CHLORIDE 0.9% INJ 10 ML SYR IV SCH ×2 (06:07→18:10)
[2019-08-30] MEDS: THIAMINE 100 MG TAB PO SCH (08:49)
[2019-08-30] MEDS: ENOXAPARIN 30 MG/0.3 ML SYR (J1650) SC SCH ×2 (08:49→22:13)
[2019-08-30] MEDS: GABAPENTIN 300 MG CAP PO SCH ×4 (08:49→22:16)
[2019-08-30] MEDS: MULTIVITAMINS/MINERALS THERAP 1 TAB PO SCH (08:49)
[2019-08-30] MEDS: ESCITALOPRAM OXALATE 10 MG TAB (LEXAPRO) PO SCH (08:49)
[2019-08-30] MEDS: FOLIC ACID 1 MG TAB PO SCH (08:49)
[2019-08-30] MEDS: SENOKOT S TAB PO SCH ×2 (08:49→22:15)
[2019-08-30] MEDS: MIRALAX *UNIT DOSE* 17GM PACKET PO SCH (08:50)
[2019-08-30] MEDS: MOM 30ML SUSPENSION UDC PO SCH (08:50)
[2019-08-30] MEDS: METHADONE 10 MG TAB (S0109) PO SCH (08:50)
[2019-08-30] MEDS: NICOTINE 21MG/24HR 1 EA TRANSDERMAL TD SCH (08:50)
[2019-08-30] MEDS: diphenhydrAMINE 50 MG CAP PO SCH (22:16)
[2019-08-30] MEDS: MIRTAZAPINE 15 MG TAB PO SCH (22:16)
[2019-08-31] MEDS: diphenhydrAMINE 25 MG CAP PO PRN ×3 (00:19→15:18)
[2019-08-31] MEDS: MORPHINE 30 MG TAB **MSIR PO PRN ×4 (00:20→22:27)
[2019-08-31] MEDS: SODIUM CHLORIDE 0.9% INJ 10 ML SYR IV SCH ×2 (06:33→17:58)
[2019-08-31] MEDS: SANTYL OINT 30GM TOP SCH (06:35)
[2019-08-31 06:50] VITALS: BP 112/56
[2019-08-31] MEDS: MOM 30ML SUSPENSION UDC PO SCH (09:00)
[2019-08-31] MEDS: MIRALAX *UNIT DOSE* 17GM PACKET PO SCH (09:00)
[2019-08-31] MEDS: ENOXAPARIN 30 MG/0.3 ML SYR (J1650) SC SCH ×2 (09:10→22:29)
[2019-08-31] MEDS: FOLIC ACID 1 MG TAB PO SCH (09:10)
[2019-08-31] MEDS: GABAPENTIN 300 MG CAP PO SCH ×4 (09:10→22:28)
[2019-08-31] MEDS: METHADONE 10 MG TAB (S0109) PO SCH (09:10)
[2019-08-31] MEDS: NICOTINE 21MG/24HR 1 EA TRANSDERMAL TD SCH (09:10)
[2019-08-31] MEDS: SENOKOT S TAB PO SCH ×2 (09:11→21:00)
[2019-08-31] MEDS: ESCITALOPRAM OXALATE 10 MG TAB (LEXAPRO) PO SCH (09:11)
[2019-08-31] MEDS: MULTIVITAMINS/MINERALS THERAP 1 TAB PO SCH (09:11)
[2019-08-31] MEDS: THIAMINE 100 MG TAB PO SCH (09:11)
[2019-08-31] MEDS: MIRTAZAPINE 15 MG TAB PO SCH (22:28)
[2019-08-31] MEDS: diphenhydrAMINE 50 MG CAP PO SCH (22:28)
[2019-09-01] MEDS: MORPHINE 30 MG TAB **MSIR PO PRN ×3 (05:30→18:18)
[2019-09-01] MEDS: diphenhydrAMINE 25 MG CAP PO PRN ×3 (05:30→18:18)
[2019-09-01] MEDS: SODIUM CHLORIDE 0.9% INJ 10 ML SYR IV SCH ×2 (05:35→18:19)
[2019-09-01 06:00] VITALS: BP 118/63
[2019-09-01] MEDS: SANTYL OINT 30GM TOP SCH ×2 (06:54→20:47)
[2019-09-01] MEDS: SENOKOT S TAB PO SCH ×2 (10:06→20:46)
[2019-09-01] MEDS: METHADONE 10 MG TAB (S0109) PO SCH (10:06)
[2019-09-01] MEDS: MULTIVITAMINS/MINERALS THERAP 1 TAB PO SCH (10:06)
[2019-09-01] MEDS: ESCITALOPRAM OXALATE 10 MG TAB (LEXAPRO) PO SCH (10:07)
[2019-09-01] MEDS: NICOTINE 21MG/24HR 1 EA TRANSDERMAL TD SCH (10:07)
[2019-09-01] MEDS: FOLIC ACID 1 MG TAB PO SCH (10:07)
[2019-09-01] MEDS: THIAMINE 100 MG TAB PO SCH (10:07)
[2019-09-01] MEDS: GABAPENTIN 300 MG CAP PO SCH ×4 (10:07→20:47)
[2019-09-01] MEDS: MOM 30ML SUSPENSION UDC PO SCH (10:07)
[2019-09-01] MEDS: MIRALAX *UNIT DOSE* 17GM PACKET PO SCH (10:08)
[2019-09-01] MEDS: ENOXAPARIN 30 MG/0.3 ML SYR (J1650) SC SCH (10:08)
[2019-09-01] MEDS: RIVAROXABAN 20 MG TAB (XARELTO) PO SCH (18:18)
[2019-09-01] MEDS: MIRTAZAPINE 15 MG TAB PO SCH (20:47)
[2019-09-01] MEDS: diphenhydrAMINE 50 MG CAP PO SCH (20:47)
[2019-09-02] MEDS: MORPHINE 30 MG TAB **MSIR PO PRN ×3 (00:24→17:59)
[2019-09-02] MEDS: diphenhydrAMINE 25 MG CAP PO PRN ×3 (00:24→13:29)
[2019-09-02 06:00] VITALS: BP 116/56
[2019-09-02] MEDS: SODIUM CHLORIDE 0.9% INJ 10 ML SYR IV SCH (06:23)
[2019-09-02] MEDS ORDERED: IBUPROFEN 800 MG TAB PO PRN (08:45)
[2019-09-02] MEDS: MIRALAX *UNIT DOSE* 17GM PACKET PO SCH (09:00)
[2019-09-02] MEDS: MOM 30ML SUSPENSION UDC PO SCH (09:00)
[2019-09-02] MEDS: NICOTINE 21MG/24HR 1 EA TRANSDERMAL TD SCH (09:27)
[2019-09-02] MEDS: MULTIVITAMINS/MINERALS THERAP 1 TAB PO SCH (09:27)
[2019-09-02] MEDS: ESCITALOPRAM OXALATE 10 MG TAB (LEXAPRO) PO SCH (09:28)
[2019-09-02] MEDS: METHADONE 10 MG TAB (S0109) PO SCH (09:28)
[2019-09-02] MEDS: GABAPENTIN 300 MG CAP PO SCH ×4 (09:28→20:12)
[2019-09-02] MEDS: SENOKOT S TAB PO SCH ×2 (09:28→20:12)
[2019-09-02] MEDS: FOLIC ACID 1 MG TAB PO SCH (09:28)
[2019-09-02] MEDS: THIAMINE 100 MG TAB PO SCH (09:29)
[2019-09-02] MEDS ORDERED: FOLI1TAB11 PO (13:51)
[2019-09-02] MEDS ORDERED: PEG1POW PO (13:51)
[2019-09-02] MEDS ORDERED: BENA25CA4 PO (13:51)
[2019-09-02] MEDS ORDERED: DIPH50CA PO (13:51)
[2019-09-02] MEDS ORDERED: THIA100TA PO (13:51)
[2019-09-02] MEDS ORDERED: REME15TA PO (13:51)
[2019-09-02] MEDS ORDERED: GABA800T4 PO (13:51)
[2019-09-02] MEDS ORDERED: ESCI10TA2 PO (13:51)
[2019-09-02] MEDS ORDERED: COLA100C5 PO (13:51)
[2019-09-02] MEDS ORDERED: IBUP80TA PO (13:51)
[2019-09-02] MEDS: RIVAROXABAN 20 MG TAB (XARELTO) PO SCH (17:52)
[2019-09-02] MEDS: MIRTAZAPINE 15 MG TAB PO SCH (20:12)
[2019-09-02] MEDS: diphenhydrAMINE 50 MG CAP PO SCH (20:12)
[2019-09-02] MEDS: SANTYL OINT 30GM TOP SCH (20:13)
[2019-09-03] MEDS: diphenhydrAMINE 25 MG CAP PO PRN (00:54)
[2019-09-03 06:00] VITALS: BP 128/61
[2019-09-03] MEDS ORDERED: ASPI81TA85 PO (08:03)
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
[2019-09-03] MEDS: METHADONE 10 MG TAB (S0109) PO SCH (08:57)
[2019-09-03] MEDS: FOLIC ACID 1 MG TAB PO SCH (08:58)
[2019-09-03] MEDS: MORPHINE 30 MG TAB **MSIR PO PRN (08:59)
[2019-09-03] MEDS: THIAMINE 100 MG TAB PO SCH (08:59)
[2019-09-03] MEDS: GABAPENTIN 300 MG CAP PO SCH (08:59)
[2019-09-03] MEDS: SENOKOT S TAB PO SCH (08:59)
[2019-09-03] MEDS: MOM 30ML SUSPENSION UDC PO SCH (08:59)
[2019-09-03] MEDS: ESCITALOPRAM OXALATE 10 MG TAB (LEXAPRO) PO SCH (08:59)
[2019-09-03] MEDS: MULTIVITAMINS/MINERALS THERAP 1 TAB PO SCH (08:59)
[2019-09-03] MEDS: MIRALAX *UNIT DOSE* 17GM PACKET PO SCH (09:00)
[2019-09-03] MEDS: NICOTINE 21MG/24HR 1 EA TRANSDERMAL TD SCH (09:00)
== END 2019-09-03 12:15 | disposition home health service (06) | DRG 313 ==
LOC: EDBD 13:05 → M ED 13:05 → M ED INP 15:00 → M ICU 21:31 → M MS5PR 07-18 17:50
PROVIDERS: ADMIT Orthopaedic Surgery Hand Surgery; ATTEND Internal Medicine Nephrology
PROC: 0QHG05Z Insertion of External Fixation Device into Right Tibia, Open Approach (ICD-10-PCS; 2019-07-15)
PROC: 0QSH04Z Reposition Left Tibia with Internal Fixation Device, Open Approach (ICD-10-PCS; principal; 2019-07-15 14:41)
PROC: 0QSG04Z Reposition Right Tibia with Internal Fixation Device, Open Approach (ICD-10-PCS; 2019-07-26)
PROC: 0QSJ04Z Reposition Right Fibula with Internal Fixation Device, Open Approach (ICD-10-PCS; 2019-07-26)
PROC: 0QPG05Z Removal of External Fixation Device from Right Tibia, Open Approach (ICD-10-PCS; 2019-07-26)
PROC: 0QBG0ZZ Excision of Right Tibia, Open Approach (ICD-10-PCS; 2019-07-26 14:30)
PROC: 02HV33Z Insertion of Infusion Device into Superior Vena Cava, Percutaneous Approach (ICD-10-PCS; 2019-07-27)
DX: S82.871A Displaced pilon fracture of right tibia, initial encounter for closed fracture (principal); L03.115 Cellulitis of right lower limb; G62.9 Polyneuropathy, unspecified; S82.424A Nondisplaced transverse fracture of shaft of right fibula, initial encounter for closed fracture; F11.10 Opioid abuse, uncomplicated; D64.9 Anemia, unspecified; S82.425A Nondisplaced transverse fracture of shaft of left fibula, initial encounter for closed fracture; S82.872A Displaced pilon fracture of left tibia, initial encounter for closed fracture; F10.129 Alcohol abuse with intoxication, unspecified; K59.00 Constipation, unspecified; F39 Unspecified mood [affective] disorder; F43.10 Post-traumatic stress disorder, unspecified; S97.01XA Crushing injury of right ankle, initial encounter; S97.02XA Crushing injury of left ankle, initial encounter; L03.116 Cellulitis of left lower limb; G47.00 Insomnia, unspecified; Z79.899 Other long term (current) drug therapy; Z88.0 Allergy status to penicillin; W23.0XXA Caught, crushed, jammed, or pinched between moving objects, initial encounter; Y92.009 Unspecified place in unspecified non-institutional (private) residence as the place of occurrence of the external cause

== ENCOUNTER 2019-09-07 12:51 | Inpatient (IN) | payer OTHER ==
[~2019-09-07] VITALS: Ht 193 cm; Wt 137.0 kg
[~2019-09-07 12:51] MED LIST changes: +ASPI81TA85 PO; +BENA25CA4 PO; +CLON-412 PO; +COLA100C5 PO; +DIPH50CA PO; +ESCI10TA2 PO; +FOLI1TAB11 PO; +GABA600T4 PO; +GABA800T4 PO; +PEG1POW PO; +REME15TA PO; +THIA100TA PO
[2019-09-07] MEDS ORDERED: KCL 20MEQ IN D5/0.45NS 1000ML 1,000 ML IV SCH (13:15)
[2019-09-07] MEDS ORDERED: ceFAZolin SOD 2 GM in IV 1 EA IV SCH (13:45)
--- NOTE | 2019-09-07 15:17 | CR ---
DATE OF CONSULTATION: 09/07/2019 CHIEF COMPLAINT: Bilateral leg pain and drainage. This is a 39-year-old male who is about 6 weeks status post bilateral open tibia fractures, right was a pilon and left was a tibial shaft. About 7 weeks from the left tibial shaft fracture being fixed and the right ankle underwent Ex-Fix and then subsequent open reduction, internal fixation (ORIF). He was then admitted for a prolonged hospital stay due to his previous substance abuse and he is currently on methadone and having difficulty with pain control. Unfortunately, he was just recently discharged. After being discharged, he has been driving to and from [employer] and during those drives he has had his legs in a dependent position. He has noticed significantly increased level of pain and drainage to his bilateral legs. He denies any fevers, chills, nausea, vomiting, or any purulent discharge. He has increasing amounts of serous drainage and some erythema as well. Denies any new trauma. Says the pain is a 10 out of 10 and that it is made worse with movement and mobilization and is improved with rest. PAST MEDICAL HISTORY: Substance abuse, on methadone. PAST SURGICAL HISTORY: Bilateral leg surgeries for orthopedics. ALLERGIES: No known drug allergies at this time. PHYSICAL EXAMINATION: The patient is awake, alert, oriented. Well dressed. Appropriate affect. HEENT: Normocephalic, atraumatic. EXTREMITIES: Bilateral lower extremities -- both legs at the sites of previous open wounds have significant serous drainage. There is bilateral significant swelling that was not present previously during his last visit in the hospital. Positive extensor hallucis longus (EHL), flexor hallucis longus (FHL), tibialis, gastroc motor function. Neurovascularly intact distally. Other than the open lacerations from the tibia fractures, the incisions are well healed. There is no obvious purulent drainage, just increasing serous drainage. X-rays from the office demonstrate interval healing of the left tibial shaft, along with the distal tibia and fibula fractures. ASSESSMENT: This is a 6 to 7 week postoperative for bilateral open tibial injuries. At this point, I would like to admit him for pain control and infection evaluation. We will get CT scans with and without contrast to evaluate any sort of flexion. Also, we will get a CBC, C-reactive protein, and ESR to evaluate landmarkers. We will hold off on antibiotics at this time. I would like the patient to do aggressive elevation on multiple pillows and being bed rest as much as possible in order to decrease swelling. There are a few different concerns going on, being that it is an open tibia fracture initially he is at higher risk of having tibia infection. With that being said, it think that it is a little unusual to have both presenting at exactly the same moment, but with the increasing drainage I am concerned actually that it is increased activity and his prolonged drives to and from [place] for his methadone and actually placing his legs in dependent position, increasing swelling and therefore increasing serous drainage from his previous sites. They are still trying to heal by secondary intension through granulation. We will hold off on antibiotics and monitor him. Please make him nothing by mouth at midnight and we will have further discussions regarding surgical interventions as necessary.
[2019-09-07 15:50] LABS: BASO # 0.1 10^3/uL (0.0-0.2); BASO % 0.7 % (0.0-1.0); EOS # 0.2 10^3/uL (0.0-0.5); EOS % 2.6 % (0.0-3.0); HEMATOCRIT 34.6 % (42.0-52.0); HEMOGLOBIN 11.2 g/dl (13.5-17.5); LYMPH % 23.2 % (24.0-44.0); MEAN CORPUSCULAR HEMOGLOBIN 29.2 pg (27.0-33.0); MEAN CORPUSCULAR HGB CONC 32.4 g/dl (32.0-36.5); MEAN CORPUSCULAR VOLUME 90.1 fl (80.0-96.0); MONO # 0.7 10^3/uL (0.0-0.8); MONO % 8.3 % (0.0-5.0); NEUTROPHILS # 5.6 10^3/uL (1.5-8.5); NEUTROPHILS % 64.7 % (36.0-66.0); PLATELET COUNT, AUTOMATED 249 10^3/uL (150-450); RED BLOOD COUNT 3.84 10^6/uL (4.30-6.10); WHITE BLOOD COUNT 8.7 10^3/uL (4.0-10.0)
[2019-09-07 16:08] LABS: ERYTHROCYTE SEDIMENTATION RATE 25 mm/hr (0-15)
[2019-09-07 16:21] LABS: ALBUMIN 3.6 GM/DL (3.2-5.2); ALT/SGPT 42 U/L (12-78); BILIRUBIN,TOTAL 0.2 MG/DL (0.2-1.0); BLOOD UREA NITROGEN 17 MG/DL (7-18); CALCIUM LEVEL 9.1 MG/DL (8.5-10.1); CARBON DIOXIDE LEVEL 26 MEQ/L (21-32); CHLORIDE LEVEL 105 MEQ/L (98-107); CREATININE FOR GFR 0.86 MG/DL (0.70-1.30); GLOMERULAR FILTRATION RATE > 60.0 (>60); GLUCOSE, FASTING 105 MG/DL (70-100); POTASSIUM SERUM 3.8 MEQ/L (3.5-5.1); SODIUM LEVEL 142 MEQ/L (136-145); TOTAL PROTEIN 6.8 GM/DL (6.4-8.2)
[2019-09-07] MEDS ORDERED: ACETAMINOPHEN 500 MG TAB PO PRN (16:30)
--- NOTE | 2019-09-07 16:30 | REP ---
Bilateral lower extremity Duplex Doppler venous ultrasound: Real time compression and duplex Doppler interrogation of the bilateral lower extremity deep venous system is performed. Bilaterally, the common femoral, superficial femoral and popliteal veins are fully compressible with transducer pressure and demonstrate normal spontaneous and phasic flow, without evidence of deep venous thrombosis. Impression: No evidence of deep venous thrombosis of the bilateral lower extremity femoral popliteal venous system. Electronically Signed by Cirilo Noel MD 09/07/2019 04:22 P
[2019-09-07 16:40] VITALS: BP 140/78
[2019-09-07] MEDS ORDERED: MORPHINE 30 MG SA TAB PO ONE (16:45)
[2019-09-07] MEDS ORDERED: MORPHINE 30 MG TAB **MSIR PO ONE (16:45)
[2019-09-07] MEDS ORDERED: FUROSEMIDE 100 MG/10 ML VIAL (J1940) IV ONE (18:00)
[2019-09-07] MEDS ORDERED: ISOVUE-370 76% 100ML VIAL (Q9967) As Ordered ONE (18:24)
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
[2019-09-07 19:29] LABS: BASO # 0.1 10^3/uL (0.0-0.2); BASO % 0.6 % (0.0-1.0); EOS # 0.2 10^3/uL (0.0-0.5); EOS % 2.6 % (0.0-3.0); HEMATOCRIT 33.7 % (42.0-52.0); HEMOGLOBIN 10.8 g/dl (13.5-17.5); LYMPH # 2.2 10^3/uL (1.5-5.0); LYMPH % 24.7 % (24.0-44.0); MEAN CORPUSCULAR HEMOGLOBIN 28.7 pg (27.0-33.0); MEAN CORPUSCULAR VOLUME 89.6 fl (80.0-96.0); MONO # 0.9 10^3/uL (0.0-0.8); MONO % 9.9 % (0.0-5.0); NEUTROPHILS # 5.5 10^3/uL (1.5-8.5); NEUTROPHILS % 61.9 % (36.0-66.0); PLATELET COUNT, AUTOMATED 233 10^3/uL (150-450); RED BLOOD COUNT 3.76 10^6/uL (4.30-6.10); WHITE BLOOD COUNT 8.8 10^3/uL (4.0-10.0)
[2019-09-07] MEDS ORDERED: DIPH50CA PO (19:31)
[2019-09-07] MEDS ORDERED: ESCI10TA2 PO (19:31)
[2019-09-07] MEDS ORDERED: FOLI1TAB11 PO (19:31)
[2019-09-07] MEDS ORDERED: ASPI81TA26 PO (19:31)
[2019-09-07] MEDS ORDERED: GABA800T4 PO (19:31)
[2019-09-07] MEDS ORDERED: MIRT1TAB15 PO (19:31)
[2019-09-07] MEDS ORDERED: THIA100T7 PO (19:31)
[2019-09-07] MEDS ORDERED: METH10CO PO (19:31)
[2019-09-07] MEDS ORDERED: IBUP1TAB7 PO (19:31)
[2019-09-07] MEDS ORDERED: COLA100C5 PO (19:31)
[2019-09-07] MEDS ORDERED: MORPHINE 30 MG TAB **MSIR PO PRN (19:45)
[2019-09-07 19:58] LABS: BLOOD UREA NITROGEN 17 MG/DL (7-18); CALCIUM LEVEL 8.8 MG/DL (8.5-10.1); CARBON DIOXIDE LEVEL 28 MEQ/L (21-32); CHLORIDE LEVEL 105 MEQ/L (98-107); GLOMERULAR FILTRATION RATE > 60.0 (>60); GLUCOSE, FASTING 108 MG/DL (70-100); MAGNESIUM LEVEL 2.1 MG/DL (1.8-2.4); NT-PRO BNP 64 PG/ML (<125); POTASSIUM SERUM 3.9 MEQ/L (3.5-5.1); SODIUM LEVEL 140 MEQ/L (136-145)
[2019-09-07] MEDS ORDERED: PILL CUTTER 1 EACH XX PRN (20:15)
[2019-09-07 20:48] LABS: CLOSTRIDIUM DIFFICILE PCR POSITIVE (NEGATIVE)
[2019-09-07] MEDS ORDERED: diphenhydrAMINE 50 MG CAP PO SCH (21:00)
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
[2019-09-07] MEDS ORDERED: KETOROLAC 30 MG/ML VIAL (J1885) IV ONE (21:45)
[2019-09-07 21:58] VITALS: BP 142/74
[2019-09-07] MEDS ORDERED: diphenhydrAMINE INJ 50MG/ML VIAL (J1200) IV ONE (22:00)
[2019-09-07] MEDS: GABAPENTIN 400 MG CAP PO SCH (22:01)
[2019-09-07] MEDS: ACETAMINOPHEN 500 MG TAB PO SCH (22:02)
[2019-09-07] MEDS: MIRTAZAPINE 15 MG TAB PO SCH (22:02)
[2019-09-07] MEDS: LACTOBACILLUS ACIDOPHILUS CAP (BACID) PO SCH (22:02)
[2019-09-08] MEDS: VANCOMYCIN ORAL SOL 250MG/5ML ORAL SYRINGE PO SCH ×5 (00:55→23:55)
[2019-09-08] MEDS ORDERED: KCL 20MEQ IN D5/0.45NS 1000ML 1,000 ML IV SCH (02:00)
[2019-09-08] MEDS ORDERED: KETOROLAC 30 MG/ML VIAL (J1885) IV PRN (06:00)
[2019-09-08] MEDS ORDERED: MORPHINE 30 MG SA TAB PO SCH ×2 (06:00)
[2019-09-08] MEDS: ACETAMINOPHEN 500 MG TAB PO SCH ×3 (06:08→21:10)
[2019-09-08 06:43] VITALS: BP 124/58
[2019-09-08] MEDS ORDERED: METHADONE 5 MG TAB (S0109) PO SCH (09:00)
[2019-09-08] MEDS ORDERED: FIRV50SO PO (09:51)
[2019-09-08] MEDS ORDERED: METHADONE 10 MG TAB (S0109) PO SCH (09:54)
[2019-09-08] MEDS ORDERED: BACI1CAP PO (09:55)
[2019-09-08] MEDS ORDERED: BACT800T5 PO (09:55)
[2019-09-08] MEDS: GABAPENTIN 400 MG CAP PO SCH ×3 (10:10→21:11)
[2019-09-08] MEDS: FOLIC ACID 1 MG TAB PO SCH (10:10)
[2019-09-08] MEDS: LACTOBACILLUS ACIDOPHILUS CAP (BACID) PO SCH ×4 (10:10→21:10)
[2019-09-08] MEDS: ESCITALOPRAM OXALATE 10 MG TAB (LEXAPRO) PO SCH (10:10)
[2019-09-08] MEDS: THIAMINE 100 MG TAB PO SCH (10:10)
[2019-09-08] MEDS: METHADONE 10 MG TAB (S0109) PO SCH (10:12)
[2019-09-08] MEDS: diphenhydrAMINE 50 MG CAP PO PRN ×2 (10:14→23:55)
[2019-09-08] MEDS: IBUPROFEN 600 MG TAB PO PRN ×2 (10:14→23:57)
[2019-09-08] MEDS ORDERED: metOLazone 5 MG TAB PO ONE (11:00)
[2019-09-08] MEDS ORDERED: BACTRIM 160MG/800MG DS TAB PO ONE (11:00)
[2019-09-08] MEDS ORDERED: FUROSEMIDE 100 MG/10 ML VIAL (J1940) IV ONE (12:00)
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
[2019-09-08 12:53] LABS: BASO % 0.6 % (0.0-1.0); EOS # 0.4 10^3/uL (0.0-0.5); EOS % 6.6 % (0.0-3.0); HEMATOCRIT 35.5 % (42.0-52.0); HEMOGLOBIN 11.1 g/dl (13.5-17.5); LYMPH # 1.8 10^3/uL (1.5-5.0); LYMPH % 33.7 % (24.0-44.0); MEAN CORPUSCULAR HEMOGLOBIN 28.2 pg (27.0-33.0); MEAN CORPUSCULAR HGB CONC 31.3 g/dl (32.0-36.5); MEAN CORPUSCULAR VOLUME 90.1 fl (80.0-96.0); MONO # 0.5 10^3/uL (0.0-0.8); MONO % 8.6 % (0.0-5.0); NEUTROPHILS # 2.7 10^3/uL (1.5-8.5); NEUTROPHILS % 50.1 % (36.0-66.0); PLATELET COUNT, AUTOMATED 213 10^3/uL (150-450); RED BLOOD COUNT 3.94 10^6/uL (4.30-6.10); WHITE BLOOD COUNT 5.3 10^3/uL (4.0-10.0)
[2019-09-08 14:00] VITALS: BP 136/74
--- NOTE | 2019-09-08 15:28 | CR.PDOC ---
[facility] Pain Clinic Consultation General Date of Consultation: 09/08/19 Chief Complaint The patient is a 39-year-old male admitted with a reason for visit of Cellulitis Left Tibia. History of Present Illness 39 year old male with a hx of bilateral leg fractures in with cellulitis of the left tibia and complaints of continued pain. He rates his pain at a 7-8/10 and describes it as continous. He feels the pain is an increased stressor in his life and has caused a decline in his mental health and overall well being. Home Medications Scheduled Aspirin (Aspirin EC) 81 Mg Tablet.dr, 81 MG PO DAILY, (Reported) Bacillus Coagulans (Bacid with Lactospore) 1 Each Capsule, 1 CAP PO BID Diphenhydramine HCl (Diphenhydramine HCl) 50 Mg Capsule, 100 MG PO QHS, (Reported) Escitalopram Oxalate (Escitalopram Oxalate) 10 Mg Tablet, 10 MG PO DAILY, (Reported) Folic Acid (Folic Acid) 1 Mg Tablet, 1 MG PO DAILY, (Reported) Gabapentin (Gabapentin) 800 Mg Tablet, 800 MG PO TID, (Reported) Methadone HCl (Methadone HCl) 10 Mg/1 Ml Oral.conc, 145 MG PO DAILY, (Reported) Mirtazapine (Mirtazapine) 15 Mg Tab.rapdis, 15 MG PO QHS, (Reported) Sulfamethoxazole/Trimethoprim (Bactrim Ds Tablet) 1 Each Tablet, 1 TAB PO BID Thiamine HCl (Thiamine HCl) 100 Mg Tablet, 100 MG PO DAILY, (Reported) Vancomycin HCl (Firvanq) 50 Mg/1 Ml Soln.recon, 125 MG PO Q6H Scheduled PRN Docusate Sodium (Colace) 100 Mg Capsule, 100 MG PO BID PRN for CONSTIPATION, (Reported) Ibuprofen (Ibuprofen) 800 Mg Tablet, 800 MG PO TID PRN for PAIN, (Reported) Allergies Coded Allergies: Penicillins (Verified Allergy, Unknown, 02/12/19) Social History Social History Denies tobacco, alcohol, or illicit substance abuse. Review of Systems Subjective Musculoskeletal: Reports: leg pain (bilateral ) Physical Examination Physical Examination Vital Signs/I&O Vital Signs Date Time Temp Pulse Resp B/P (MAP) Pulse Ox O2 Delivery O2 Flow Rate FiO2 09/08/19 14:00 98.2 60 17 136/74 (94) 94 Room Air I&O- Last 24 Hours up to 6 AM0 09/08/19 06:00 Intake Total 500 ml Output Total 0 ml Balance 500 ml General Exam: Positive: alert, attentive, moderate distress, oriented times three Chest Exam: Positive: Clear to auscultation Heart Exam: Positive: Regular rate and rhythm Laboratory Data Labs 24H Laboratory Tests 2 09/07/19 15:26: Immature Granulocyte % (Auto) 0.5, Neutrophils (%) (Auto) 64.7, Lymphocytes (%) (Auto) 23.2L, Monocytes (%) (Auto) 8.3H, Eosinophils (%) (Auto) 2.6, Basophils (%) (Auto) 0.7, Neutrophils # (Auto) 5.6, Lymphocytes # (Auto) 2.0, Monocytes # (Auto) 0.7, Eosinophils # (Auto) 0.2, Basophils # (Auto) 0.1, Nucleated Red Blood Cells % (auto) 0.0, Erythrocyte Sedimentation Rate 25H, C-Reactive Protein, Quantitative 4.55H 09/07/19 15:27: Anion Gap 11, Glomerular Filtration Rate > 60.0, Lactic Acid Level 2.3*H, Calcium Level 9.1, Total Bilirubin 0.2, Aspartate Amino Transf (AST/SGOT) 22, Alanine Aminotransferase (ALT/SGPT) 42, Alkaline Phosphatase 103, Total Protein 6.8, Albumin 3.6, Albumin/Globulin Ratio 1.13 09/07/19 17:28: Methicillin-Resist S.aureus DNA PCR NOT DETECTED 09/07/19 18:19: Immature Granulocyte % (Auto) 0.3, Neutrophils (%) (Auto) 61.9, Lymphocytes (%) (Auto) 24.7, Monocytes (%) (Auto) 9.9H, Eosinophils (%) (Auto) 2.6, Basophils (%) (Auto) 0.6, Neutrophils # (Auto) 5.5, Lymphocytes # (Auto) 2.2, Monocytes # (Auto) 0.9H, Eosinophils # (Auto) 0.2, Basophils # (Auto) 0.1, Nucleated Red Blood Cells % (auto) 0.0, Anion Gap 7L, Glomerular Filtration Rate > 60.0, Calcium Level 8.8, Magnesium Level 2.1, WX-Als-S-Type Natriuretic Peptide 64 09/07/19 19:07: Clostridium difficile [id number] PRESUMPTIVE NEGATIVE, Clostridium difficile Toxin (PCR) POSITIVEA 09/07/19 19:50: Lactic Acid Followup at 4 Hours 1.3 09/08/19 12:39: Immature Granulocyte % (Auto) 0.4, Neutrophils (%) (Auto) 50.1, Lymphocytes (%) (Auto) 33.7, Monocytes (%) (Auto) 8.6H, Eosinophils (%) (Auto) 6.6H, Basophils (%) (Auto) 0.6, Neutrophils # (Auto) 2.7, Lymphocytes # (Auto) 1.8, Monocytes # (Auto) 0.5, Eosinophils # (Auto) 0.4, Basophils # (Auto) 0.0, Nucleated Red Blood Cells % (auto) 0.0 CBC/BMP Laboratory Tests 09/07/19 15:26 09/07/19 15:27 09/07/19 18:19 09/08/19 12:39 Microbiology Microbiology 09/07/19 Blood Culture, Received Pending 09/07/19 Blood Culture, Received Pending Assessment Given presenting symptoms and results of physical examination recommend [place] 5/325mg 2 tabs every 6 hrs as needed for pain. Recommendation and Plan Thank you for allowing us to participate in the care of your patient. Should you have any questions we will be glad to discuss this with you at any time please contact us here at the pain center at [phone]. EDWARD CARBAJAL Sep 08, 2019 15:28
[2019-09-08 19:26] VITALS: BP 141/74
[2019-09-08 20:09] LABS: BLOOD UREA NITROGEN 15 MG/DL (7-18); GLUCOSE, FASTING 101 MG/DL (70-100)
[2019-09-08 20:10] LABS: CALCIUM LEVEL 8.8 MG/DL (8.5-10.1); CARBON DIOXIDE LEVEL 30 MEQ/L (21-32); CHLORIDE LEVEL 105 MEQ/L (98-107); CREATININE FOR GFR 0.81 MG/DL (0.70-1.30); GLOMERULAR FILTRATION RATE > 60.0 (>60); POTASSIUM SERUM 3.9 MEQ/L (3.5-5.1); SODIUM LEVEL 142 MEQ/L (136-145)
[2019-09-08] MEDS: BACTRIM 160MG/800MG DS TAB PO SCH (21:10)
[2019-09-08] MEDS: MIRTAZAPINE 15 MG TAB PO SCH (21:10)
[2019-09-08] MEDS ORDERED: diphenhydrAMINE INJ 50MG/ML VIAL (J1200) IV ONE (22:00)
[2019-09-08] MEDS: NORCO, ANEXSIA 5/325MG TABLET (HYDROcodone/ACETAMINOPHEN) PO PRN (23:56)
[2019-09-09 06:18] VITALS: BP 127/73
[2019-09-09] MEDS: VANCOMYCIN ORAL SOL 250MG/5ML ORAL SYRINGE PO SCH ×2 (06:22→12:36)
[2019-09-09] MEDS: NORCO, ANEXSIA 5/325MG TABLET (HYDROcodone/ACETAMINOPHEN) PO PRN ×2 (06:22→12:36)
[2019-09-09] MEDS ORDERED: metOLazone 5 MG TAB PO ONE (08:00)
[2019-09-09] MEDS ORDERED: FUROSEMIDE 40 MG/4 ML VIAL (J1940) IV ONE (09:00)
[2019-09-09] MEDS: BACTRIM 160MG/800MG DS TAB PO SCH (09:57)
[2019-09-09] MEDS: METHADONE 10 MG TAB (S0109) PO SCH (09:57)
[2019-09-09] MEDS: ESCITALOPRAM OXALATE 10 MG TAB (LEXAPRO) PO SCH (09:57)
[2019-09-09] MEDS: LACTOBACILLUS ACIDOPHILUS CAP (BACID) PO SCH ×2 (09:58→12:35)
[2019-09-09] MEDS: FOLIC ACID 1 MG TAB PO SCH (09:58)
[2019-09-09] MEDS: GABAPENTIN 400 MG CAP PO SCH (09:58)
[2019-09-09] MEDS: THIAMINE 100 MG TAB PO SCH (09:58)
--- NOTE | 2019-09-09 10:12 | IPN ---
DATE OF SERVICE: 09/09/2019 SUBJECTIVE: The patient's pain is controlled. He denies any fevers overnight. Doing well at this time. Maintaining leg elevation. VITAL SIGNS: Stable. BILATERAL LOWER EXTREMITY EXAM: It appears that the significant amount of swelling has resolved along with the erythema surrounding the areas of healing by secondary intention on the bilateral legs. There is still some drainage, but it appears to be serous, more exudative. He is neurovascularly intact distally. ASSESSMENT AND PLAN: Based on these findings and his improvement in his clinical exam, I do believe at this point that this is more of a dependent edema issue. Therefore, I would really like to have the patient wear compression stockings at all times. Will give him one more clinical check tomorrow morning with repeat lab work of CBC, ESR and CRP. As long as he maintains his improvement, we will be able to discharge home without antibiotics other than for his Clostridium difficile. I would like to see him in my office in 2 weeks. We are hoping to rearrange his methadone dosing to a more local company, [email or web address], as to eliminate the hour and a half drive. If this does become an issue where he has to maintain his dosing in [place], then we will have to reach out to [employer] and ask if they can either give him larger doses at once or find a way to allow him to travel with his legs not in the dependent position during that ride, because I believe an hour and a half each, so for a total of 3 hours each day, is unreasonable given his medical condition and that it is worsening his healing and is also going to decrease the rate of healing from his bilateral lower extremities. He is to weight bear as tolerated on bilateral lower extremities. Appreciate medicine management of his pain. I will repeat check on him tomorrow.
[2019-09-09] MEDS ORDERED: HYDR-4571 PO (10:31)
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
== END 2019-09-09 13:20 | disposition home or self-care (01) | DRG 197 ==
LOC: M MS5PR 15:01
PROVIDERS: ADMIT Orthopaedic Surgery Hand Surgery; ATTEND General Practice
DX: I87.2 Venous insufficiency (chronic) (peripheral) (principal); A04.72 Enterocolitis due to Clostridium difficile, not specified as recurrent; G62.9 Polyneuropathy, unspecified; F10.10 Alcohol abuse, uncomplicated; F43.10 Post-traumatic stress disorder, unspecified; F39 Unspecified mood [affective] disorder; F11.10 Opioid abuse, uncomplicated; K59.00 Constipation, unspecified; Z79.899 Other long term (current) drug therapy; Z79.82 Long term (current) use of aspirin; G47.00 Insomnia, unspecified

== ENCOUNTER → 2019-09-27 | Outpatient (REF) | payer OTHER ==
[~2019-09-27] MED LIST changes: +ASPI81TA26 PO; +BACI1CAP PO; +BACT800T5 PO; +FIRV50SO PO; +HYDR-4571 PO; +IBUP1TAB7 PO; +METH10CO PO; +MIRT1TAB15 PO; +THIA100T7 PO
[2019-09-27 12:21] LABS: BASO % 0.6 % (0.0-1.0); EOS # 0.1 10^3/uL (0.0-0.5); EOS % 2.1 % (0.0-3.0); HEMATOCRIT 43.1 % (42.0-52.0); HEMOGLOBIN 13.4 g/dl (13.5-17.5); LYMPH # 1.9 10^3/uL (1.5-5.0); MEAN CORPUSCULAR HEMOGLOBIN 27.7 pg (27.0-33.0); MEAN CORPUSCULAR HGB CONC 31.1 g/dl (32.0-36.5); MEAN CORPUSCULAR VOLUME 89.2 fl (80.0-96.0); MONO # 0.5 10^3/uL (0.0-0.8); MONO % 7.8 % (0.0-5.0); NEUTROPHILS % 60.6 % (36.0-66.0); PLATELET COUNT, AUTOMATED 294 10^3/uL (150-450); RED BLOOD COUNT 4.83 10^6/uL (4.30-6.10); WHITE BLOOD COUNT 6.7 10^3/uL (4.0-10.0)
[2019-09-27 12:55] LABS: ERYTHROCYTE SEDIMENTATION RATE 9 mm/hr (0-15)
== END ==
LOC: M LABDRAW1 11:28
PROVIDERS: ATTEND Orthopaedic Surgery
DX: S81.802A Unspecified open wound, left lower leg, initial encounter (principal); Y92.9 Unspecified place or not applicable; Y93.9 Activity, unspecified; Y99.9 Unspecified external cause status

== ENCOUNTER → 2020-02-15 | Outpatient (REF) | payer OTHER ==
[~2020-02-15] MED LIST changes: +CYCL-707 PO; -CYCL10TA PO
[2020-02-15 13:51] LABS: BASO % 0.8 % (0.0-1.0); EOS # 0.1 10^3/uL (0.0-0.5); EOS % 2.7 % (0.0-3.0); HEMATOCRIT 47.6 % (42.0-52.0); HEMOGLOBIN 15.8 g/dl (13.5-17.5); LYMPH # 1.8 10^3/uL (1.5-5.0); LYMPH % 34.4 % (24.0-44.0); MEAN CORPUSCULAR HEMOGLOBIN 30.9 pg (27.0-33.0); MEAN CORPUSCULAR HGB CONC 33.2 g/dl (32.0-36.5); MEAN CORPUSCULAR VOLUME 93.2 fl (80.0-96.0); MONO # 0.4 10^3/uL (0.0-0.8); NEUTROPHILS # 2.8 10^3/uL (1.5-8.5); NEUTROPHILS % 54.7 % (36.0-66.0); PLATELET COUNT, AUTOMATED 195 10^3/uL (150-450); RED BLOOD COUNT 5.11 10^6/uL (4.30-6.10); WHITE BLOOD COUNT 5.1 10^3/uL (4.0-10.0)
[2020-02-15 14:26] LABS: TOTAL 25(OH) VITAMIN D 15.2 NG/ML (30.0-100.0)
[2020-02-15 14:53] LABS: ALBUMIN 4.1 GM/DL (3.2-5.2); ALT/SGPT 211 U/L (12-78); BILIRUBIN,TOTAL 0.8 MG/DL (0.2-1.0); BLOOD UREA NITROGEN 13 MG/DL (7-18); CALCIUM LEVEL 9.4 MG/DL (8.5-10.1); CARBON DIOXIDE LEVEL 27 MEQ/L (21-32); CHLORIDE LEVEL 106 MEQ/L (98-107); CHOLESTEROL LEVEL 234 MG/DL (<200); CHOLESTEROL RISK RATIO 4.978 (<5); CREATININE FOR GFR 1.04 MG/DL (0.70-1.30); FREE T4 1.07 NG/DL (0.76-1.46); GLOMERULAR FILTRATION RATE > 60.0 (>60); GLUCOSE, FASTING 113 MG/DL (70-100); HDL CHOLESTEROL 47 MG/DL (>40); NON-HDL-C 187 MG/DL; POTASSIUM SERUM 3.8 MEQ/L (3.5-5.1); SODIUM LEVEL 139 MEQ/L (136-145); TOTAL PROTEIN 7.8 GM/DL (6.4-8.2); TRIGLYCERIDES LEVEL 475 MG/DL (<150)
[2020-02-15 17:20] LABS: HEMOGLOBIN A1c 5.6 %
== END ==
LOC: M LAB REF 13:03
PROVIDERS: ATTEND Nurse Practitioner Family
DX: R03.0 Elevated blood-pressure reading, without diagnosis of hypertension (principal); Z13.9 Encounter for screening, unspecified; M79.604 Pain in right leg; F11.21 Opioid dependence, in remission; F17.210 Nicotine dependence, cigarettes, uncomplicated

== ENCOUNTER → 2020-03-21 | Outpatient (CLI) | payer OTHER ==
[~2020-03-21] MED LIST changes: -ASPI81TA85 PO; +ASPI81TA86 PO
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
== END ==
LOC: M PAIN 11:15
PROVIDERS: ATTEND Family Medicine
DX: M79.661 Pain in right lower leg (principal); M79.662 Pain in left lower leg; Z53.9 Procedure and treatment not carried out, unspecified reason

== ENCOUNTER → 2020-04-12 | Outpatient (CLI) | payer OTHER ==
--- NOTE | 2020-04-18 01:41 | ECWPNPC ---
PATIENT NAME: JOANNA ADLER : 1980 GENDER: MALE VISIT DATE: 04/12/2020 DISCHARGE DATE: 04/12/20 1053 VISIT LOCKED DATE TIME: PHYSICIAN: NOÉ CARBAJAL RESOURCE: NOÉ CARBAJAL REASON FOR APPOINTMENT 1. BILATERAL LEG PAIN HISTORY OF PRESENT ILLNESS GENERAL: - 39-YEAR-OLD MALE IN FOR CHRONIC PAIN FOLLOW-UP. HE RATES HIS PAIN CURRENTLY AT A 7 OUT OF 10 AND DESCRIBES IT THROBBING SHOOTING BURNING AND CONTINUOUS. PATIENT WOULD LIKE TO DISCUSS AN INCREASE IN HIS GABAPENTIN. FALL RISK SCREENING: SCREENING :ONE FALL WITH INJURY IN THE PAST YEAR FALL WITH FEELING LIKE TWISTED PREVIOUSLY WITH LEFT LEG INJURY PAIN SCREENING: PATIENT HAS A COMPLAINT OF ACUTE OR CHRONIC PAIN :YES LOCATION OF PAIN:LEG(S), HEAD, ANKLE(S), FEET INTENSITY OF PAIN (SCALE OF 1 TO 10):7 WHAT DOES YOUR PAIN FEEL LIKE:THROBBING, SHOOTING, BURNING, CONTINOUS DURATION:CONTINOUS PAIN IS INCREASED BY:ACTIVITIES, PROLONGED STANDING, OTHERS AMBULATION, STEPS PAIN IS DECREASED BY:USE OF PAIN MEDICATIONS GABAPENTIN PAIN HAS INTERFERED WITH THE FOLLOWING:WALKING ABILITY, MOOD, RELATIONSHIP WITH OTHERS, ENJOYMENT OF LIFE PLAN/GOALS/TREATMENT/INTERVENTION/FOLLOW UP:SEE PLAN NURSING NOTE: -. PAIN CENTER INTAKE QUESTIONS: DO YOU HAVE A HISTORY OF MRSA? :NO DO YOU TAKE A BLOOD THINNERS? :NO DO YOU HAVE ANY BLEEDING DISORDERS? :NO ANY NEW NUMBNESS OR WEAKNESS IN YOUR LEGS OR ARMS? :NO ANY PACEMAKER,DEFIBRILLATOR, OR DORSAL COLUMN STIMULATOR? :NO DO YOU HAVE ANY RASHES OR OPEN SORES? :YES BILATERAL TIBULA/FIBULA FRACTURES OPEN SURGICAL WOUNDS NEED TO BE FIXED BY (ORTHOPEDIC) ARE YOU ALLERGIC TO IV DYE? :NO ARE YOU DIABETIC? :NO ANY NEW PROBLEMS WITH YOUR MEDICATIONS? :NO HAVE YOU RECEIVED A VACCINE IN THE PAST 30 DAYS? :NO DO YOU PLAN TO RECEIVE A VACCINE IN THE NEXT 21 DAYS? :NO DO YOU NEED ANY PRESCRIPTION? :YES GABAPENTIN DO YOU TAKE ANY IMMUNOSUPPRESSIVE MEDICATIONS? :NO IS THERE A CHANCE YOU COULD BE ? :NO ARE YOU BREAST FEEDING? :NO CURRENT MEDICATIONS TAKING ASPIR-81 TAKING DIPHENHYDRAMINE 1 TAB ORAL TAKING METHADONE HCL 10 MG/ML CONCENTRATE 160 ORALLY EVERY 12 HRS TAKING MIRTAZAPINE 15 MG TABLET 1 TABLET AT BEDTIME ORALLY ONCE A DAY TAKING GABAPENTIN 600 MG TABLET 1 TABLET ORALLY IN AM, AFTERNOON, AND 2 AT BEDTIME TID NOT-TAKING BACILLUS COAGULANS-INULIN - CAPSULE DIRECTED ORALLY NOT-TAKING ESCITALOPRAM OXALATE 10 MG TABLET 1 TABLET ORALLY ONCE A DAY NOT-TAKING FOLIC ACID 1 MG TABLET 1 TABLET ORALLY ONCE A DAY NOT-TAKING SULFAMETHOXAZOLE-TRIMETHOPRIM 400-80 MG TABLET 1 TABLET ORALLY ONCE A DAY NOT-TAKING THIAMINE HCL 100 MG TABLET 1 TABLET ORALLY ONCE A DAY NOT-TAKING VANCOMYCIN+SYRSPEND SF 50 MG/ML SUSPENSION 10 ML ORALLY EVERY 6 HRS MEDICATION LIST REVIEWED AND RECONCILED WITH THE PATIENT PAST MEDICAL HISTORY HYPERTENSION ALLERGIES PENICILLINS SURGICAL HISTORY BOTH LEG SURGERY JUNE AND JULY 2019 TONSILLECTOMY 1988 FAMILY HISTORY FATHER: , DIAGNOSED WITH OTHER MALIGNANT NEOPLASM OF UNSPECIFIED SITE MOTHER: ALIVE SIBLINGS: ALIVE SOCIAL HISTORY GENERAL: TOBACCO USE ARE YOU A:CURRENT SMOKER ARE YOU INTERESTED IN QUITTING?THINKING ABOUT QUITTING PREVIOUS QUIT ATTEMPTS?YES, WITHIN THE LAST 6 MONTHS. COUNSELED THE PATIENT ON SMOKING CESSATION, EDUCATION [id number]/15/2020 HOW MANY CIGARETTES A DAY DO YOU SMOKE?11-20 HOW SOON AFTER YOU WAKE UP DO YOU SMOKE YOUR FIRST CIGARETTE?AFTER 60 MIN HOW OFTEN DO YOU SMOKE CIGARETTES?EVERY DAY PATIENT COUNSELED ON THE DANGERS OF TOBACCO USE AND URGED TO QUIT:04/12/2020 SMOKING CESSATION INFORMATION GIVEN04/12/2020 LATEX QUESTIONNAIRE LATEX ALLERGY : HAVE YOU EVER DEVELOPED ANY TYPE OF REACTION AFTER HANDLING LATEX PRODUCTS SUCH RUBBER GLOVES, CONDOMS, DIAPHRAGMS, BALLOONS, SOCKS, OR UNDERWEAR?NO LATEX ALLERGY : HAVE YOU EVER DEVELOPED ANY TYPE OF REACTION DURING OR AFTER DENTAL APPOINTMENT, VAGINAL/RECTAL EXAMINATION, SURGICAL PROCEDURE, OR ANY OTHER EXPOSURE?NO LATEX RISK : HAVE YOU EVER HAD ANY DIFFICULTY BREATHING OR HIVES AFTER EATING OR HANDLING ANY FRUITS, OR VEGETABLES; SUCH KIWI, BANANAS, STONE FRUITS, OR CHESTNUTSNO LATEX RISK : DO YOU HAVE A PREVIOUS PERSONAL HISTORY OF MORE THAN NINE SURGERIES, SPINA BIFIDA, OR REPEATED CATHERIZATIONS? NO LATEX RISK : ARE YOU FREQUENTLY EXPOSED TO LATEX PRODUCTS IN YOUR OCCUPATION?NO DATE ASKED : 04/12/2020 ALCOHOL SCREENING DID YOU HAVE A DRINK CONTAINING ALCOHOL IN THE PAST YEAR?YES HOW OFTEN DID YOU HAVE SIX OR MORE DRINKS ON ONE OCCASION IN THE PAST YEAR?NEVER (0 POINTS) HOW MANY DRINKS DID YOU HAVE ON A TYPICAL DAY WHEN YOU WERE DRINKING IN THE PAST YEAR?1 OR 2 (0 POINTS) HOW OFTEN DID YOU HAVE A DRINK CONTAINING ALCOHOL IN THE PAST YEAR?MONTHLY OR LESS (1 POINT) POINTS1 INTERPRETATIONNEGATIVE RECREATIONAL DRUG USE DRUG USE?NO CAFFEINE CAFFEINE USE?NO LEARNING BARRIERS / SPECIAL NEEDS CHANGE FROM LAST VISIT?NO BARRIERS TO LEARNING?NO HEARING IMPAIRED?NO VISION IMPAIRED?NO COGNITIVELY IMPAIRED?NO READINESS TO LEARN?YES LEARNING PREFERENCES?NO LEARNING CAPABILITIES PRESENT?YES EMOTIONAL BARRIERS?NO SPECIAL DEVICES?YES :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 OTHERS AT HOME: SIGNIFICANT OTHER. NEW PATIENT PAIN DIARY PATIENT DESCRIBES PAIN :SHOOTING FROM 0-10, WHAT LEVEL IS YOUR PAIN TODAY?7 PAIN CLINIC PFS, CLERGY, PUBLIC HEALTH REFERRALS PFS REFERRAL NEEDED?NO CLERGY REFERRAL NEEDED?NO PUBLIC HEALTH REFERRAL NEEDED?NO WAS THE PROVIDER NOTIFIED OF ANY PERTINENT INFO?YES HAS THE PATIENT BEEN EDUCATED REGARDING HIS/HER PLAN OF CARE?YES HAS THE PATIENT BEEN EDUCATED REGARDING PAIN, THE RISK FOR PAIN, THE IMPORTANCE OF EFFECTIVE PAIN MANAGEMENT, AND THE PAIN ASSESSMENT PROCESS?YES HOSPITALIZATION/MAJOR DIAGNOSTIC PROCEDURE ABOVE REVIEW OF SYSTEMS CONSTITUTIONAL: ANY RECENT FEVER NO . CHILLS NO . WEIGHT CHANGE OF UNKNOWN REASONS NO . GASTROENTEROLOGY: NEW UNEXPLAINABLE CHANGES IN BOWEL CONTROL NO . CONSTIPATION NO . GENITOURINARY: ANY NEW CHANGE IN BLADDER CONTROL? NO . NEUROLOGY: NEW ONSET DIZZINESS OR NEUROLOGICAL CHANGES NOT MENTIONED NO . NEW NUMBNESS OR PAIN PATTERNS NOT MENTIONED AND PERTINENT TO TODAY'S VISIT NO . CARDIOLOGY: NEW CHEST PRESSURE NO . NEW CHEST PAIN NO . RESPIRATORY: UNEXPLAINABLE COUGH NO . NEW SHORTNESS OF BREATH NO . VITAL SIGNS WT 311.8 LBS, HT 72IN, BMI 42.28 INDEX, BP 148/82 MM HG, HR 82 /MIN, RR 20 /MIN, TEMP 95.8 F, OXYGEN SAT % 95%, SAFE IN ENV? (Y/N) Y, NA INITIALS DC 09:59, REVIEWED BY: MT. EXAMINATION GENERAL EXAMINATION: GENERALNO ACUTE DISTRESS, WELL NOURISHED AND HYDRATED. PSYCHAPPROPRIATE MOOD AND AFFECT . LUNGS:CLEAR TO AUSCULTATION BILATERALLY, NO WHEEZES, RHONCHI, RALES. HEART:NO MURMURS, REGULAR RATE AND RHYTHM. ASSESSMENTS PAIN IN LEG, UNSPECIFIED - M79.606 (PRIMARY) TREATMENT PAIN IN LEG, UNSPECIFIED INCREASE GABAPENTIN TABLET, 800 MG, 1 TABLET, ORALLY, TID, 30 DAYS, 90 START DICLOFENAC SODIUM TABLET DELAYED RELEASE, 50 MG, 1 TABLET, ORALLY, TWICE A DAY, 30 DAY(S), 60 START BACLOFEN TABLET, 10 MG, 0.5 TAB TID X 5 DAYS THEN 1 TABLET WITH FOOD OR MILK, 90, THREE TIMES A DAY, 30 DAY(S), 90 CLINICAL NOTES: 39-YEAR-OLD MALE IN FOR CHRONIC PAIN FOLLOW-UP. GIVEN PRESENTING SYMPTOMS RECOMMEND INCREASING GABAPENTIN 800 MG 3 TIMES A DAY, AND STARTING DICLOFENAC 50 MG TWICE A DAY, AND BACLOFEN 10 MG 3 TIMES A DAY WITH FOLLOW-UP IN ONE MONTH TO DETERMINE EFFICACY OF TREATMENT. PATIENT HAS EXPRESSED UNDERSTANDING OF AND WAS IN AGREEMENT WITH TREATMENT PLAN. GIVEN TIME TO ASK QUESTIONS AND EXPRESS CONCERNS. . PREVENTIVE MEDICINE PAIN CLINIC TEACHING: THE PATIENT HAS BEEN EDUCATED REGARDING PAIN, THE RISK FOR PAIN, THE IMPORTANCE OF EFFECTIVE PAIN MANAGEMENT, AND THE PAIN ASSESSMENT PROCESS. : PATIENT GIVEN TEACHING ON NEW MEDICATIONS GABAPENTIN, DICLOFENAC DR TABLETS AND PRINT OUT ON GABAPENTIN DUE TO INCREASE OF MEDICATION, PATIENT VERBALIZES UNDERSTANDING OF TEACHING, PROCEDURE CODES FA211 ESTABILISHED PATIENT [facility] CHARGE DISPOSITION & COMMUNICATION FOLLOW UP 4 WEEKS (REASON: LEG PAIN, NEW MEDICATION) ELECTRONICALLY SIGNED BY ADELIA LAMB ON 04/17/2020 AT 03:08 PM EDT DISCLAIMER : THIS IS A VISIT SUMMARY EXTRACTED FROM THE [employer] CHART. IT IS NOT A COPY OF THE [employer] PROGRESS NOTE. MTDD
== END ==
LOC: M PAIN 10:00
PROVIDERS: ATTEND Family Medicine
DX: M79.606 Pain in leg, unspecified (principal)

== ENCOUNTER → 2020-05-10 | Outpatient (CLI) | payer OTHER | LOC: M PAIN 13:15 | PROVIDERS: ATTEND Family Medicine | DX: M79.606 Pain in leg, unspecified (principal) ==

== ENCOUNTER → 2020-05-24 | Outpatient (CLI) | payer OTHER ==
[2020-05-24 08:20] LABS: HEMOGLOBIN 15.8 g/dl (13.5-17.5); MEAN CORPUSCULAR HEMOGLOBIN 32.1 pg (27.0-33.0); MEAN CORPUSCULAR HGB CONC 33.6 g/dl (32.0-36.5); MEAN CORPUSCULAR VOLUME 95.5 fl (80.0-96.0); RED BLOOD COUNT 4.92 10^6/uL (4.30-6.10); WHITE BLOOD COUNT 5.4 10^3/uL (4.0-10.0)
[2020-05-24 09:07] LABS: PLATELET COUNT, AUTOMATED 139 10^3/uL (150-450)
[2020-05-24 09:30] LABS: CHLAMYDIA DNA AMPLIFICATION NEGATIVE (NEGATIVE); GC DNA AMPLIFICATION NEGATIVE (NEGATIVE)
[2020-05-24 10:23] LABS: ALBUMIN 3.9 GM/DL (3.2-5.2); ALT/SGPT 123 U/L (12-78); BILIRUBIN,TOTAL 0.7 MG/DL (0.2-1.0); BLOOD UREA NITROGEN 10 MG/DL (7-18); CALCIUM LEVEL 9.5 MG/DL (8.5-10.1); CARBON DIOXIDE LEVEL 28 MEQ/L (21-32); CHLORIDE LEVEL 104 MEQ/L (98-107); CREATININE FOR GFR 0.96 MG/DL (0.70-1.30); GLOMERULAR FILTRATION RATE > 60.0 (>60); GLUCOSE, FASTING 97 MG/DL (70-100); HEPATITIS B SURFACE ANTIGEN NEGATIVE (NEGATIVE); HIV 1&2 SCREEN CENTAUR NEGATIVE (NEGATIVE); SODIUM LEVEL 139 MEQ/L (136-145); TOTAL PROTEIN 7.5 GM/DL (6.4-8.2)
[2020-05-24 10:25] LABS: HEPATITIS C VIRUS ABY INDEX 9.8 INDEX (<0.8)
== END ==
LOC: M LAB 07:05
PROVIDERS: ATTEND Family Medicine
DX: F11.10 Opioid abuse, uncomplicated (principal)

== ENCOUNTER → 2021-03-29 | Outpatient (CLI) | payer OTHER ==
[~2021-03-29] MED LIST changes: +ESCI10TA16 PO; -ESCI10TA2 PO; +GABA-282 PO; -GABA-843 PO; +MIRT-62 PO; -PEG1POW PO; +POLY17PO18 PO; -REME15TA PO
--- NOTE | 2021-03-31 04:09 | ECWPNPC ---
PATIENT NAME: OJANNA ADLER : 1980 GENDER: MALE VISIT DATE: 03/29/2021 DISCHARGE DATE: 03/29/21 1130 VISIT LOCKED DATE TIME: PHYSICIAN: NOÉ CARBAJAL RESOURCE: NOÉ CARBAJAL REASON FOR APPOINTMENT 1. LEG PAIN HISTORY OF PRESENT ILLNESS GENERAL: HPI 40-YEAR-OLD MALE IN FOR CHRONIC PAIN FOLLOW-UP. HE RATES HIS PAIN CURRENTLY AT A 6 OUT OF 10 AND DESCRIBES IT ACHING, BURNING, AND CONTINUOUS. PATIENT WAS ON BACLOFEN PREVIOUSLY AND ADMITS THAT THIS WAS NOT BENEFICIAL. WE'LL DISCUSS ALTERNATIVES TODAY.. -. FALL RISK SCREENING: SCREENING TWO FALLS REPORTED IN THE LAST YEAR WITH INJURY. PATIENT DENIES MEDICAL TREATMENT.. PAIN SCREENING: PATIENT HAS A COMPLAINT OF ACUTE OR CHRONIC PAIN :YES LOCATION OF PAIN:LEG(S) INTENSITY OF PAIN (SCALE OF 1 TO 10):6 WHAT DOES YOUR PAIN FEEL LIKE:ACHING, BURNING, CONTINOUS, THROBBING DURATION:CONTINOUS, CONSTANT, AWAKENS FROM SLEEP PAIN IS INCREASED BY:ACTIVITIES, PROLONGED STANDING PAIN IS DECREASED BY:SITTING GABAPENTIN NURSING NOTE: -. PAIN CENTER INTAKE QUESTIONS: DO YOU HAVE A HISTORY OF MRSA? :NO DO YOU TAKE A BLOOD THINNERS? :NO DO YOU HAVE ANY BLEEDING DISORDERS? :NO ANY NEW NUMBNESS OR WEAKNESS IN YOUR LEGS OR ARMS? :NO ANY PACEMAKER,DEFIBRILLATOR, OR DORSAL COLUMN STIMULATOR? :NO DO YOU HAVE ANY RASHES OR OPEN SORES? :NO ARE YOU ALLERGIC TO IV DYE? :NO ARE YOU DIABETIC? :NO ANY NEW PROBLEMS WITH YOUR MEDICATIONS? :NO HAVE YOU RECEIVED A VACCINE IN THE PAST 30 DAYS? :NO DO YOU PLAN TO RECEIVE A VACCINE IN THE NEXT 21 DAYS? :NO DO YOU NEED ANY PRESCRIPTION? :YES GABAPENTIN DO YOU TAKE ANY IMMUNOSUPPRESSIVE MEDICATIONS? :NO IS THERE A CHANCE YOU COULD BE ? :NO ARE YOU BREAST FEEDING? :NO CURRENT MEDICATIONS TAKING ASPIR-81 TAKING DIPHENHYDRAMINE 1 TAB ORAL TAKING METHADONE HCL 10 MG/ML CONCENTRATE 160 ORALLY EVERY 12 HRS TAKING MIRTAZAPINE 15 MG TABLET 1 TABLET AT BEDTIME ORALLY ONCE A DAY TAKING GABAPENTIN 800 MG TABLET 1 TABLET ORALLY TID NOT-TAKING DICLOFENAC SODIUM 50 MG TABLET DELAYED RELEASE 1 TABLET ORALLY TWICE A DAY NOT-TAKING BACLOFEN 10 MG TABLET 0.5 TAB TID X 5 DAYS THEN 1 TABLET WITH FOOD OR MILK 90 THREE TIMES A DAY NOT-TAKING BACILLUS COAGULANS-INULIN - CAPSULE DIRECTED ORALLY NOT-TAKING ESCITALOPRAM OXALATE 10 MG TABLET 1 TABLET ORALLY ONCE A DAY NOT-TAKING FOLIC ACID 1 MG TABLET 1 TABLET ORALLY ONCE A DAY NOT-TAKING SULFAMETHOXAZOLE-TRIMETHOPRIM 400-80 MG TABLET 1 TABLET ORALLY ONCE A DAY NOT-TAKING THIAMINE HCL 100 MG TABLET 1 TABLET ORALLY ONCE A DAY NOT-TAKING VANCOMYCIN+SYRSPEND SF 50 MG/ML SUSPENSION 10 ML ORALLY EVERY 6 HRS MEDICATION LIST REVIEWED AND RECONCILED WITH THE PATIENT PAST MEDICAL HISTORY HYPERTENSION ALLERGIES PENICILLINS SOCIAL HISTORY GENERAL: TOBACCO USE ARE YOU A:CURRENT SMOKER ARE YOU INTERESTED IN QUITTING?THINKING ABOUT QUITTING PREVIOUS QUIT ATTEMPTS?YES, WITHIN THE LAST 6 MONTHS. COUNSELED THE PATIENT ON SMOKING CESSATION, EDUCATION [id number]/01/2021 HOW MANY CIGARETTES A DAY DO YOU SMOKE?11-20 HOW SOON AFTER YOU WAKE UP DO YOU SMOKE YOUR FIRST CIGARETTE?AFTER 60 MIN HOW OFTEN DO YOU SMOKE CIGARETTES?EVERY DAY PATIENT COUNSELED ON THE DANGERS OF TOBACCO USE AND URGED TO QUIT:03/29/2021 SMOKING CESSATION INFORMATION GIVEN04/12/2020 LATEX QUESTIONNAIRE LATEX ALLERGY : HAVE YOU EVER DEVELOPED ANY TYPE OF REACTION AFTER HANDLING LATEX PRODUCTS SUCH RUBBER GLOVES, CONDOMS, DIAPHRAGMS, BALLOONS, SOCKS, OR UNDERWEAR?NO LATEX ALLERGY : HAVE YOU EVER DEVELOPED ANY TYPE OF REACTION DURING OR AFTER DENTAL APPOINTMENT, VAGINAL/RECTAL EXAMINATION, SURGICAL PROCEDURE, OR ANY OTHER EXPOSURE?NO LATEX RISK : HAVE YOU EVER HAD ANY DIFFICULTY BREATHING OR HIVES AFTER EATING OR HANDLING ANY FRUITS, OR VEGETABLES; SUCH KIWI, BANANAS, STONE FRUITS, OR CHESTNUTSNO LATEX RISK : DO YOU HAVE A PREVIOUS PERSONAL HISTORY OF MORE THAN NINE SURGERIES, SPINA BIFIDA, OR REPEATED CATHERIZATIONS? NO LATEX RISK : ARE YOU FREQUENTLY EXPOSED TO LATEX PRODUCTS IN YOUR OCCUPATION?NO DATE ASKED : 03/29/2021 ALCOHOL USE: NO. ALCOHOL SCREENING DID YOU HAVE A DRINK CONTAINING ALCOHOL IN THE PAST YEAR?YES HOW OFTEN DID YOU HAVE SIX OR MORE DRINKS ON ONE OCCASION IN THE PAST YEAR?NEVER (0 POINTS) HOW MANY DRINKS DID YOU HAVE ON A TYPICAL DAY WHEN YOU WERE DRINKING IN THE PAST YEAR?1 OR 2 (0 POINTS) HOW OFTEN DID YOU HAVE A DRINK CONTAINING ALCOHOL IN THE PAST YEAR?MONTHLY OR LESS (1 POINT) POINTS1 INTERPRETATIONNEGATIVE RECREATIONAL DRUG USE DRUG USE?NO CAFFEINE CAFFEINE USE?NO LANGUAGE LANGUAGES SPOKEN:SWEDISH LEARNING BARRIERS / SPECIAL NEEDS CHANGE FROM LAST VISIT?NO BARRIERS TO LEARNING?NO HEARING IMPAIRED?NO VISION IMPAIRED?NO COGNITIVELY IMPAIRED?NO READINESS TO LEARN?YES LEARNING PREFERENCES?NO LEARNING CAPABILITIES PRESENT?YES EMOTIONAL BARRIERS?NO 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 PATIENT DESCRIBES PAIN :SHOOTING FROM 0-10, WHAT LEVEL IS YOUR PAIN TODAY?7 - PFS REFERRAL NEEDED?NO CLERGY REFERRAL NEEDED?NO PUBLIC HEALTH REFERRAL NEEDED?NO WAS THE PROVIDER NOTIFIED OF ANY PERTINENT INFO?YES HAS THE PATIENT BEEN EDUCATED REGARDING HIS/HER PLAN OF CARE?YES HAS THE PATIENT BEEN EDUCATED REGARDING PAIN, THE RISK FOR PAIN, THE IMPORTANCE OF EFFECTIVE PAIN MANAGEMENT, AND THE PAIN ASSESSMENT PROCESS?YES REVIEW OF SYSTEMS CONSTITUTIONAL: ANY RECENT FEVER NO . CHILLS NO . WEIGHT CHANGE OF UNKNOWN REASONS NO . GASTROENTEROLOGY: NEW UNEXPLAINABLE CHANGES IN BOWEL CONTROL NO . CONSTIPATION NO . GENITOURINARY: ANY NEW CHANGE IN BLADDER CONTROL? NO . NEUROLOGY: NEW ONSET DIZZINESS OR NEUROLOGICAL CHANGES NOT MENTIONED NO . NEW NUMBNESS OR PAIN PATTERNS NOT MENTIONED AND PERTINENT TO TODAY'S VISIT NO . CARDIOLOGY: NEW CHEST PRESSURE NO . PATIENT DENIES NO . RESPIRATORY: UNEXPLAINABLE COUGH NO . NEW SHORTNESS OF BREATH NO . VITAL SIGNS WT 300.4 LBS, HT 72IN, BMI 40.74 INDEX, BP 192/113 MM HG, REPEAT BP 162/98 MANUAL, HR 58 /MIN, RR 18 /MIN, TEMP 97.4 F, OXYGEN SAT % 98%, SAFE IN ENV? (Y/N) YES, REVIEWED BY: ELADIA QUINTANA RETAKEN, VERNA VILLALOBOS MA. EXAMINATION GENERAL EXAMINATION: GENERALNO ACUTE DISTRESS, WELL NOURISHED AND HYDRATED. PSYCHAPPROPRIATE MOOD AND AFFECT . LUNGS:CLEAR TO AUSCULTATION BILATERALLY, NO WHEEZES, RHONCHI, RALES. HEART:NO MURMURS, REGULAR RATE AND RHYTHM. ASSESSMENTS PAIN IN LEG, UNSPECIFIED - M79.606 (PRIMARY) TREATMENT PAIN IN LEG, UNSPECIFIED REFILL GABAPENTIN TABLET, 800 MG, 1 TABLET, ORALLY, TID, 30 DAYS, 90 TABLET, REFILLS 4 START METHOCARBAMOL TABLET, 750 MG, 1 TABLET, ORALLY, EVERY 4 HRS, 30 DAY(S), 180 NOTES: 40-YEAR-OLD MALE IN FOR CHRONIC PAIN FOLLOW-UP. GIVEN PRESENTING SYMPTOMS RECOMMEND STOPPING BACLOFEN AND STARTING METHOCARBAMOL WITH FOLLOW-UP IN 2 MONTHS TO DETERMINE EFFICACY OF TREATMENT. PATIENT HAS ALSO TRIALED AND FAILED CYCLOBENZAPRINE. PATIENT HAS EXPRESSED UNDERSTANDING OF AND WAS IN AGREEMENT WITH TREATMENT PLAN. GIVEN TIME TO ASK QUESTIONS AND EXPRESS CONCERNS. PROCEDURE CODES FA211 ESTABILISHED PATIENT [facility] CHARGE DISPOSITION & COMMUNICATION FOLLOW UP 2 MONTHS (REASON: NEW MEDICATION) ELECTRONICALLY SIGNED BY ADELIA LAMB ON 03/30/2021 AT 08:28 AM EDT DISCLAIMER : THIS IS A VISIT SUMMARY EXTRACTED FROM THE [employer] CHART. IT IS NOT A COPY OF THE [employer] PROGRESS NOTE. MICHELLE
== END ==
LOC: M PAIN 11:00
PROVIDERS: ATTEND Family Medicine
DX: M79.606 Pain in leg, unspecified (principal); G89.29 Other chronic pain; F17.210 Nicotine dependence, cigarettes, uncomplicated; Z88.0 Allergy status to penicillin; E66.01 Morbid (severe) obesity due to excess calories; Z68.41 Body mass index [BMI] 40.0-44.9, adult; Z79.82 Long term (current) use of aspirin; Z79.899 Other long term (current) drug therapy

== ENCOUNTER → 2021-04-20 | Outpatient (CLI) | payer OTHER ==
[2021-04-20 09:24] LABS: HEMOGLOBIN 17.3 g/dl (13.5-17.5); MEAN CORPUSCULAR HEMOGLOBIN 33.1 pg (27.0-33.0); MEAN CORPUSCULAR HGB CONC 33.9 g/dl (32.0-36.5); MEAN CORPUSCULAR VOLUME 97.7 fl (80.0-96.0); PLATELET COUNT, AUTOMATED 180 10^3/uL (150-450); RED BLOOD COUNT 5.22 10^6/uL (4.30-6.10); WHITE BLOOD COUNT 7.5 10^3/uL (4.0-10.0)
[2021-04-20 11:11] LABS: BLOOD UREA NITROGEN 6 MG/DL (7-18); CARBON DIOXIDE LEVEL 31 MEQ/L (21-32); CHLORIDE LEVEL 103 MEQ/L (98-107); CREATININE FOR GFR 0.85 MG/DL (0.70-1.30); GLOMERULAR FILTRATION RATE > 60.0 (>60); GLUCOSE, FASTING 92 MG/DL (70-100); POTASSIUM SERUM 3.9 MEQ/L (3.5-5.1); SODIUM LEVEL 141 MEQ/L (136-145)
[2021-04-20 11:12] LABS: ALBUMIN 3.9 GM/DL (3.2-5.2); ALT/SGPT 111 U/L (12-78); BILIRUBIN,TOTAL 0.8 MG/DL (0.2-1.0); HEPATITIS B SURFACE ANTIGEN NEGATIVE (NEGATIVE); HIV 1&2 SCREEN CENTAUR NEGATIVE (NEGATIVE); TOTAL PROTEIN 7.2 GM/DL (6.4-8.2)
[2021-04-20 11:13] LABS: HEPATITIS C VIRUS ABY INDEX 10.2 INDEX (<0.8)
[2021-04-20 12:01] LABS: GC DNA AMPLIFICATION NEGATIVE (NEGATIVE)
--- NOTE | 2021-04-21 18:48 | ECGEPIP ---
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
== END ==
LOC: M LAB 08:49
PROVIDERS: ATTEND Family Medicine
DX: F11.20 Opioid dependence, uncomplicated (principal)

== ENCOUNTER 2021-05-27 20:03 | Emergency (ER) | payer OTHER ==
[~2021-05-27] VITALS: Ht 167.6 cm; Wt 127.0 kg
[~2021-05-27 20:03] MED LIST changes: -IBUP200T45 PO; +IBUP200T46 PO
[2021-05-27] MEDS ORDERED: KETOROLAC 30 MG/ML 1ML VIAL IV ONE (20:45)
[2021-05-27] MEDS ORDERED: METOCLOPRAMIDE INJ 10MG/2ML VIAL (J2765 PER 1) IV ONE (20:45)
[2021-05-27] MEDS ORDERED: NS 1,000 ML IV ONE (20:45)
[2021-05-27] MEDS ORDERED: ACETAMINOPHEN *IV* 1,000 MG in IV 1 EA IV ONE (20:45)
[2021-05-27 21:04] LABS: BASO # 0.1 10^3/uL (0.0-0.2); BASO % 0.8 % (0.0-1.0); EOS # 0.1 10^3/uL (0.0-0.5); EOS % 1.2 % (0.0-3.0); HEMATOCRIT 51.1 % (42.0-52.0); HEMOGLOBIN 17.3 g/dl (13.5-17.5); LYMPH # 1.9 10^3/uL (1.5-5.0); LYMPH % 24.8 % (24.0-44.0); MEAN CORPUSCULAR HEMOGLOBIN 32.2 pg (27.0-33.0); MEAN CORPUSCULAR HGB CONC 33.9 g/dl (32.0-36.5); MEAN CORPUSCULAR VOLUME 95.2 fl (80.0-96.0); MONO # 0.6 10^3/uL (0.0-0.8); MONO % 7.6 % (2.0-8.0); NEUTROPHILS # 4.9 10^3/uL (1.5-8.5); NEUTROPHILS % 65.3 % (36.0-66.0); PLATELET COUNT, AUTOMATED 208 10^3/uL (150-450); RED BLOOD COUNT 5.37 10^6/uL (4.30-6.10); WHITE BLOOD COUNT 7.5 10^3/uL (4.0-10.0)
[2021-05-27 21:23] VITALS: BP 139/75
[2021-05-27 21:43] LABS: ALBUMIN 3.7 GM/DL (3.2-5.2); ALT/SGPT 170 U/L (12-78); BILIRUBIN,TOTAL 0.6 MG/DL (0.2-1.0); BLOOD UREA NITROGEN 5 MG/DL (7-18); CALCIUM LEVEL 9.6 MG/DL (8.5-10.1); CARBON DIOXIDE LEVEL 25 MEQ/L (21-32); CHLORIDE LEVEL 105 MEQ/L (98-107); CREATININE FOR GFR 0.84 MG/DL (0.70-1.30); GLOMERULAR FILTRATION RATE > 60.0 (>60); GLUCOSE, FASTING 90 MG/DL (70-100); LIPASE 107 U/L (73-393); POTASSIUM SERUM 3.5 MEQ/L (3.5-5.1); SODIUM LEVEL 139 MEQ/L (136-145); TOTAL PROTEIN 7.3 GM/DL (6.4-8.2)
[2021-05-27 21:44] LABS: BILIRUBIN,DIRECT 0.3 MG/DL (0.0-0.2)
[2021-05-27] MEDS ORDERED: ISOVUE-370 76% 100ML VIAL As Ordered ONE (21:56)
[2021-05-27 23:00] LABS: APPEARANCE, URINE HAZY (CLEAR); BACTERIA, URINE AUTO NEGATIVE (NEGATIVE); BILIRUBIN, URINE AUTO NEGATIVE (NEGATIVE); BLOOD, URINE BLOOD 3+ (NEGATIVE); COLOR, URINE YELLOW (YELLOW); GLUCOSE, URINE (UA) AUTO NEGATIVE (NEGATIVE); KETONE, URINE AUTO NEGATIVE (NEGATIVE); LEUKOCYTE ESTERASE, URINE AUTO NEGATIVE (NEGATIVE); MUCUS, URINE SMALL (NEGATIVE); NITRITE, URINE AUTO NEGATIVE (NEGATIVE); PROTEIN, URINE AUTO 1+ mg/dL (NEGATIVE); RBC, URINE AUTO 152 /HPF (0-3); SQUAMOUS EPITHELIAL CELL UR AU 0 /HPF (0-6); UROBILINOGEN, URINE AUTO 0.2 mg/dL (0.0-2.0); WBC, URINE AUTO 9 /HPF (0-3)
[2021-05-27] MEDS ORDERED: CLEO300C2 PO (23:13)
[2021-05-27] MEDS ORDERED: FLOM0.4C39 PO (23:13)
[2021-05-27] MEDS ORDERED: KETO10TAB PO (23:13)
== END 2021-05-27 23:39 | disposition home or self-care (01) ==
LOC: M ED 20:03
DX: H66.91 Otitis media, unspecified, right ear (principal); K76.0 Fatty (change of) liver, not elsewhere classified; N13.2 Hydronephrosis with renal and ureteral calculous obstruction; K42.9 Umbilical hernia without obstruction or gangrene; M87.051 Idiopathic aseptic necrosis of right femur; M87.052 Idiopathic aseptic necrosis of left femur; F19.10 Other psychoactive substance abuse, uncomplicated; F31.9 Bipolar disorder, unspecified; F43.10 Post-traumatic stress disorder, unspecified; Z88.0 Allergy status to penicillin; Z79.899 Other long term (current) drug therapy
CPT/HCPCS: 74177; 80048; 80076; 81001; 83690; 85025; 96361; 96365; 96366; 96375; 99284; J0131; J1885; J2765; Q9967

== ENCOUNTER → 2021-07-26 | Outpatient (CLI) | payer OTHER ==
[~2021-07-26] MED LIST changes: +CLEO300C2 PO; +FLOM0.4C39 PO; +KETO10TAB PO
== END ==
LOC: M PAIN 13:45
PROVIDERS: ATTEND Anesthesiology
DX: M79.604 Pain in right leg (principal); G57.93 Unspecified mononeuropathy of bilateral lower limbs; M79.605 Pain in left leg; F17.210 Nicotine dependence, cigarettes, uncomplicated; Z88.0 Allergy status to penicillin; Z79.891 Long term (current) use of opiate analgesic; Z79.899 Other long term (current) drug therapy

== ENCOUNTER → 2022-05-23 | Outpatient (CLI) | payer OTHER | LOC: M PAIN 10:15 | PROVIDERS: ATTEND Anesthesiology | DX: M79.606 Pain in leg, unspecified (principal); G57.93 Unspecified mononeuropathy of bilateral lower limbs; G89.29 Other chronic pain; I10 Essential (primary) hypertension; F17.210 Nicotine dependence, cigarettes, uncomplicated; Z88.0 Allergy status to penicillin; Z79.891 Long term (current) use of opiate analgesic; Z79.899 Other long term (current) drug therapy ==

== ENCOUNTER → 2022-08-27 | Outpatient (CLI) | payer OTHER | LOC: M PAIN 14:30 | PROVIDERS: ATTEND Anesthesiology | DX: M79.606 Pain in leg, unspecified (principal); S82.90XA Unspecified fracture of unspecified lower leg, initial encounter for closed fracture; I10 Essential (primary) hypertension; F17.210 Nicotine dependence, cigarettes, uncomplicated; Z88.0 Allergy status to penicillin; Z79.899 Other long term (current) drug therapy; X58.XXXA Exposure to other specified factors, initial encounter; Y92.9 Unspecified place or not applicable; Y93.9 Activity, unspecified; Y99.9 Unspecified external cause status ==

== ENCOUNTER → 2022-09-26 | Outpatient (CLI) | payer OTHER | LOC: M TMPAIN 14:00 → M PAIN 14:00 | PROVIDERS: ATTEND Anesthesiology | DX: M79.606 Pain in leg, unspecified (principal); M79.2 Neuralgia and neuritis, unspecified; G89.29 Other chronic pain; I10 Essential (primary) hypertension; F17.210 Nicotine dependence, cigarettes, uncomplicated; Z88.0 Allergy status to penicillin; Z79.891 Long term (current) use of opiate analgesic; Z79.899 Other long term (current) drug therapy ==

== ENCOUNTER 2023-01-05 04:31 | Day surgery (SDC) | payer OTHER ==
[~2023-01-05] VITALS: Ht 193 cm; Wt 118.1 kg
[2023-01-05] VITALS (8 sets, daily range): BP systolic 160–178; BP diastolic 70–92
[2023-01-05] MEDS ORDERED: ONDANSETRON 4MG 2ML VIAL IV ONE (05:05)
[2023-01-05] MEDS ORDERED: NS 1,000 ML IV ONE (05:05)
[2023-01-05] MEDS ORDERED: MORPHINE 4 MG/ML 1ML VIAL IV ONE ×2 (05:05→06:50)
[2023-01-05] MEDS ORDERED: diphenhydrAMINE 50MG/ML VIAL IV STA ×2 (05:19→07:13)
[2023-01-05] MEDS ORDERED: KETOROLAC 30 MG/ML 1ML VIAL IV ONE ×2 (05:20→13:15)
[2023-01-05 05:34] LABS: BASO # 0.1 10^3/uL (0.0-0.2); EOS # 0.2 10^3/uL (0.0-0.5); EOS % 2.5 % (0.0-3.0); HEMATOCRIT 47.8 % (42.0-52.0); HEMOGLOBIN 15.9 g/dl (13.5-17.5); LYMPH # 2.4 10^3/uL (1.5-5.0); LYMPH % 39.1 % (24.0-44.0); MEAN CORPUSCULAR HEMOGLOBIN 32.4 pg (27.0-33.0); MEAN CORPUSCULAR HGB CONC 33.3 g/dl (32.0-36.5); MEAN CORPUSCULAR VOLUME 97.4 fl (80.0-96.0); MONO # 0.6 10^3/uL (0.0-0.8); MONO % 10.5 % (2.0-8.0); NEUTROPHILS # 2.9 10^3/uL (1.5-8.5); NEUTROPHILS % 46.6 % (36.0-66.0); PLATELET COUNT, AUTOMATED 149 10^3/uL (150-450); RED BLOOD COUNT 4.91 10^6/uL (4.30-6.10); WHITE BLOOD COUNT 6.1 10^3/uL (4.0-10.0)
[2023-01-05 05:50] LABS: LIPASE 43 U/L (12-53)
[2023-01-05 05:52] LABS: ALKALINE PHOSPHATASE 117 U/L (46-116); ALT/SGPT 135 U/L (7.0-40); AMYLASE 37 U/L (30-118); AST/SGOT 196 U/L (<34); BILIRUBIN,DIRECT 0.4 MG/DL (<0.4); BILIRUBIN,TOTAL 0.7 MG/DL (0.3-1.2); BLOOD UREA NITROGEN 9 MG/DL (9-23); CALCIUM LEVEL 8.8 MG/DL (8.5-10.1); CARBON DIOXIDE LEVEL 27 MMOL/L (20-31); CHLORIDE LEVEL 103 MMOL/L (98-107); CREATININE FOR GFR 0.79 MG/DL (0.70-1.30); GLOMERULAR FILTRATION RATE > 60.0 (>60); GLUCOSE, FASTING 127 MG/DL (60-100); POTASSIUM SERUM 3.6 MMOL/L (3.5-5.1); SODIUM LEVEL 140 MMOL/L (136-145); TOTAL PROTEIN 7.3 G/DL (5.7-8.2)
[2023-01-05] MEDS ORDERED: fentaNYL 100 MCG/2 ML INJECTION IV ONE (10:05)
[2023-01-05] MEDS: NS 1,000 ML IV SCH ×2 (10:14→14:09)
[2023-01-05] MEDS ORDERED: MED REC COMMENT (10:36)
[2023-01-05] MEDS ORDERED: METOCLOPRAMIDE INJ 10MG/2ML VIAL As Ordered ONE (14:53)
[2023-01-05] MEDS ORDERED: LIDOCAINE 2% 100MG/5ML SDV (FOR ANES.) As Ordered ONE (14:53)
[2023-01-05] MEDS ORDERED: propofoL 200 MG/20 ML VIAL As Ordered ONE (14:53)
[2023-01-05] MEDS ORDERED: ONDANSETRON 4MG 2ML VIAL As Ordered ONE (14:53)
[2023-01-05] MEDS ORDERED: MIDAZOLAM INJ 2MG/2ML VIAL As Ordered ONE (14:54)
[2023-01-05] MEDS ORDERED: fentaNYL 100 MCG/2 ML INJECTION As Ordered ONE (14:54)
[2023-01-05] MEDS ORDERED: ISOVUE-300 61% 100ML VIAL As Ordered ONE (14:58)
[2023-01-05] MEDS ORDERED: CIPROFLOXACIN/D5W 400 MG/200 ML BAG As Ordered ONE (15:07)
[2023-01-05] MEDS ORDERED: ONDANSETRON 4MG 2ML VIAL IV PRN ×2 (16:25→16:40)
[2023-01-05] MEDS ORDERED: ACETAMINOPHEN TAB 650MG DOSE (2X325MG) PO PRN (16:25)
[2023-01-05] MEDS ORDERED: oxyBUTYnin 5 MG TAB PO PRN (16:25)
[2023-01-05] MEDS ORDERED: NS 1,000 ML IV SCH (16:25)
[2023-01-05] MEDS ORDERED: LR 1,000 ML IV SCH (16:40)
[2023-01-05] MEDS ORDERED: METOCLOPRAMIDE INJ 10MG/2ML VIAL IV PRN (16:40)
[2023-01-05] MEDS ORDERED: MEPERIDINE 25 MG/ML 1ML VIAL IV PRN (16:40)
[2023-01-05] MEDS: fentaNYL 100 MCG/2 ML INJECTION IV PRN ×4 (16:40→16:55)
[2023-01-05] MEDS: PERCOCET 5MG/325MG TAB PO PRN ×2 (16:41→17:11)
[2023-01-05] MEDS ORDERED: FUROSEMIDE 20MG/2ML VIAL IV ONE (20:00)
[2023-01-05] MEDS: KETOROLAC 30 MG/ML 1ML VIAL IV PRN (20:13)
[2023-01-05] MEDS: PHENAZOPYRIDINE 100 MG TAB PO SCH (20:32)
[2023-01-05] MEDS ORDERED: METHADONE 10MG TAB PO ONE (22:00)
[2023-01-05] MEDS ORDERED: amLODIPine 5 MG TAB PO ONE (22:00)
[2023-01-06 02:00] VITALS: BP 150/70
[2023-01-06] MEDS ORDERED: CIPROFLOXACIN 400 MG in IV 1 EA IV SCH (03:00)
[2023-01-06] MEDS: KETOROLAC 30 MG/ML 1ML VIAL IV PRN (03:39)
[2023-01-06 04:25] VITALS: BP 100/70
[2023-01-06 04:56] VITALS: BP 162/90
[2023-01-06] MEDS ORDERED: diphenhydrAMINE 50MG/ML VIAL IV ONE (05:00)
[2023-01-06 06:00] VITALS: BP 150/86
[2023-01-06] MEDS ORDERED: HOME MED LIST COMPLETE! XX SCH (06:20)
[2023-01-06] MEDS: PHENAZOPYRIDINE 100 MG TAB PO SCH (08:52)
[2023-01-06] MEDS ORDERED: oxyBUTYnin *DITROPAN XL* 5 MG TABCR PO SCH (09:00)
[2023-01-06] MEDS ORDERED: DITR5TAB PO (09:25)
[2023-01-09 21:08] LABS: CA Oxalate Dihy 80 % (.); Ca Ox Monohydrate 20 % (.)
== END 2023-01-06 09:49 | disposition home or self-care (01) ==
LOC: M ED 04:31 → M SDC 04:32 → M MSPAV 17:15 → M SDC 01-06 09:49
PROVIDERS: ATTEND Urology
DX: N13.2 Hydronephrosis with renal and ureteral calculous obstruction (principal); F43.10 Post-traumatic stress disorder, unspecified; F31.9 Bipolar disorder, unspecified; F17.210 Nicotine dependence, cigarettes, uncomplicated; Z88.0 Allergy status to penicillin; Z79.891 Long term (current) use of opiate analgesic; Z79.899 Other long term (current) drug therapy
CPT/HCPCS: 52356; 74420; 80048; 80076; 81001; 82150; 82365; 83690; 85025; 87635; 93041; 96361; 96365; 96375; 96376; 99285; C1769; C2617; J0744; J1100; J1200; J1885; J1940; J2250; J2405; J2765; J3010; Q9967